=== PATIENT | male | born 1995 | race Caucasian/White ===

== ENCOUNTER 2024-05-14 09:21 | Outpatient (AMB) | payer MEDICAID, SELFPAY ==
[2024-05-14 09:22] VITALS: BP 130/76; PULSE 73; BMI 32.3
--- NOTE | 2024-05-14 09:22 | MHC.OFFVIS ---
Vital Signs 05/14/24 09:22 Height 5 ft 10 in Weight 224 lb 13.944 oz BMI 32.3 BP 130/76 Blood Pressure Location Lt brachial Position Sitting Pulse 73 Intake Visit Reasons: Weight Loss Intake Note: Emile presents as a new patient. CC: States he has a hiatal hernia and issues with his stools. He has 3 BMs a day. Sometimes it is on the looser side and blood when he wipes. Had a CT scan and it showed hiatal hernia. 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 Allergies pollen Allergy (Unknown, Uncoded 05/14/24 09:23) Unknown HPI HPI Weight Loss: Details: HPI 29 yr old m being seen for assessment He has issues with crampy pain on and off 4 months around umbilical area not relieved with passing gas or stool, no worsening factors goes daily to bath, but stools more softer than normal, shape also changed, seen blood when wipes no n/v he takes omeprazole for gerd and it works he has bloating sometimes weight is stable appetite is fair ROS: Constitutional : No Weight loss, No Fever, No Chills ENT/Mouth : No sore throat, No Rhinorrhea Eyes: No Swelling, No Redness Cardiovascular : No Chest Pain, No SOB, No Edema Respiratory : No Cough, No Sputum, No Wheezing Gastrointestinal : see HPI Genitourinary : NO Dysuria, No Urinary Frequency, No Hematuria, No Urgency Musculoskeletal : No joint pain, No Myalgias, No Joint Swelling Skin : No Skin Lesions, No rash Neuro : No Weakness, No Numbness, No Dizziness, No Headache Psych : No Anxiety/Panic, + Depression Heme/Lymph: No Bruising, No Lymphadenopathy Endocrine : No Polyuria, No Polydipsia All other systems reviewed and are negative. 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 VITAL SIGNS:see workflow HEENT: Nonicteric sclerae, PERRLA, EOMI. Oropharynx clear. Moist mucous membranes. Conjunctivae appear well perfused. No thyroid mass. CHEST: Chest wall is nontender. HEART: Regular rate and rhythm without murmurs. LUNGS: Clear to auscultation bilaterally. ABDOMEN: Soft, positive bowel sounds, nontender, no organomegaly.no flank tenderness SKIN: No rash, no excessive bruising, petechiae, or purpura. NEUROLOGIC: Cranial nerves II-XII intact without motor/sensory deficit. Psych: normal affect A/P: 1/ abn bowel habit--FH of CRC and polyps in second degree relatives PLAN: 1/ he had labs and CT done at [facility], get results 2/ EGD and colonoscopy with [facility] Family History (Updated 05/14/24 @ 09:23 by LESLIE Sawant) Maternal Grandfather Colon cancer Maternal Uncle Colon cancer Physical Exam Vital Signs: Last Vital Signs Pulse 73 05/14/24 09:22 BP 130/76 05/14/24 09:22 BMI result Body Mass Index 32.3 Assessment & Plan Assessment & Plan (1) Abnormal bowel habits: Code(s): R19.8 - Other specified symptoms and signs involving the digestive system and abdomen Category: Medical Plan: see above Medications: New sodium,potassium,mag sulfates 17.5-3.13-1.6 gram (Suprep Bowel Prep Kit) DILUTE; drink 1/2 at 6-8 pm and half at 11 PM- 1AM 354 mL 0RF Coding Level of Care Code New Pt Level 4 (15675) Diagnoses Abnormal bowel habits R19.8
--- OUTSIDE RECORDS SUMMARY | 2024-05-14 09:44 | XMS_ITS | Data Portability ---
Author Organization [facility]oe [facility] [address] Address [address] [place] [address] Assessment Encounter Date Assessment Date Assessment LastModified by Organization Details LastModified Time 07/18/2023 07/18/2023 Based on you jason m and presentation I am diagnosing you with a viral gastroenteritis. This should resolve on its own without any intervention in 1-5 days. This may be contagious to try and avoid family members while you are sick. Use a seperate bathroom if possible. These are my recommendations to help with your symptoms and help you recover: 1. Drink plenty of fluid and stay hydrated. 2. Wash hands and home surfaces regularly. 3. Do not share food or drinks 4. Try to eat foods like toast, chicken broth, bananas. 5. Stay away from Gatorade, but you can drink pedialyte, soda, or water. 6. Avoid Dairy I would be seen again if you develop: 1. Severe abdominal pain 2. Vomiting more than 48 hours 3. Fever > 101.0 4. Blood in Stool 5. Blood in Urine. Thank you for using [facility], please feel free to contact us if you have any questions or concerns. rylee Not available 07/18/2023 09:58:02 Plan of Treatment Reminders Order Date Submit Date Provider Last Modified By Organization Details Last Modified Time Details Appointments None recorded. Lab None recorded. Referral None recorded. Procedures None recorded. Surgeries None recorded. Imaging None recorded. Medication Orders Imodium A-D 2 mg tablet 2023 024 [facility][id number], [address] [place], [address], 09:57:44 ondansetron 4 mg disintegrat ing tablet 2023 024 [facility]/Pharmacy #[id number], [address] [place], [address], 09:57:44 Patient TargetsNo targets recorded. Patient Instructions Encounter Date Encounter Id Patient Instructions Last Modified By Organization Details Last Modified Time 07/18/2023 [id number] diarrhea: care instructions ronchaga Not available 07/18/2023 09:57:42 managing nausea from cancer treatment: care instructions ronchaga Not available 07/18/2023 09:57:42 gastroenteritis: care instructions ronchaga Not available 07/18/2023 09:57:42 Reason for Referral None Reported. Problems Name Problem SNOMED Code Status Onset Date Resolution Date Notes Provider Name and Address Organization Details Recorded Time Gastroenteritis 50306021 Active 2023 KIRA FIELDS NP [address] , [place], [place], [address], [place] - [facility] 09:55:10 Nausea, vomiting and diarrhea 3759967 Active 2023 KIRA FIELDS NP [address] , [place], [address], [place] - [facility] 4 09:55:19 Diarrhea 94153190 Active 2023 KIRA FIELDS NP [address], [place], [address], [place] - [facility] 09:55:41 Problem Notes None recorded. Medical Equipment None Reported. Allergies No known drug allergies Medications Name Sig Start Date Stop Date Status Note LastModified by Organization Details LastModified Time Imodium A-D 2 mg tablet Take 1 tablet 3 times a day by oral route for 5 days. 2023 active Not Available Not Available Not Avai lable ondansetron 4 mg disintegrati ng tablet Place 2 tablets twice a day by translingua l route as needed, for nausea. 2023 active Not Available Not Available Not Avai lable Vitals Date Recorded Body height Body mass index (BMI) Body weight Oxygen saturation Oxygen saturation in Arterial blood by Pulse oximetry Respiratory rate Body temperature Systolic blood pressure Diastolic blood pressure Provider Name and Address Organization Details Last Updated DateTime 4 177.8 cm 30.8 kg/m2 32652.3 6 g 98 % 98 % 16 /min 97.8 [degF] 118 mm[Hg] 82 mm[Hg] Vida Rivera [place] - [facility] 09:40:23 Social History Question Answer Notes LastModified by Organizat ion Details LastModified Time Tobacco Smoking Status Never Smoker Vida Rivera sierra [place] - [facility] 07/18/2023 09:41:33 What Is Your Level Of Alcohol Consumption? None Information not available 07/18/2023 Are You Currently Employed? Yes Information not available 07/18/2023 Which Illicit Or Recreational Drugs Have You Used? James Information not available 07/18/2023 What Is Your Water Source? City Information not available 07/18/2023 What Is Your Heat Source? Gas Information not available 07/18/2023 Have You Had Direct Contact, Or Contact During Intimacy, With Monkeypox Rash, Scabs, Or Body Fluids From A Person With Monkeypox? No Information not available 07/18/2023 What Was The Date Of Your Most Recent Tobacco Screening? 07/18/2023 Information not available 07/18/2023 Do You Use Any Illicit Or Recreational Drugs? Yes Information not available 07/18/2023 Have You Recently Traveled Abroad? No Information not available 07/18/2023 Do You Or Have You Ever Used Any Other Forms Of Tobacco Or Nicotine? No Information not available 07/18/2023 Sex: Unknown Functional Status None recorded. Mental Status None recorded. Family History Relationship Description Onset Age of this Age Resolved Age Notes LastModified by Organization Details LastModified Time Mother Diabetes mellitus Not available 2023 09:41:04 Father Hypertensive disorder Not available 2023 09:41:17 Medical History No medical history recorded. Past Encounters Encounter ID Performer Location Encounter Start Date Encounter Closed Date Diagnosis/Indication Diagnosis SNOMED-CT Code Diagnosis ICD10 Code Diagnosis Note [id number] [address] [place] [address] 12/21/2021 12:08:55 12/21/2021 13:39:30 [id number] [address] [place] [address] 03/29/2020 10:58:17 03/29/2020 15:58:49 [id number] [place] [address] 06/26/2021 16:55:45 06/26/2021 17:53:15 [id number] [address] [place] [address] 10/22/2019 14:19:12 10/22/2019 15:40:31 [id number] KIRA FIELDS NP [address] [place] [address] 07/18/2023 09:22:00 07/18/2023 10:02:28 Nausea, vomiting and diarrhea 7080385 R11.2 Gastroenteritis 64941060 K52.9 Diarrhea 41100341 R19.7 Health Concerns Section Related Observation LastModified by Organization Detai ls LastModified Time None Recorded Concern Status LastModified by Organization Details LastModified Time None Recorded Advance Directives Directive None Recorded Payers Encounter Date Sequence Insurance Name Policy Number Policy Leon Covered Member ID Leon Member ID Guarantor Name 07/18/2023 [facility] Emile Cornelius [id number] Emile Cornelius Notes Date Note Type Note Provider Name and Address Organization Details Recorded Time 07/18/2023 text/html Abdominal PainReported bypatient.source of patient informationpatient ; Patient arrived at Urgent Care ambulatory Location:generaliz ed Quality:sharp;cram ping Severity:pain level 2/10;mild Duration:started: (yesterday) Onset/Timing:sudde n Context:no travel; Denies history of IBS or Crohns Disease. Modifying Factors:nothing makes it worse; nothing gives relief Associated Symptoms:no fever; no chills; no nausea; no vomiting; no diarrhea; no constipation; no blood in the urine; no heartburn; no shortness of breath; no change in bowel/bladder habitsNotes:The patient reports still has gallbladder and Appendix. Pt has , vomiting nausea and diarrhea,no new foods taken and no fever, diarrhea x3 today , no confusion, no head ache and no dizziness KIRA FIELDS NP [address] [place], [address], [place] - [facility] 07/18/2023 11:11:04
--- OUTSIDE RECORDS SUMMARY | 2024-05-14 09:44 | XMS_ITS | Data Portability ---
Author Organization [place] [facility] Address [address] [place] [phone] Assessment No assessment recorded. Plan of Treatment Reminders Order Date Submit Date Provider Last Modified By Organization Details Last Modified Time Details Appointments NEW PROBLEM 2024 10:15A M Jeovanny mera PA-C Not available Not available Not available Lab None recorde d. Referral physica l therapi st referra l - s/p Right knee AAA w/ partial lateral menisec antwan ROM as tolerat edstren gthenin g once full gait trainin g [facility], [address] [place], [address], 09/11/2023 12:41:20 Procedures None recorde d. Surgeries knee arthros copy with partial medial or lateral menisce ctomy (SURG) 2023 024 [email or web address] [facility]iology (Scheduling), [address] [place] [address], [address], 03/29/2024 15:50:33 Imaging XR, knee, 4 or more view - RM 219 RIGHT KNEE STANDAR D [facility], [address], [facility] [address], [place], [address], 08/30/2023 20:35:55 Medication Orders None recorde d. Patient TargetsNo targets recorded. Patient InstructionsNo instructions recorded. Reason for Referral Physical Therapist Referral for Acute tear of lateral meniscus of right knee s/p Right knee AAA w/ partial lateral menisectomy ROM as toleratedstrengthening once full gait training Referring Physician: Jeovanny Dodson, Orthopedic Surgery, [id number] Encounter Date: 08/26/2023 Medical Equipment None Reported. Medications Name Sig Start Date Stop Date Status Note LastModified by Organization Details LastModified Time loperamide 2 mg capsule TAKE 1 CAPSULE BY MOUTH THREE TIMES A DAY FOR 5 DAYS active Not Available Not Available N ot Available sulfamethoxa zole 800 mg-trimethop rim 160 mg tablet TAKE 1 TBALET BY MOUTH TWICE A DAY FOR 7 DAYS active Not Available Not Available No t Available doxycycline monohydrate 100 mg tablet TAKE 1 TABLET BY MOUTH TWICE A DAY FOR 7 DAYS active Not Available Not Available No t Available doxycycline monohydrate 100 mg capsule TAKE 1 CAPSULE BY MOUTH TWICE A DAY FOR 7 DAYS active Not Available Not Available No t Available ibuprofen 600 mg tablet TAKE 1 TABLET BY MOUTH EVERY 6 HOURS NEEDED FOR MODERATE PAIN active Not Available Not Available No t Available ondansetron 4 mg disintegrati ng tablet PLACE 2 TABLETS TWICE A DAY BY TRANSLINGUA L ROUTE NEEDED, FOR NAUSEA. active Not Available Not Available No t Available naproxen 500 mg tablet Take 1 tablet twice a day by oral route for 30 days. 2023 active Not Available Not Available Not Avai lable oxycodone 5 mg tablet TAKE 1-2 TABLETS EVERY 6 HOURS NEEDED FOR 3 DAY RX. active Not Available Not Available No t Available Vitals Date Recorded Body height Body mass index (BMI) Body weight Body temperature Heart rate Oxygen saturation Oxygen saturation in Arterial blood by Pulse oximetry Systolic blood pressure Diastolic blood pressure Provider Name and Address Organization Details Last Updated DateTime 4 177.8 cm 31.6 kg/m2 15997.3 2 g 97.6 [degF] 98 /min 59 % 59 % 120 mm[Hg] 70 mm[Hg] LIV FERNANDEZ [facility] 4 11:14:26 Date Recorded Body height Body mass index (BMI) Body weight Body temperature Provider Name and Address Organization Details Last Updated DateTime 08/26/2023 177.8 cm 31.6 kg/m2 75314.32 g 97.3 [degF] URVASHI RUBI [facility] 08/26/2023 11:14:56 Social History None recorded. Functional Status None recorded. Mental Status None recorded. Family History Nothing Reported. Medical History No medical history recorded. Past Encounters Encounter ID Performer Location Encounter Start Date Encounter Closed Date Diagnosis/Indication Diagnosis SNOMED-CT Code Diagnosis ICD10 Code Diagnosis Note [id number] [address] [place] [address] 08/06/2023 10:19:48 08/30/2023 20:35:55 Pain of right knee joint 4375197381 89379 M25.561 Acute tear of lateral meniscus of right knee 4654311472 0978742 S83.281A [id number] Jeovanny Dodson PA-C [address] [place] [address] 08/26/2023 10:59:57 09/11/2023 12:41:20 Acute tear of lateral meniscus of right knee 9888204054 3681676 S83.281A Health Concerns Section Related Observation LastModified by Organization Detai ls LastModified Time None Recorded Concern Status LastModified by Organization Details LastModified Time None Recorded Advance Directives Directive None Recorded Payers Encounter Date Sequence Insurance Name Policy Number Policy Leon Covered Member ID Leon Member ID Guarantor Name 08/06/2023 [facility] Emile Cornelius [id number] Emile Cornelius 08/26/2023 [facility] Emile Cornelius [id number] Emile Cornelius Notes Date Note Type Note Provider Name and Address Organization Details Recorded Time 08/06/2023 text/html I am seeing the patient today under the supervision of Dr. Deleon who was available but who did not see the patient.HPI: Emile presents for ongoing pain across the lateral aspect of the right knee. He is a 28-year-old male carrier was experiencing pain across the lateral knee since March. He does feel that symptoms may have been initially caused in [place] [employer] in 2016 but cannot confirm. He experiences a catching a LOC sensation with a buckling affected knee. He has pain across the lateral knee with ambulation. 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 MRI confirms presence of a bucket handle type tear of the lateral meniscus with some early chondral/degenerative changes to the lateral compartmentPMH: NoneFamily Hx: NegativeMeds: No current medicationsAllergies: No known drug allergiesROS: NegativeSocial Hx: NegativePHYSICAL EXAMINATION: The patient is well appearing and in no apparent distress. Alert and oriented x3. Gait is symmetric.EXAM:HEENT is unremarkableHeart regular rate and rhythm without murmurs rubs gallopsAbdomen soft nontender nondistended positive bowel sounds.Lungs are clear bilaterally without rales rhonchi or wheezesPeripheral, vascular, lymphatic examination, skin, neurological, coordination, reflexes, sensation are within normal limits.Left Knee ROM is full, stability intact both anterior, posterior, and varus/valgus stress at both 0 and 30 degrees of flexion. No meniscal tenderness. Negative Miriam's maneuver. No crepitus,no effusion, 5/5 strength.Right Knee ROM is full, stability intact both anterior, posterior, and varus/valgus stress at both 0 and 30 degrees of flexion. 2+ meniscal tenderness. Positive Miriam's maneuver. No crepitus,no effusion, 5/5 strength.IMPRESSION: Right knee torn (bucket handle type tear) lateral meniscusPLAN: Patient remains frustrated by his lack of improvement like to proceed with right knee arthroscopy and partial lateral meniscectomy Dr. Mak. Risks benefits expectation short-term goals long-term goals all of which were discussed today. No physical exam findings that would prevent patient from going for surgery this time. Expectations length of time of recovery and time to miss from work were discussed in detail today. The patient like proceed as outlined at this time. Jeovanny Dodson PA-C [address] [facility], [place], [address], [facility] 08/06/2023 11:50:37 08/26/2023 text/html I am seeing the patient today under the supervision of Dr. Izaguirre who was available but who did not see the patient.Patient returns postop right knee arthroscopy. Treated with partial lateral meniscectomy. Also found arthritic changes to the knee to include: Great 2/3 changes to the patellofemoral compartment and minor grade 2 changes laterally.Patient returns doing well. Denies any local or systemic signs of infection. Denies any calf pain.On exam: Afebrile, vital signs stable. Knee portal wounds were clean, dry, and intact. Sutures were removed and replaced with Steri-Strips. Comfortable range of motion the knee. Calf was supple.Impression: Status post arthroscopy of the kneePlan: Reviewed intraoperative findings, photos, and postoperative care. Discussed slow transition to activities per tolerance. Patient is to follow-up in the future as needed. Jeovanny Dodson PA-C [address], [place], [address], [facility] - [facility] 08/26/2023 11:21:23
--- OUTSIDE RECORDS SUMMARY | 2024-05-14 09:44 | XMS_ITS | Clinical Summary ---
Author Organization [facility] ity Address [address] [place] [address] Care Team Providers Care Investor Relations Associate Name Role Phone Unavailable Primary Care Provider Unavailabl e Social History Tobacco Use Types Packs/Day Years Used Date Smoking Tobacco: Never Assessed Sex and Gender Information Value Date Recorded Sex Assigned at Not on file Legal Sex Male 9:03 PM EST Gender Identity Not on file Sexual Orientation Not on file Plan of Treatment Health Maintenance Due Date Last Done Comments DTaP,Tdap,and Td Vaccines (1 - Tdap) 01/29/2003 Hepatitis B Vaccines (1 of 3 - 19+ 3-dose series) 01/29/2015 Depression Screening 04/25/2023 HIV Screening 04/25/2023 Hepatitis C Screening 04/25/2023 Social Influencers of Health Screening 04/25/2023 COVID-19 Vaccine ( - 2023-2 5 season) 2023 Influenza Vaccine (#1) 2023 HIB Vaccines Aged Out No longer eligi ble based on patient's age to complete this topic HPV Vaccines Aged Out No longer eligi ble based on patient's age to complete this topic Hepatitis A Vaccines Aged Out No long er eligible based on patient's age to complete this topic IPV Vaccines Aged Out No longer eligi ble based on patient's age to complete this topic MMR Vaccines Aged Out No longer eligi ble based on patient's age to complete this topic Meningococcal ACWY Vaccine Aged Out N o longer eligible based on patient's age to complete this topic Meningococcal B Vacine Aged Out No lo nger eligible based on patient's age to complete this topic Pneumococcal Vaccine: Pediat rics (0 to 5 Years) and At-Risk Patients (6 to 64 Years) Aged Out No longer eligible b ased on patient's age to complete this topic RSV Immunization Patients Un nikolay 20 months Aged Out No longer eligible b ased on patient's age to complete this topic Varicella Vaccines Aged Out No longer eligible based on patient's age to complete this topic
== END 2024-05-14 10:02 | disposition home or self-care (01) ==
PROVIDERS: PCP Pediatrics; Visit Provider Internal Medicine Gastroenterology
DX: R19.8 Other specified symptoms and signs involving the digestive system and abdomen (principal)
CPT/HCPCS: 99204

== ENCOUNTER → 2024-05-14 09:21 | Outpatient (BNVA) | payer MEDICAID, SELFPAY | PROVIDERS: PCP Pediatrics; Visit Provider Internal Medicine Gastroenterology | DX: R19.8 Other specified symptoms and signs involving the digestive system and abdomen (principal) | CPT/HCPCS: 99202 ==

== ENCOUNTER 2024-07-22 11:00 | Day surgery (SDC) | payer OTHER, SELFPAY ==
[2024-07-20 14:17] VITALS: BMI 32.1
--- OUTSIDE RECORDS SUMMARY | 2024-07-21 08:19 | XMS_ITS | Encounter Summary ---
Author Name [facility] [place] Organization [facility] [place] [facility] [place] Address [address] [place] [address] Care Team Providers Care Wrapper Hands Sprayer Name Role Phone MAK TARIQ Primary Care Provider Unavailab le Selected Encounter This section includes the information on record at [place] for the Encounter. Date/Time Encounter Type Encounter Description Reason Provider Source Apr 22, 2024 10:30 AM [facility]NA[facility] - IND ICD-10-CM F43.12 Post-traumatic stress disorder, chronic BETZAIDA RABAGO Luisa Encounter Template Text not used by [place] Assessments - Encounter Diagnoses This section includes the primary and secondary diagnoses documented for the Encounter. Date/Time Primary/Secondary Diagnosis Diagnosis Name Provider Source Apr 22, 2024 10:59 AM PRIMARY Post-traumatic stress disorder, chronic BETZAIDA RABAGO Apr 22, 2024 10:59 AM SECONDARY Anxiety disorder, unspecified BETZAIDA RABAGO Apr 22, 2024 10:59 AM SECONDARY Insomnia, unspecified BETZAIDA RABAGO Apr 22, 2024 10:59 AM SECONDARY activity BETZAIDA RABAGO YINA Plan of Treatment: Future Appointments (+ 6 months) and Future Tests (+/- 45 days) The Plan of Treatment section includes future care activities for the patient from all [place] treatmentfacilities. This section includes future appointments and future orders which are active, pending or scheduled. Future Appointments This section includes appointments that were scheduled to occur 6 months from the date of the Encounter, up to a maximum of 20 appointments. The data comes from all [place] treatment facilities. Appointment Date/Time Appointment Type Appointme nt Facility Name Apr 26, 2024 11:30 AM AMBULATORY [place]ATRY [place] [facility] [place] [facility] Apr 29, 2024 08:00 AM [facility] May 27, 2024 11:30 AM [facility] Jun 02, 2024 10:15 AM AMBULATORY - MEDICINE [facility] Jun 22, 2024 11:30 AM [facility] Jul 22, 2024 12:20 PM [facility] Active, Pending, and Scheduled Orders This section includes a listing of several types of active, pending, and scheduled orders, including clinic medications orders, diagnostic test orders, procedure orders and consult orders; where the start date of the order is 45 days before the date of the Encounter or 45 days after the date of theEncounter. The data comes from all [place] treatment facilities. Test Date/Time Test Type Test Details Facility Name May 18, 2024 10:18 AM Consult Order REPLACED BY [facility] Toll Line Mechanic's Choice [facility] Lab Results: +/- 30 days of the encounter This section includes the Chemistry and Hematology Lab Results on record with [place] for the patient. Radiology Reports and Pathology Reports are provided separately, in subsequent sections. Lab Results This section contains the Chemistry/Hematology Results that were resulted 30 days before or 30 daysafter the date of the Encounter. Date/Time Source Result Type Result - Unit Interpretation Reference Range Specimen Type Comment May 04, 2024 02:38 PM [facility] SEMEN ANALYSIS,FERTILITY (FHI) SEMINAL FLUID Specimen Type: SEMINAL FLUID No comment entered. Ordering Provider: MAK TARIQ Report Released Date/Time: Apr 18, 2024 09:55 AM Reporting Lab: [facility] [address] [address] Performing Lab: [address] [address] SEMEN ANALYSIS,FERTILITY (FHI) SEE LIZBETH Justice Apr 14, 2024 01:50 PM [facility] CBC AND DIFF (AUTO) BLOOD Specimen Ty pe: BLOOD No comment entered. Ordering Provider: MAK TARIQ Report Released Date/Time: Apr 14, 2024 01:26 PM Reporting Lab: [facility] [address] [address] Performing Lab: [facility] [address] [address] WBC 10.70 10*3/uL 4.50-11.00 RBC 4.73 10*6/uL 4.23-5.66 HGB 14.5 g/dL 12.8-17 HCT 41.5 39.2-50.4 MCV 87.7 fL 82-99 MCHC 34.9 g/dL 30.8-35.1 PLT 257 10*3/uL 140-360 RDW-CV 11.7 L 12.0-16.0 MONO, ABS 0.69 10*3/uL 0.30-1.10 MCH 30.7 pg 26.2-32.6 NEUT % 61.4 43.7-75.8 LYMPH % 30.5 14.0-42.3 MONO % 6.4 5.1-13.7 EOS % 0.8 0.4-6.8 BASO % 0.4 0.1-2.0 NEUT, ABS 6.57 10*3/uL 2.20-7.60 LYMPH, ABS 3.26 10*3/uL H 1.00-3.20 EOS, ABS 0.09 10*3/uL 0.03-0.44 BASO, ABS 0.04 10*3/uL 0.01-0.13 IMMATURE GRAN % 0.5 0.0-0.7 IMMATURE GRAN, ABS 0.05 10*3/uL 0.00-0.0 6 NRBC % 0.0 0.0-0.0 NRBC, ABS 0.00 10*3/uL 0.00-0.00 Apr 14, 2024 01:16 PM [facility] COVID-19 FLU/RSV DIAGNOSTIC PANEL NASOPHARYNX Specimen Type: NASOPHARYNX Comment: This test is authorized for emergency use only. False negative results may occur if virus is present at levels below the analytical limit of detection.Negative results do not preclude SARS-CoV-2, influenza or RSV infection and should not be used as the sole basis for treatment or other patient management decisions.Cepheid FLUVID: HCPs: https://www.fda.gov/media/034430/download. Patients: https://www.fda.gov/media/893138/download Ordering Provider: MAK TARIQ Report Released Date/Time: Apr 14, 2024 01:05 PM Reporting Lab: [facility] [address] [address] Performing Lab: [facility] [address] [address] COVID-19 PCR (FLUVID) NEGATIVE NEGATIVE FLU A PCR (FLUVID) NEGATIVE FLU B PCR (FLUVID) NEGATIVE RSV PCR (FLUVID) NEGATIVE Apr 08, 2024 10:18 AM [facility] URINALYSIS URINE Specimen Type: URINE Comment: If Glucose = >500 and Ketones are positive, please alert the Physician. Ordering Provider: CLEO HOPKINS Report Released Date/Time: Mar 30, 2024 10:57 AM Reporting Lab: [facility] [address] [address] Performing Lab: [facility] [address] [address] UA COLOR Light-Yellow Yellow UA APPEARANCE Clear Clear UA GLUCOSE Normal mg/dL Negative UA KETONES NEGATIVE mg/dL Negative UA BLOOD NEGATIVE mg/dL Negative UA PROTEIN 10 mg/dL Negative UA NITRITE NEGATIVE mg/dL Negative UA BILIRUBIN NEGATIVE mg/dL Negative UA SPECIFIC GRAVITY 1.019 1.016-1.022 UA pH 6.5 5.0-9.0 UA UROBILINOGEN Normal mg/dL <2.0 UA LEUKOCYTE NEGATIVE Negative Apr 08, 2024 10:08 AM [facility] TSH SERUM Specimen Type: SERUM No comment entered. Ordering Provider: CLEO HOPKINS Report Released Date/Time: Apr 15, 2023 03:54 PM Reporting Lab: [facility] [address] [address] Performing Lab: [address] [address] TSH 1.08 u[IU]/mL 0.35-5.00 Apr 08, 2024 10:08 AM [facility] BASIC METABOLIC PANEL (fasting) SERUM Specime n Type: SERUM No comment entered. Ordering Provider: CLEO HOPKINS Report Released Date/Time: Apr 15, 2023 03:54 PM Reporting Lab: [address] [address] Performing Lab: [address] [address] UREA NITROGEN 16 mg/dL 7-25 GLUCOSE 94 mg/dL 65-100 SODIUM 139 mmol/L 135-145 POTASSIUM 4.1 mmol/L 3.5-5.0 CHLORIDE 106 mmol/L 100-110 CO2 25 meq/L 20-30 CREATININE, Serum 1.17 mg/dL 0.50-1.40 eGFR(CKD-EPI 2020) 87 mL/min >60 Apr 08, 2024 10:08 AM [facility] LIPID PANEL FASTING SERUM Specimen Type: SERU M No comment entered. Ordering Provider: CLEO HOPKINS Report Released Date/Time: Apr 15, 2023 03:54 PM Reporting Lab: [address] [address] Performing Lab: [address] [address] CHOLESTEROL 146 mg/dL TRIGLYCERIDE 103 mg/dL 0-150 LDL calculated 87 mg/dL 0-129 CHOL/HDL 3.8 HDL CHOLESTEROL 38 mg/dL L 40-60 Apr 08, 2024 10:08 AM [facility] HEMOGLOBIN A1C PANEL BLOOD Specimen Type: BLO OD Comment: Values obtained from A1C measurements can vary. For atypical A1C assays, a reported value of 7.0 could actually be between 6.72 and 7.28 if measured by a reference method. A reported value of 9.0 could actually be between 8.73 and 9.27. Ref: http://www.ngsp.org/CAPdata.asp Ordering Provider: CLEO HOPKINS Report Released Date/Time: Apr 15, 2023 03:54 PM Reporting Lab: [address] [place] [address] Performing Lab: [address] [address] HEMOGLOBIN A1C 5.0 4.0-5.6 Apr 08, 2024 10:08 AM [facility] LIVER FUNCTION SERUM Specimen Type: SERUM No comment entered. Ordering Provider: CLEO HOPKINS Report Released Date/Time: Apr 15, 2023 03:54 PM Reporting Lab: [address] [address] Performing Lab: [address] [address] PROTEIN,TOTAL 7.4 g/dL 6.0-8.3 ALBUMIN 4.5 g/dL 3.5-5.0 ALKALINE PHOSPHATASE 67 U/L 40-150 AST 20 U/L 5-34 ALT 47 U/L BILIRUBIN, TOTAL 0.7 mg/dL 0.2-1.2 Apr 08, 2024 10:08 AM [facility] CBC AND DIFF (AUTO) BLOOD Specimen Type: BLOO D No comment entered. Ordering Provider: CLEO HOPKINS Report Released Date/Time: Apr 15, 2023 03:54 PM Reporting Lab: [address] [address] Performing Lab: [address] [address] WBC 12.14 10*3/uL H 4.50-11.00 RBC 5.20 10*6/uL 4.23-5.66 HGB 15.9 g/dL 12.8-17 HCT 45.7 39.2-50.4 MCV 87.9 fL 82-99 MCHC 34.8 g/dL 30.8-35.1 PLT 222 10*3/uL 140-360 RDW-CV 11.8 L 12.0-16.0 MONO, ABS 0.74 10*3/uL 0.30-1.10 MCH 30.6 pg 26.2-32.6 NEUT % 80.0 H 43.7-75.8 LYMPH % 12.9 L 14.0-42.3 MONO % 6.1 5.1-13.7 EOS % 0.3 L 0.4-6.8 BASO % 0.2 0.1-2.0 NEUT, ABS 9.72 10*3/uL H 2.20-7.60 LYMPH, ABS 1.56 10*3/uL 1.00-3.20 EOS, ABS 0.04 10*3/uL 0.03-0.44 BASO, ABS 0.02 10*3/uL 0.01-0.13 IMMATURE GRAN % 0.5 0.0-0.7 IMMATURE GRAN, ABS 0.06 10*3/uL 0.00-0.0 6 NRBC % 0.0 0.0-0.0 NRBC, ABS 0.00 10*3/uL 0.00-0.00 Social History: Smoking Status (Most current) and Tobacco Use (All prior to encounter date) This section includes the most current, and the historical, smoking and tobacco- related health factors from the [place] facility where the Encounter took place. Current Smoking Status This section includes the most current smoking, or tobacco-related health factor, from the [place] facility where the Encounter took place. Date/Time Current Smoking Status Comment Facil ity Apr 14, 2024 01:00 PM VA-TOBACCO NEVER USED OTHER TYPE [facility] Tobacco Use History This section includes a history of the smoking, or tobacco-related health factors, that were collected on or before the date of the Encounter. The data comes from the [place] facility where the Encounter took place. Date/Time Smoking Status/Tobacco Use Comment F acility Apr 14, 2024 01:00 PM VA-TOBACCO NEVER USED OTHER TYPE [facility] Mar 18, 2023 03:30 PM VA-TOBACCO NEVER USED [facility] Apr 09, 2022 09:00 AM VA-TOBACCO NEVER USED [facility] Jun 30, 2019 11:33 AM VA-TOBACCO NEVER USED [facility] Radiology Reports: +/- 30 days of the encounter Radiology Reports For cases when an order for radiology services may have been completed prior to the date of the Encounter, the report list includes the Radiology Reports that were completed up to 30 days before dateof the Encounter. For cases when an order for radiology services may have been completed after the date of the Encounter, the report list also includes the Radiology Reports that were completed up to30 days after date of the Encounter. The data comes from all [place] treatment facilities. 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 Comparison: None. Findings: The knee joint spaces are well maintained. Evidence of prior [place]-Schlatter disease of the anterior tibia. The left patella appears normal. There is no suprapatellar joint effusion present. No bony fracture, dislocation or subluxation is seen. The bony mineralization is normal. Addendum: Addendum: Study: AP view of the pelvis with frogleg lateral view of the right hip. Comparison: None. Findings: The bony mineralization is normal. There is prominent overlying bony over coverage of the bilateral superior acetabulum. In the correct clinical scenario, this can be seen secondary to pincer-type femoroacetabular impingement predisposing to early osteoarthritis of the hips. Clinical correlation is recommended. Mild joint space narrowing is present to the right hip. The left hip joint space appears normal. The pelvic bones are intact. No acute bony abnormality is seen. Impression: No acute bony abnormality identified, as described above. Addendum: Abnormal right hip findings, as described above. 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 Comparison: None. Findings: The knee joint spaces are well maintained. Evidence of prior [place]-Schlatter disease of the anterior tibia. The left patella appears normal. There is no suprapatellar joint effusion present. No bony fracture, dislocation or subluxation is seen. The bony mineralization is normal. Impression: No acute bony abnormality, as described above. Primary Diagnostic Code: No immediate attention required Primary Interpreting Staff: LATIA DODSON JR, Radiologist (Intensive Care Specialist) /EAD LATIA DODSON JR [facility] Encounter Notes: All associated encounter notes This section contains the clinical notes associated to the Encounter. Date/Time Encounter Note(s) Provider Source Apr 22, 2024 10:51 AM MENTAL HEALTH CONS ULT: LOCAL TITLE: CONSULT REPORT/CRANIAL ELECTROTHERAPY STIMULATION STANDARD TITLE: MENTAL HEALTH CONSULT DATE OF NOTE: APR 22, 2024@10:51 ENTRY DATE: APR 22, 2024@10:52 AUTHOR: BETZAIDA RABAGO EXP COSIGNER: URGENCY: STATUS: COMPLETED F: Alpha-Stim Trial [place] arrived at clinic re: Alpha-Stim Trial # 2 is known to securities underwriter and identified himself by name and date of . Ayesha is alert and oriented to person, place, time, and situation. Ayesha denies SI/HI, and or the use of any alcohol or illicit drugs. Blood Pressure: 127/80 (06/10/2023 10:39) Pain: 1 (04/14/2024 13:15) Patient Height: 70 in [177.8 cm] (04/14/2024 13:15) Patient Weight: 234 lb. [106.14 kg] (04/14/2024 13:15) Pulse: 65 (04/14/2024 13:15) Respiration: 20 (04/14/2024 13:15) Temperature: 96 F [35.6 C] (04/14/2024 13:15) D: Active problems - Computerized Problem List is the source for the followin. Family history of malignant neoplasm 2. FH: Crohn's disease 3. Right knee pain 4. Obstructive sleep apnea 5. Chronic post-traumatic stress disorder following combat 6. Attention deficit hyperactivity disorder, combined type 7. Liver function tests abnormal 8. Family history of diabetes mellitus 9. Overweight 10. Chronic back pain 11. Urine chlamydia trachomatis test positive Active Outpatient Medications (including Supplies): Active Outpatient Medications Status ====== 1) CLOTRIMAZOLE 1% TOP CREAM APPLY A SMALL AMOUNT TOPICALLY ACTIVE TWICE DAILY FOR FUNGAL INFECTION Indication: FOR FUNGAL INFECTION OF THE SKIN A/P: is utilizing Alpha-Stim for the diagnoses of PTSD, insomnia and anxiety. Ayesha initially trialed the Alpha-Stim on 04/16/2021 with therapeutic benefit achieved. Ayesha utilized the Alpha-Stim again for 20 minutes and reports he noted almost instant benefit again. Ayesha reports feeling more relaxed and experiencing a sense of calm while using the device. Ayesha is excited by the potential for having reduced depression and anxiety as well as improved sleep in a non-pharmacological way and is requesting an Alpha-Stim of his own. Ayesha was encouraged to remain mindful of anything he notes good or bad after using the Alpha-Stim and is aware that he may contact securities underwriter to discuss as needed. Patient Flow Coordinator will order Ayesha his personal device if he continues to find therapeutic benefit and remains interest in acquiring his own Alpha-Stim after 24 hours. Ayesha will be contacted and oriented to his personal Alpha-Stim once it has arrived in the clinic. Upcoming Appointments: 04/26/2024 11:30 CWM/SO/VVC/MHC/PSYTR 1 04/29/2024 08:00 COM CARE-GI GENERAL understands how to utilize the Veterans Crisis Line (9-8-8 option 1) and urged to call that number at any time if they have thoughts about suicide and, or to call 911 or go to nearest E.R. if they have suicidal thoughts. is aware that she/he can call or walk-in at anytime prior to next appointment. was provided with securities underwriter's contact information for use as needed. No barriers; Patient understands and agrees to current treatment plan. If has any questions, concerns, or changes in current health status will call or come [facility] to the [facility]. 30 minutes spent in patient care and education. /theodore/ BETZAIDA RABAGO, MSN, RN, CNL MENTAL HEALTH NURSE CABINET FINISHER Signed: 04/22/2024 11:03 BETZAIDA RABAGO [facility]
--- OUTSIDE RECORDS SUMMARY | 2024-07-21 08:19 | XMS_ITS | Data Portability ---
Author Organization [facility] [address] Address [address] [place] [address] Assessment Encounter Date Assessment Date Assessment LastModified [...] Blood in Urine. Thank you for using [facility], please feel free to contact us if you have any questions or concerns. rylee Not available 07/18/2023 09:58:02 Plan of Treatment Reminders Order Date Submit Date Provider Last Modified By Organization Details Last Modified Time Details Appointments None recorded. Lab None recorded. Referral None recorded. Procedures None recorded. Surgeries None recorded. Imaging None recorded. Medication Orders Imodium A-D 2 mg tablet 2023 024 [id number], [address] [place], [address], 09:57:44 ondansetron 4 mg disintegrat ing tablet 2023 024 [facility]/Pharmacy #[id number], [address] [place], [address], 09:57:44 Patient TargetsNo targets recorded. Patient Instructions Encounter Date Encounter Id Patient Instructions Last Modified By Organization Details Last Modified Time 07/18/2023 [id number] diarrhea: care instructions ronchaga Not available 07/18/2023 09:57:42 managing nausea from cancer treatment: care instructions ronchaga Not available 07/18/2023 09:57:42 gastroenteritis: care instructions ronchaga Not available 07/18/2023 09:57:42 Reason for Referral None Reported. Problems Name Problem SNOMED Code Status Onset Date Resolution Date Notes Provider Name and Address Organization Details Recorded Time Gastroenteritis 48270944 Active 2023 KIRA FIELDS NP [address] , [place], [place], [address], [place] - [facility] 09:55:10 Nausea, vomiting and diarrhea 1588118 Active 2023 KIRA FIELDS NP [address] , [place], [address], [place] - [facility] 4 09:55:19 Diarrhea 39052494 Active 2023 KIRA FIELDS NP [address], [place], [address], [place] - [facility] 09:55:41 [...] Updated DateTime 4 177.8 cm 30.8 kg/m2 40760.3 6 g 98 % 98 % 16 [...] SNOMED-CT Code Diagnosis ICD10 Code Diagnosis Note [id number] [address] [facility] [place] [address] 12/21/2021 12:08:55 12/21/2021 13:39:30 [id number] [address] [facility] [place] [address] 03/29/2020 10:58:17 03/29/2020 15:58:49 [id number] [facility] [place] [address] 06/26/2021 16:55:45 06/26/2021 17:53:15 [id number] [address] [facility] [place] [address] 10/22/2019 14:19:12 10/22/2019 15:40:31 [id number] KIRA FIELDS NP [address] [facility] [place] [address] 07/18/2023 09:22:00 07/18/2023 10:02:28 Nausea, vomiting and diarrhea 0358060 R11.2 Gastroenteritis 15293043 K52.9 Diarrhea 01444634 R19.7 Health Concerns Section Related Observation LastModified by Organization Detai ls LastModified Time None Recorded Concern Status LastModified by Organization Details LastModified Time None Recorded Advance Directives Directive None Recorded Payers Encounter Date Sequence Insurance Name Policy Number Policy Leon Covered Member ID Leon Member ID Guarantor Name 07/18/2023 [facility] Emile Cornelius [id number] Emile Cornelius Notes Date Note Type Note [...] FIELDS NP [address] [place], [address], [place] - [facility] 07/18/2023 11:11:04
--- OUTSIDE RECORDS SUMMARY | 2024-07-21 08:19 | XMS_ITS | Encounter Summary ---
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 Date/Time Encounter Type Encounter Description Reason Provider Source Jul 28, 2023 10:00 AM OFF/OP EST JULY X REQ PHY/QHP PRIMARY CARE/MEDICINE ICD-10-CM Z23 Encounter for immunization FARHAN ESTRADA [facility] Encounter Template Text not used by [place] Assessments - Encounter Diagnoses This section includes the primary and secondary diagnoses documented for the Encounter. Date/Time Primary/Secondary Diagnosis Diagnosis Name Provider Source Jul 28, 2023 10:27 AM PRIMARY Encounter for immunization RIVKA ESTRADA YINA Plan of Treatment: Future Appointments (+ 6 months) and Future Tests (+/- 45 days) The Plan of Treatment section includes future care activities for the patient from all [place] treatmentfacilities. This section includes future appointments and future orders which are active, pending or scheduled. Future Appointments This section includes appointments that were scheduled to occur 6 months from the date of the Encounter, up to a maximum of 20 appointments. The data comes from all [place] treatment facilities. Appointment Date/Time Appointment Type Appointme nt Facility Name August 06, 2023 10:15 AM [place] [facility] [place] [facility] August 14, 2023 10:30 AM AM[facility]ULATORY - [facility] [place] August 21, 2023 01:00 PM AMBULATORY - NONE [place] [facility] [place] [facility] Sep 11, 2023 10:00 AM AM[place]ULATORY [place] NONE [place] [facility] [place] [facility] Dec 02, 2023 08:00 AM AMBULATORY - [facility]AB MED[facility] Dec 18, 2023 08:00 AM [facility] Dec 25, 2023 08:00 AM [facility] Jan 08, 2024 08:00 AM AMBULATORY - REHAB [facility] Jan 15, 2024 08:00 [facility] Immunizations: All administered on the encounter date This section contains immunizations associated to the Encounter. Immunization Series Date Issued Administered By Site Reaction Lot Number [id number] Drug Graduating Machine Operator Comment(s) Source HPV9 3 Jul 28, 2023 FARHAN ESTRADA LEFT DELTO ID [id number] [employer] ADMINISTERE D AT [facility] Social History: Smoking Status (Most current) and Tobacco Use (All prior to encounter date) This section includes the most current, and the historical, smoking and tobacco- related health factors from the [place] facility where the Encounter took place. Current Smoking Status This section includes the most current smoking, or tobacco-related health factor, from the [place] facility where the Encounter took place. Date/Time Current Smoking Status Comment Facil ity Mar 18, 2023 03:30 PM [place]ED [place] Tobacco Use History This section includes a history of the smoking, or tobacco-related health factors, that were collected on or before the date of the Encounter. The data comes from the [place] facility where the Encounter took place. Date/Time Smoking Status/Tobacco Use Comment F acility Apr 09, 2022 09:00 AM [place] Jun 30, 2019 11:33 AM [place] Encounter Notes: All associated encounter notes This section contains the clinical notes associated to the Encounter. Date/Time Encounter Note(s) Provider Source Jul 28, 2023 10:10 AM NURSING NOTE: LOCAL TITLE: PRIMARY CARE NURSE NOTE STANDARD TITLE: NURSING NOTE DATE OF NOTE: JUL 28, 2023@10:10 ENTRY DATE: JUL 28, 2023@10:10:45 AUTHOR: RIVKA ESTRADA EXP COSIGNER: URGENCY: STATUS: COMPLETED F: AYESHA NEAL is a 28 yo male presenting to the clinic for a scheduled injection of 3rd HPV per CLEO HOPKINS. Dx: Immunization D/A: Human Papillomavirus (HPV): Administered: HPV9 Date Administered: Jul 28, 2023 10:00 Series: Series 3 Graduating Machine Operator: [employer] Lot: [id number] Exp Date: Apr 18, 2025 [facility]: [id number] Admin Route/Site: INTRAMUSCULAR/LEFT DELTOID Dosage: 0.5mL Vaccine Information Statement(s): HPV (HUMAN PAPILLOMAVIRUS) VACCINE VIS Nov 03, 2020 ([facility]) Order By: Policy Administered By: Rivka Estrada Vaccine Information Sheet (VIS) was given to the patient/caregiver, education regarding adverse reactions was discussed, as well as barriers to learning, if any, were acknowledged. PATIENT EDUCATION - SIDE EFFECTS VACCINATION/INJECTION Advised pt of the following POSSIBLE side effects and to call us if any of these symptoms are severe or do not go away: pain at injection site Advised of SERIOUS side effects and to call us immediately or get emergency medical treatment if you experience: wheezing or difficulty breathing shortness of breath cough chest tightness flushing hives swelling of the face, mouth, and tongue difficulty swallowing fainting or dizziness RTC in 0 weeks for next injection. Upcoming Appointments: 08/06/2023 10:15 COM CARE-ORTHO GEN 08/21/2023 13:00 CWM/NO/VVC/RESP/SLEEP A 04/14/2024 13:00 CWM/SO/PACT 9 No barriers; Patient understands and agrees to current treatment plan. If pt has any questions, concerns, or changes in current health status he/she will call [facility] 5-10 minutes minutes spent in patient care and education CLINICAL REMINDERS COVID-19 Immunization: Refused Moderna Monovalent COVID-19 vaccine Immunization: COVID-19 (MODERNA), MRNA, LNP-S, PF, 50 MCG/0.5 ML (AGES 12+ YEARS) Refusal Reason: PATIENT DECISION Patient refuses all immunization(s) in the COVID-19 group Date Documented: 07/28/23 10:25 Influenza Immunization: The patient declines to receive the recommended dose of seasonal influenza vaccine. Immunization: INFLUENZA, UNSPECIFIED FORMULATION Refusal Reason: PATIENT DECISION Patient refuses all immunization(s) in the FLU group Date Documented: 07/28/23 10:26 /theodore/ JEAN MARIE HEATH,RN-BC REGISTERED NURSE (RN) Signed: 07/28/2023 10:27 RIVKA ESTRADAFIELD
--- OUTSIDE RECORDS SUMMARY | 2024-07-21 08:19 | XMS_ITS | Encounter Summary ---
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 c/o an incident happened on Apr 01, I had an anxiety attack at work. I finished the day but went home and then felt super heavy, sad. The next day I called out. I couldn't sleep the next day. I didn't show up to work the next day. I requested FMLA, I need a break from work. Around the holidays it gets too crazy there. I love the job when its not holiday season. I'm not back to work yet. I've been calling out. I've been having anxiety attacks, they're minor, even get them in my sleep. I get up covered in sweat. Then I'm not sleeping. It's weekly, every 3 days . He likes alpha stim. REVIEW OF SYSTEMS MENTAL HEALTH: SLEEP: see above MOOD: sadness comes after the anxiety, I seclude myself in my room. It lasts about 2 to 3 days PTSD symptoms: nightmares/sweats still occur about twice/week ANXIETY: attacks occur about twice/week SUBSTANCE USE: Alcohol: occasional Illegal/non-prescribed drugs: cannabis gummies twice per week TOBACCO: Non-smoker CHANDRA/HYPOMANIA: None evident PSYCHOTIC FEATURES: None evident Suicidal Thoughts/Intent/plan: I think what if I wasn't here, but not taking my life . Social Status/ Stressors: work not bad, getting anxiety there, its crazy busy CURRENT PSYCH meds: none ADVERSE EFFECTS: none reported MENTAL STATUS EXAMINATION - Appearance and behavior: Appears stated age, appropriately groomed and dressed, pleasant and cooperative - Speech and language: without impairment of rate, rhythm, inflection, volume, or fluency, without latency - Mood: as noted above - Affect: without lability or agitation, tense - Thought Process: Linear, logical; no loosening of associations or FOI - Thought Content: without delusions (paranoia, thought broadcasting, thought withdrawal, thought insertion, ideas of reference) - Perceptions: Denies auditory and visual hallucinations - IMPULSES/HARM: - Self-harm: denied - Harm to others: denied - Cognition: No noted impairment - Insight: no impairment evident - Judgment: no impairment evident NARRATIVE SUMMARY OF CURRENT CONDITION AND OVERALL PROGRESS TOWARD TREATMENT GOALS: good response to Lexapro and trazodone in the past. He agrees to resume these meds, though reluctantly. i. Severity of Illness: ()none ( )mild (x )moderately ill (x)severely ill ()very severely ill ii. Global Improvement: ()very much ( )much ( )min ()none ( )min worse (x )much worse ()very much worse iii. RISK ASSESSEMENT: currently (x) no evidence of acute risk, no increase in risk factors () elevated based on: () acute risk noted but agrees to Safety Plan: () acute risk noted, emergency plan implemented INTERVENTION: -THERAPY: at least 16 minutes spend in individual counseling discussing psychological issues, coping strategies, current stressors -SOMATIC: reviewed and discussed medication options: risks, side effects alternatives understood and accepted; answered patient questions PLAN OF CARE/ RECOMMENDATIONS: 1. Recommended and discussed the following medications changes: as noted above 2. Tests or specialist referrals recommended, or old records desired, if any: none 3. Medical Necessity/ Psychiatric treatment goals for future visits: ( x) Sustain improvement ( x) Gain improvement toward remission ( x) Prevent decline in functioning ( x) Prevent hospitalization 4. Considered referral to psychotherapy program for any counseling needs: n/a 5. Considered referral to inpatient/IOP care: n/a 6. Considered referral nutrition program for any lifestyle/dietary needs: n/a 7. Follow-up plans; patient is scheduled for a follow-up appointment with myself in: 4 weeks, sooner if needed Additional Follow-Up instructions: 1. Reinforced: If urgent treatment is needed, call [phone] or go to the nearest Emergency Room 2. To schedule or change an appointment, inquire about medication refills, etc: call office number during normal office hours Diagnoses: Chronic post-traumatic stress disorder following combat ([facility] [id number]) - Post-traumatic stress disorder, chronic (ICD-10-CM F43.12) (Primary) Chronic post-traumatic stress disorder following combat ([facility] [id number]) - activity (ICD-10-CM Y99.1) Panic disorder (SCT 353335626) - Panic disorder [episodic paroxysmal anxiety] (ICD-10-CM F41.0) /theodore/ MINDY HAWTHORNE M.D. Signed: 04/26/2024 11:50 MINDY HAWTHORNE [place]
--- OUTSIDE RECORDS SUMMARY | 2024-07-21 08:19 | XMS_ITS | Encounter Summary ---
Author Name [facility] Organization [facility] Address [address] [place] [id number] Care Team Providers Care Pension Manager Name Role Phone MAK TARIQ Primary Care Provider Unavailab le Selected Encounter This section includes the information on record at [facility] for the Encounter. Date/Time Encounter Type Encounter Description Reason Pro vider Source Jul 16, 2024 01:09 PM Outpatient Encounter ADMIN PAT ACTIVTIES (MASNONCT) IHE Encounter Template Text not used by [facility] Plan of Treatment: Future Appointments (+ 6 months) and Future Tests (+/- 45 days) The Plan of Treatment section includes future care activities for the patient from all [facility] treatmentfacilities. This section includes future appointments and future orders which are active, pending or scheduled. Future Appointments This section includes appointments that were scheduled to occur 6 months from the date of the Encounter, up to a maximum of 20 appointments. The data comes from all [facility] treatment facilities. Appointment Date/Time Appointment Type Appointme nt Facility Name Jul 22, 2024 12:20 PM AMBULATORY - MEDICINE [facility] Active, Pending, and Scheduled Orders This section includes a listing of several types of active, pending, and scheduled orders, including clinic medications orders, diagnostic test orders, procedure orders and consult orders; where the start date of the order is 45 days before the date of the Encounter or 45 days after the date of theEncounter. The data comes from all [facility] treatment facilities. Test Date/Time Test Type Test Details Facility Name Jun 22, 2024 12:00 AM Laboratory - Chemistry Order OCCULT BLOOD FIT X1 SCREEN(IN-HOUSE) STOOL FECES [facility] Jun 22, 2024 09:56 AM Consult Order [facility]-INFERTILITY (1332) [employer] Worker[facility] Choice [facility] Jun 22, 2024 10:00 AM Consult Order [facility]-COLONOSCOPY DIAGNOSTIC WITH EGD Cons [employer]ery Worker's Choice [facility] Jun 22, 2024 11:46 AM Consult Order BHIP PSYCHIATRIC MEDICATION/SOPC OUTPT Cons [employer]ery Worker's Choice [facility] Jul 19, 2024 12:00 AM Laboratory - Chemistry Order SEMEN ANALYSIS,FERTILITY (FHI) SEMINAL FLUID SP [facility] Lab Results: +/- 30 days of the encounter This section includes the Chemistry and Hematology Lab Results on record with [facility] for the patient. Radiology Reports and Pathology Reports are provided separately, in subsequent sections. Lab Results This section contains the Chemistry/Hematology Results that were resulted 30 days before or 30 daysafter the date of the Encounter. Date/Time Source Result Type Result - Unit Interpretation Reference Range Specimen Type Comment Jun 24, 2024 12:44 PM [facility] CBC AND DIFF (AUTO) BLOOD Specimen Ty pe: BLOOD No comment entered. Ordering Provider: MAK TARIQ Report Released Date/Time: Jun 22, 2024 09:56 AM Reporting Lab: [facility] [address] [facility] [address] Performing Lab: [address] [address] WBC 6.72 10*3/uL 4.50-11.00 RBC 4.93 10*6/uL 4.23-5.66 HGB 14.9 g/dL 12.8-17 HCT 43.1 39.2-50.4 MCV 87.4 fL 82-99 MCHC 34.6 g/dL 30.8-35.1 PLT 286 10*3/uL 140-360 MPV 9.8 fL 9.2-12.4 RDW-CV 11.7 L 12.0-16.0 MONO, ABS 0.44 10*3/uL 0.30-1.10 MCH 30.2 pg 26.2-32.6 NEUT % 50.6 43.7-75.8 LYMPH % 42.1 14.0-42.3 MONO % 6.5 5.1-13.7 EOS % 0.4 0.4-6.8 BASO % 0.3 0.1-2.0 NEUT, ABS 3.39 10*3/uL 2.20-7.60 LYMPH, ABS 2.83 10*3/uL 1.00-3.20 EOS, ABS 0.03 10*3/uL 0.03-0.44 BASO, ABS 0.02 10*3/uL 0.01-0.13 IMMATURE GRAN % 0.1 0.0-0.7 IMMATURE GRAN, ABS 0.01 10*3/uL 0.00-0.0 6 NRBC % 0.0 0.0-0.0 NRBC, ABS 0.00 10*3/uL 0.00-0.00 Social History: Smoking Status (Most current) and Tobacco Use (All prior to encounter date) This section includes the most current, and the historical, smoking and tobacco- related health factors from the [facility] facility where the Encounter took place. Current Smoking Status This section includes the most current smoking, or tobacco-related health factor, from the [facility] facility where the Encounter took place. Date/Time Current Smoking Status Comment Akanksha willingham Apr 05, 2021 09:05 AM VA-TOBACCO FORMER USER [facility] Tobacco Use History This section includes a history of the smoking, or tobacco-related health factors, that were collected on or before the date of the Encounter. The data comes from the [facility] facility where the Encounter took place. Date/Time Smoking Status/Tobacco Use Comment F alex Apr 05, 2021 09:05 AM AR-TOBACCO QUIT 1 TO < 5 YRS [facility] Encounter Notes: All associated encounter notes This section contains the clinical notes associated to the Encounter. Date/Time Encounter Note(s) Provider Source Jul 20, 2024 08:59 AM ADDENDUM: LOCAL TITLE: Addendum STANDARD TITLE: ADDENDUM DATE OF NOTE: JUL 20, 2024@08:59:32 ENTRY DATE: JUL 20, 2024@08:59:32 AUTHOR: TONY GUY EXP COSIGNER: URGENCY: STATUS: COMPLETED Md Pact team. Unfortunately the semen analysis kit has to be picked up because lab explains a few things to them. So he will have to get at [facility] but it is ordered thanks /theodore/ SUMI RIVERA Nurse Practitioner Signed: 07/20/2024 09:00 Receipt Acknowledged By: 07/20/2024 09:43 /briseyda Lopez RN Registered Nurse (RN) 07/20/2024 10:20 /theodore/ JERROD POOLE LPN LPN === --- Original Document --- 07/16/24 CCC: SCHEDULING ADMINISTRATION: Caller Verification Call Back Number: [phone] Emergency Contact: SYLVAIN NEAL Emergency Contact Caller/Recipient Relation to Patient: Self Caller Name: AYESHA NEAL Administrative Administrative Note Reason: Other Administrative Note Comments: [place] states prior to making appointment w/ urology for fertility, states he needs an additional sperm count test, please give him a call [phone] IMPORTANT: This note was created by [facility] staff. Please do not alert the staff member by adding them as a signer for future communications. Alerts are not monitored by this user. /theodore/ GIULIANO WILSON 1 [facility] AMSA Signed: 07/16/2024 13:09 Receipt Acknowledged By: 07/16/2024 14:44 /briseyda POOLE LPN LPN 07/19/2024 14:37 /briseyda Lopez RN Registered Nurse (RN) for SUSY ESTRADA 07/16/2024 ADDENDUM STATUS: COMPLETED PCP--Can this be done at the [facility]? or should a [facility] order be entered? PLease advise. /briseyda Lopez RN Registered Nurse (RN) Signed: 07/16/2024 13:18 07/16/2024 ADDENDUM STATUS: COMPLETED Spoke with , states that he had done this test a few months back but he needs 2 before seeing the fertility specialist. Please enter order if appropriate. [place] would like kit mailed to his home. /briseyda Lopez, RN Registered Nurse (RN) Signed: 07/16/2024 14:10 Receipt Acknowledged By: 07/20/2024 08:59 /theodore/ SUMI RIVERA Nurse Practitioner for MAK TARIQ 07/16/2024 ADDENDUM STATUS: COMPLETED [place] called [facility] and stated that PVU scheduling is asking for a second semen analysis prior to appt with Dr. Laguerre. This tesitng is readily available at AR and not done by [facility] urology, they refer patients out for it. I let him know that a message was already sent to his PCP. Please coordinate semen analysis at [facility] if possible. [place] is asking if the kit can be mailed to his home so he doesn't have to travel to [place]. Please let him know if this is an option. Thank you /theodore/ ARIS ALVARADO [facility] BSN RN JULIETTE Signed: 07/16/2024 15:50 Receipt Acknowledged By: 07/16/2024 16:01 /theodore/ Emmanuel Lopez RN Registered Nurse (RN) for SUSY ESTRADA 07/19/2024 ADDENDUM STATUS: COMPLETED Spoke with , advised test kit can't be mailed as it has a code he needs to scan in front of the laboratory inspector, did advise he can spanish moss picker in [place], verbalized an understanding. /theodore/ Emmanuel Lopez RN Registered Nurse (RN) Signed: 07/19/2024 14:37 TONY GUY [facility] [place] [facility] Jul 16, 2024 03:47 PM ADDENDUM: LOCAL TITLE: Addendum STANDARD TITLE: ADDENDUM DATE OF NOTE: JUL 16, 2024@15:47:02 ENTRY DATE: JUL 16, 2024@15:47:03 AUTHOR: ARIS ALVARADO COSIGNER: URGENCY: STATUS: COMPLETED [place] called [facility] and stated that PVU scheduling is asking for a second semen analysis prior to appt with Dr. Laguerre. This tesitng is readily available at [facility] and [facility]. I let him know that a message was already sent to his PCP. Please coordinate semen analysis at [facility] if possible. [place] is asking if the kit can be mailed to his home so he doesn't have to travel to [place]. Please let him know if this is an option. Thank you /theodore/ ARIS ALVARADO [facility] Care JEAN MARIE SEGOVIA Signed: 07/16/2024 15:50 Receipt Acknowledged By: 07/16/2024 16:01 /es/ Emmanuel Lopez RN Registered Nurse (RN) for SUSY ESTRADA === --- Original Document --- 07/16/24 CCC: SCHEDULING ADMINISTRATION: Caller Verification Call Back Number: [phone] Emergency Contact: SYLVAIN VAL Emergency Contact Caller/Recipient Relation to Patient: Self Caller Name: AYESHA NEAL Administrative Administrative Note Reason: Other Administrative Note Comments: states prior to making appointment w/ urology for fertility, states he needs an additional sperm count test, please give him a call [phone] IMPORTANT: This note was created by [facility] staff. Please do not alert the staff member by adding them as a signer for future communications. Alerts are not monitored by this user. /es/ GIULIANO WILSON 1 [facility] A[facility] Signed: 07/16/2024 13:09 Receipt Acknowledged By: 07/16/2024 14:44 /es/ JERROD POOLE LPN LPN * AWAITING SIGNATURE * SUSY ESTRADA 07/16/2024 ADDENDUM STATUS: COMPLETED PCP--Can this be done at the [facility]? or should a [facility] Lab order be entered? PLease advise. /theodore/ Emmanuel Lopez RN Registered Nurse (RN) Signed: 07/16/2024 13:18 07/16/2024 ADDENDUM STATUS: COMPLETED Spoke with , states that he had done this test a few months back but he needs 2 before seeing the fertility specialist. Please enter order if appropriate. would like kit mailed to his home. /theodore/ Emmanuel Lopez RN Registered Nurse (RN) Signed: 07/16/2024 14:10 Receipt Acknowledged By: * AWAITING SIGNATURE * MAK TARIQ SOBIAOMAR,ARIS MERCADO [facility] [place] [facility] Jul 16, 2024 02:05 PM ADDENDUM: LOCAL TITLE: Addendum STANDARD TITLE: ADDENDUM DATE OF NOTE: JUL 16, 2024@14:05:26 ENTRY DATE: JUL 16, 2024@14:05:27 AUTHOR: EMMANUEL LOPEZ EXP COSIGNER: URGENCY: STATUS: COMPLETED Spoke with , states that he had done this test a few months back but he needs 2 before seeing the fertility specialist. Please enter order if appropriate. would like kit mailed to his home. /theodore/ Emmanuel Lopez RN Registered Nurse (RN) Signed: 07/16/2024 14:10 Receipt Acknowledged By: 07/20/2024 08:59 /theodore/ SUMI RIVERA Nurse Practitioner for MAK TARIQ === --- Original Document --- 07/16/24 CCC: SCHEDULING ADMINISTRATION: Caller Verification Call Back Number: [phone] Emergency Contact: SYLVAIN NEAL Emergency Contact Caller/Recipient Relation to Patient: Self Caller Name: AYESHA VAL Administrative Administrative Note Reason: Other Administrative Note Comments: [place] states prior to making appointment w/ urology for fertility, states he needs an additional sperm count test, please give him a call [phone] IMPORTANT: This note was created by [facility] Contact [facility] staff. Please do not alert the staff member by adding them as a signer for future communications. Alerts are not monitored by this user. /es/ GIULIANO GAVIRIAUCHER VISN 1 CCC AMSA Signed: 07/16/2024 13:09 Receipt Acknowledged By: 07/16/2024 14:44 /es/ JERROD POOLE LPN LPN 07/19/2024 14:37 /es/ Emmanuel Lopez RN Registered Nurse (RN) for SUSY ESTRADA 07/16/2024 ADDENDUM STATUS: COMPLETED PCP--Can this be done at the [facility]? or should a [facility] Lab order be entered? PLease advise. /theodore/ Emmanuel Lopez RN Registered Nurse (RN) Signed: 07/16/2024 13:18 07/16/2024 ADDENDUM STATUS: COMPLETED called [facility] and stated that PVU scheduling is asking for a second semen analysis prior to appt with Dr. Laguerre. This tesitng is readily available at [facility] and not done by [facility] urology, they refer patients out for it. I let him know that a message was already sent to his PCP. Please coordinate semen analysis at [facility] if possible. is asking if the kit can be mailed to his home so he doesn't have to travel to [place]. Please let him know if this is an option. Thank you /theodore/ ARIS ALVARADO [facility] BSN ELIER SEGOVIA Signed: 07/16/2024 15:50 Receipt Acknowledged By: 07/16/2024 16:01 /theodore/ Emmanuel Lopez RN Registered Nurse (RN) for SUSY ESTRADA 07/19/2024 ADDENDUM STATUS: COMPLETED Spoke with , advised test kit can't be mailed as it has a code he needs to scan in front of the laboratory inspector, did advise he can spanish moss picker in [place], verbalized an understanding. /theodore/ Emmanuel Lopez RN Registered Nurse (RN) Signed: 07/19/2024 14:37 EMMANUEL LOPEZ [facility] [place] [facility] Jul 16, 2024 01:09 PM ADMINISTRATIVE NOTE: LOCAL TITLE: [facility]: SCHEDULING ADMINISTRATION STANDARD TITLE: ADMINISTRATIVE NOTE DATE OF NOTE: JUL 16, 2024@13:09:57 ENTRY DATE: JUL 16, 2024@13:09:58 AUTHOR: GIULIANO MAGAÑA EXP COSIGNER: URGENCY: STATUS: COMPLETED CCC: SCHEDULING ADMINISTRATION Has ADDENDA Caller Verification Call Back Number: [phone] Emergency Contact: SYLVAIN NEAL Emergency Contact Caller/Recipient Relation to Patient: Self Caller Name: AYESHA NEAL Administrative Administrative Note Reason: Other Administrative Note Comments: states prior to making appointment w/ urology for fertility, states he needs an additional sperm count test, please give him a call [phone] IMPORTANT: This note was created by [facility] Contact [facility] staff. Please do not alert the staff member by adding them as a signer for future communications. Alerts are not monitored by this user. /theodore/ GIULIANO MAGAÑA VISN 1 [facility] AMSA Signed: 07/16/2024 13:09 Receipt Acknowledged By: 07/16/2024 14:44 /es/ JERROD POOLE LPN LPN 07/19/2024 14:37 /es/ Emmanuel Lopez RN Registered Nurse (RN) for SUSY ESTRADA 07/16/2024 ADDENDUM STATUS: COMPLETED PCP--Can this be done at the [facility]? or should a [facility] Lab order be entered? PLease advise. /thedoore/ Emmanuel Lopez RN Registered Nurse (RN) Signed: 07/16/2024 13:18 07/16/2024 ADDENDUM STATUS: COMPLETED Spoke with , states that he had done this test a few months back but he needs 2 before seeing the fertility specialist. Please enter order if appropriate. would like kit mailed to his home. /theodore/ Emmanuel Lopez RN Registered Nurse (RN) Signed: 07/16/2024 14:10 Receipt Acknowledged By: 07/20/2024 08:59 /es/ SUMI RIVERA Nurse Practitioner for MAK TRUNGANCELMO TARIQ 07/16/2024 ADDENDUM STATUS: COMPLETED [place] called [facility] and stated that PVU scheduling is asking for a second semen analysis prior to appt with Dr. Laguerre. This tesitng is readily available at [facility] and not done by [facility] urology, they refer patients out for it. I let him know that a message was already sent to his PCP. Please coordinate semen analysis at [facility] if possible. is asking if the kit can be mailed to his home so he doesn't have to travel to [place]. Please let him know if this is an option. Thank you /theodore/ ARIS ALVARADO [facility] BSN RN JULIETTE Signed: 07/16/2024 15:50 Receipt Acknowledged By: 07/16/2024 16:01 /theodore/ Emmanuel Lopez RN Registered Nurse (RN) for SUSY ESTRADA 07/19/2024 ADDENDUM STATUS: COMPLETED Spoke with , advised test kit can't be mailed as it has a code he needs to scan in front of the laboratory inspector, did advise he can spanish moss picker in [place], verbalized an understanding. /theodore/ Emmanuel Lopez RN Registered Nurse (RN) Signed: 07/19/2024 14:37 07/20/2024 ADDENDUM STATUS: COMPLETED Md Pact team. Unfortunately the semen analysis kit has to be picked up because lab explains a few things to them. So he will have to get at [facility] but it is ordered thanks /theodore/ SUMI RIVERA Nurse Practitioner Signed: 07/20/2024 09:00 Receipt Acknowledged By: * AWAITING SIGNATURE * EMMANUEL LOPEZ * AWAITING SIGNATURE * [facility]OD [facility]LE [facility]
--- OUTSIDE RECORDS SUMMARY | 2024-07-21 08:19 | XMS_ITS | Encounter Summary ---
Author Name [facility] [place] Organization [place] Address [address] [place] [id number] Care Team Providers Care Tipple Engineer Name Role Phone MAK TARIQ Primary Care Provider Unavail Selected Encounter This section includes the information on record at [place] for the Encounter. Date/Time Encounter Type Encounter Description Reason Provider Source August 21, 2023 01:00 PM POS AIRWAY PRESSURE FILTER SLEEP MEDICINE ICD-10-CM G47.33 Obstructive sleep apnea (adult) (pediatric) VERÓNICA MAGANA [facility] Encounter Template Text not used by CT Assessments - Encounter Diagnoses This section includes the primary and secondary diagnoses documented for the Encounter. Date/Time Primary/Secondary Diagnosis Diagnosis Name Provider Source August 21, 2023 01:15 PM PRIMARY Obstructive sleep apnea (adult) (pediatric) VERÓNICA MAGANA [facility] Plan of Treatment: Future Appointments (+ 6 months) and Future Tests (+/- 45 days) The Plan of Treatment section includes future care activities for the patient from all [place] treatmentfacilities. This section includes future appointments and future orders which are active, pending or scheduled. Future Appointments This section includes appointments that were scheduled to occur 6 months from the date of the Encounter, up to a maximum of 20 appointments. The data comes from all [place] treatment facilities. Appointment Date/Time Appointment Type Appointme nt Facility Name Sep 11, 2023 10:00 AM AMBULATORY - NONE [facility] Dec 02, 2023 08:00 AM AMBULATORY - REHAB MEDICIN [facility] Dec 18, 2023 08:00 AM AMBULATORY - REHAB MEDICIN [facility] Dec 25, 2023 08:00 AM AMBULATORY - REHAB [facility] Jan 08, 2024 08:00 AM AMBULATORY REHAB [facility] Jan 15, 2024 08:00 AM [facility] Social History: Smoking Status (Most current) and Tobacco Use (All prior to encounter date) This section includes the most current, and the historical, smoking and tobacco- related health factors from the [place] facility where the Encounter took place. Current Smoking Status This section includes the most current smoking, or tobacco-related health factor, from the [place] facility where the Encounter took place. Date/Time Current Smoking Status Comment Facil ity Apr 05, 2021 09:[address]-TOBACCO FORMER USER [facility] Tobacco Use History This section includes a history of the smoking, or tobacco-related health factors, that were collected on or before the date of the Encounter. The data comes from the [place] facility where the Encounter took place. Date/Time Smoking Status/Tobacco Use Comment F acility Apr 05, 2021 09:[address]-TOBACCO QUIT 1 TO < 5 YRS [facility] Encounter Notes: All associated encounter notes This section contains the clinical notes associated to the Encounter. Date/Time Encounter Note(s) Provider Source August 21, 2023 12:50 PM RESPIRATORY THERAPY CONSULT: LOCAL TITLE: CONSULT REPORT/RESPIRATORY THERAPY STANDARD TITLE: RESPIRATORY THERAPY CONSULT DATE OF NOTE: AUGUST 21, 2023@12:50 ENTRY DATE: AUGUST 21, 2023@12:50:10 AUTHOR: VERÓNICA MAGANA EXP COSIGNER: URGENCY: STATUS: COMPLETED VVC Clinician Resources Only: E911 (Emergency Call Relay Center): [phone] [facility] Crisis Line - ([phone]) press #1. CORY Suicide Coordinator [phone], Ext. [phone]; Back-up Ext. [phone] Water Well Driller of the Day(AOD), Vin RAY [phone], Ext. [phone] Introduction: Visit is being conducted by [place] [facility]. identified with 2 identifiers: [X] Full Name [X] Date of [ ] Address [ ] VA ID Card *We shouldn't be asking for SSN over a video visit so want to offer only acceptable identifiers for video visits.* Emergency Plan: [place] confirmed and/or provided the following information in case of emergency or technology failure. PATIENT PHONE - PHONE NUMBER [CELLULAR] - Is patient phone number correct, if not, enter below: [place]'s phone number: AYESHA CORNELIUS [address] [place], [place], [address] [place]'s present location and address for appointment: [address] [facility] [id number] [place]'s emergency contact name and phone number: Sylvain Cornelius [phone] [place] reported that location is private and safe: Yes Informed Consent: informed of the risks and benefits of Telehealth video care. has the right to refuse video services. If refuses video visit, a [id number] visit will be scheduled. verbalized consent for this video visit: Yes [place] provided consent for any other persons present for visit: No If yes, who and relationship to patient: Secure visit: Visit was locked for security and privacy: Yes [place] diagnosed with sleep apnea had VVC visit to discuss recommendations from sleep specialist. [place] was offered and is agreeable to VVC visit. [place] had a [facility] HST on 06/03/2023 and has an HST-ZO 24, Supine 43 with recommendations from [facility] sleep specialist for APAP 5-20 cmH2O. We discussed sleep study findings and the dangers of untreated sleep apnea. [place] is agreeable to begin therapy. A ResMed Airsense 11 set to APAP 5-20 cmH2O with filters, F30-i full face mask will be shipped to [facility]. [place] gives consent for appointment. Equipment properly set and sized during this phone call will be sent to 's address, phone and email confirmed Time: MSA to call and schedule follow-up [place] will need to purchase distilled water will be sent e-mail link for VVC visit will receive an invitation to [place] /theodore/ VERÓNICA MAGANA RESPIRATORY THERAPIST Signed: 08/21/2023 13:26 Receipt Acknowledged By: 08/29/2023 14:34 /theodore/ VERÓNICA BROWN [place] [facility]
--- OUTSIDE RECORDS SUMMARY | 2024-07-21 08:19 | XMS_ITS ---
Author Name [facility] [place] Organization [place] Address [address] [place] [address] Care Team Providers Care Oil Rig Driller Name Role Phone MAK TARIQ [facility] Selected Encounter This section includes the information on record at [place] for the Encounter. Date/Time Encounter Type Encounter Description Reason Provider Source Sep 11, 2023 10:00 AM REPL ORAL CUSHION COMBO MASK SLEEP MEDICINE ICD-10-CM G47.33 Obstructive sleep apnea (adult) (pediatric) VERÓNICA MAGANA [facility] Encounter Template Text not used by [place] Assessments - Encounter Diagnoses This section includes the primary and secondary diagnoses documented for the Encounter. Date/Time Primary/Secondary Diagnosis Diagnosis Name Provider Source Sep 11, 2023 10:23 AM PRIMARY Obstructive sleep apnea (adult) (pediatric) VERÓNICA MAGANA [facility] Plan of Treatment: Future Appointments (+ 6 months) and Future Tests (+/- 45 days) The Plan of Treatment section includes future care activities for the patient from all [place] treatmentfacilities. This section includes future appointments and future orders which are active, pending or scheduled. Future Appointments This section includes appointments that were scheduled to occur 6 months from the date of the Encounter, up to a maximum of 20 appointments. The data comes from all [place] treatment facilities. Appointment Date/Time Appointment Type Appointme nt Facility Name Dec 02, 2023 08:00 AM AMBULATORY - REHAB MEDICIN [facility] Dec 18, 2023 08:00 AM AMBULATORY - REHAB MEDICIN [facility] Dec 25, 2023 08:00 AM AMBULATORY - REHAB MEDICIN [facility] Jan 08, 2024 08:00 AM AMBULATORY - REHAB [facility] Jan 15, 2024 08:00 AM AMBULATORY - REHAB [facility] Social History: Smoking Status (Most current) and Tobacco Use (All prior to encounter date) This section includes the most current, and the historical, smoking and tobacco- related health factors from the [place] facility where the Encounter took place. Current Smoking Status This section includes the most current smoking, or tobacco-related health factor, from the [place] facility where the Encounter took place. Date/Time Current Smoking Status Comment Facil ity Apr 05, 2021 09:05 AM [place]-TOBACCO FORMER USER [facility] Tobacco Use History This section includes a history of the smoking, or tobacco-related health factors, that were collected on or before the date of the Encounter. The data comes from the [place] facility where the Encounter took place. Date/Time Smoking Status/Tobacco Use Comment F acility Apr 05, 2021 09:05 AM [place]-TOBACCO QUIT 1 TO < 5 YRS [facility] Encounter Notes: All associated encounter notes This section contains the clinical notes associated to the Encounter. Date/Time Encounter Note(s) Provider Source Sep 11, 2023 09:56 AM RESPIRATORY THERAP Y NOTE: LOCAL TITLE: RESPIRATORY THERAPY NOTE(BLANK) STANDARD TITLE: RESPIRATORY THERAPY NOTE DATE OF NOTE: SEP 11, 2023@09:56 ENTRY DATE: SEP 11, 2023@09:56:30 AUTHOR: VERÓNICA MAGANA COSIGNER: URGENCY: STATUS: COMPLETED VVC Clinician Resources Only: E911 (Emergency Call Relay Center): [phone] [facility] Crisis Line - ([phone]) press #1. C[place] Suicide Coordinator [phone], Ext. [phone]; Back-up Ext. [phone] Pantry Goods Worker of the Day(AOD), Vin RAY [phone], Ext. [phone] Introduction: Visit is being conducted by [place] [employer] [facility]. identified with 2 identifiers: [X] Full Name [X] Date of [ ] Address [ ] VA ID Card *We shouldn't be asking for SSN over a video visit so want to offer only acceptable identifiers for video visits.* Emergency Plan: [place] confirmed and/or provided the following information in case of emergency or technology failure. PATIENT PHONE - PHONE NUMBER [CELLULAR] - Is patient phone number correct, if not, enter below: [place]'s phone number: AYESHA CORNELIUS [address] [place], [place], [address] 's present location and address for appointment: [address] [facility] [id number] [place]'s emergency contact name and phone number: Sylvain Cornelius [phone] [place] reported that location is private and safe: Yes Informed Consent: [place] informed of the risks and benefits of Telehealth video care. has the right to refuse video services. If refuses video visit, a [id number] visit will be scheduled. [place] verbalized consent for this video visit: Yes provided consent for any other persons present for visit: No If yes, who and relationship to patient: Secure visit: Visit was locked for security and privacy: Yes unable to connect this was conducted by phone diagnosed with sleep apnea had [facility] visit after equipment was shipped to . [place] received Airsense 11 set to APAP 5-20 cmH2O with F30-i mask small cushion and supplies. additional cushions will be ordered. We reviewed operation of device, My options and sleep report menu and care and cleaning. Jax has been using the Ibrahima and feels it answers all his questions. He received written handout on care and cleaning, schedule for replacement supplies, clinic contact information and operating manual. Jax was urged to reach out to the clinic for any issues or problems. We reviewed ways to acclimate to CPAP. was reminded that consistent use > 4 hours a night yield the best benefit. He was also cautioned regarding the dangers of untreated apnea. He attempted use see AirView Report following note. He will be followed up in 2& 4 weeks. /theodore/ VERÓNICA MAGANA RESPIRATORY THERAPIST Signed: 09/11/2023 10:23 VERÓNICA MAGANA [place] [facility]
--- OUTSIDE RECORDS SUMMARY | 2024-07-21 08:19 | XMS_ITS | Encounter Summary ---
Author Name [facility] [place] Organization [place] Address [address] [place] [address] Care Team Providers Care Restaurant Bartender Name Role Phone MAK TARIQ Primary Care Provider [facility] Encounter This section includes the information on record at [place] for the Encounter. Date/Time Encounter Type Encounter Description Reason Provider Source Dec 25, 2023 08:00 AM THERAPEUTIC EXERCISES PHYSICAL THERAPY ICD-10-CM M25.561 Pain in right knee CHOLO KELLEY Encounter Template Text not used by [place] Assessments - Encounter Diagnoses This section includes the primary and secondary diagnoses documented for the Encounter. Date/Time Primary/Secondary Diagnosis Diagnosis Name Provider Source Dec 25, 2023 08:38 AM PRIMARY Pain in right knee DANIELA KELLEY Plan of Treatment: Future Appointments (+ 6 months) and Future Tests (+/- 45 days) The Plan of Treatment section includes future care activities for the patient from all [place] treatmentfacilities. This section includes future appointments and future orders which are active, pending or scheduled. Future Appointments This section includes appointments that were scheduled to occur 6 months from the date of the Encounter, up to a maximum of 20 appointments. The data comes from all [place] treatment facilities. Appointment Date/Time Appointment Type Appointme nt Facility Name Jan 08, 2024 08:00 AM AMBULATORY - REHAB [facility]ICIN [facility] Jan 15, 2024 08:00 AM AMBULATORY - REHAB MEDICIN [facility] Apr 06, 2024 11:30 AM AMBULATORY - [place]AT[place] [facility] [place] [facility] Apr 14, 2024 01:00 PM AMBULATORY - MEDICINE [facility] Apr 22, 2024 10:30 AM AMBULATORY - PSYCHIATRY [facility] Apr 26, 2024 11:30 AM AMBUL[place]ORY [place] [facility] [place] [facility] Apr 29, 2024 08:00 AM AMBULATORY - [facility]IC[facility] [place] [facility] May 27, 2024 11:30 AM AMBULATORY [place]RY [place] [facility] [place] [facility] Jun 02, 2024 10:15 AM AMBULATORY - MEDICINE [facility] [place] [facility] Jun 22, 2024 11:30 AM [facility] Social History: Smoking Status (Most current) and Tobacco Use (All prior to encounter date) This section includes the most current, and the historical, smoking and tobacco- related health factors from the [place] facility where the Encounter took place. Current Smoking Status This section includes the most current smoking, or tobacco-related health factor, from the [place] facility where the Encounter took place. Date/Time Current Smoking Status Comment Facil ity Mar 18, 2023 03:30 PM [place]-TOBACCO NEVER USED [facility] Tobacco Use History This section includes a history of the smoking, or tobacco-related health factors, that were collected on or before the date of the Encounter. The data comes from the [place] facility where the Encounter took place. Date/Time Smoking Status/Tobacco Use Comment F acility Apr 09, 2022 09:00 AM [place]-TOBACCO NEVER USED [facility] Jun 30, 2019 11:33 AM [place]-TOBACCO NEVER USED [facility] Encounter Notes: All associated encounter notes This section contains the clinical notes associated to the Encounter. Date/Time Encounter Note(s) Provider Source Dec 25, 2023 08:26 AM PHYSICAL THERAPY N OTE: LOCAL TITLE: PHYSICAL THERAPY STANDARD TITLE: PHYSICAL THERAPY NOTE DATE OF NOTE: DEC 25, 2023@08:26 ENTRY DATE: DEC 25, 2023@08:26:44 AUTHOR: DANIELA KELLEY EXP COSIGNER: URGENCY: STATUS: COMPLETED Initial Evaluation date: 12/02/23 Treatment #: 2 Treatment time: 30 mins Diagnosis: Pain in right Knee (ICD-10-CM M25.561) (Primary) Provider: Lorin SUBJECTIVE: States that he's feeling about the same, had some mm soreness for 2 days after last appt, only did his HEP a couple of times since previous appt. OBJECTIVE: THERAPEUTIC EXERCISE: MINUTES: 30 mins Nu-step 10 mins L5 HS S bridging in supine bridging with LE on tball bridging with 90/90 on tball monster walk with blktband side stepping with blktband TKE with gtband standing hip abd at pbars standing hip flexion standing fire hydrants MANUAL THERAPY: MINUTES: GAIT TRAINING: MINUTES: NEUROMUSCULAR EDUCATION: MINUTES: OTHER: MINUTES: MODALITIES: MINUTES: [] Contraindication screen completed prior to modality [] Skin intact pre/post SELF CARE/EDUCATION: MINUTES: Access Code: [email or web address] URL: [email or web address] Date: 12/25/2023 Prepared by: [facility] Exercises - Beginner Bridge - 1 x daily - 7 x weekly - 3 sets - 10 reps - Supine Bridge with Resistance Band - 1 x daily - 7 x weekly - 3 sets - 10 reps - Bridge with Arms at Sides and Feet on Qatari Ball - 1 x daily - 7 x weekly - 3 sets - 10 reps - Supine Bridge with Heels on Qatari Ball and Knees Bent - 1 x daily - 7 x weekly - 3 sets - 10 reps - Clamshell with Resistance - 1 x daily - 7 x weekly - 3 sets - 10 reps - Sidelying Diagonal Hip Abduction - 1 x daily - 7 x weekly - 3 sets - 10 reps - Straight Leg Raise - 1 x daily - 7 x weekly - 3 sets - 10 reps - Standing Terminal Knee Extension with Resistance - 1 x daily - 7 x weekly - 3 sets - 10 reps - Side Stepping with Resistance at Feet - 1 x daily - 7 x weekly - 3 sets - 10 reps - Forward Monster Walks - 1 x daily - 7 x weekly - 3 sets - 10 reps - Standing Hip Abduction with Unilateral Counter Support - 1 x daily - 7 x weekly - 3 sets - 10 reps - Standing Marching - 1 x daily - 7 x weekly - 3 sets - 10 reps - Standing Hip Abduction with Bent Knee - 1 x daily - 7 x weekly - 3 sets - 10 reps Patient education was provided for all aspects of care during this clinical encounter. ASSESSMENT: Tolerated session well, feeling the mm weakness in the glutes after session, encouraged to perform his HEP regularly PLAN: Low impact aerobic exercise. Open chain hip and core stability exercises, especially focusing on the gluteal and hip abductor muscles. Quad and hamstring strengthening. Balance and proprioception training. Weight bearing and functional movement patterns as tolerated. Progress to dynamic single leg activities when capable and pain is managed. Modalities as needed. 1 time per week, 6 appointments scheduled. /theodore/ RINA MONTIEL LICENSE PROPOSAL SPECIALIST Signed: 12/25/2023 08:38 DANIELA KELLEY
--- OUTSIDE RECORDS SUMMARY | 2024-07-21 08:19 | XMS_ITS | Encounter Summary ---
Author Name [facility] [facility] [place] [facility] [place] Address [address] [place] [id number] Care Team Providers Care Skein Bander Name Role Phone MAK TARIQ Primary Care Provider Unavailab le Selected Encounter This section includes the information on record at [place] for the Encounter. Date/Time Encounter Type Encounter Description Reason Provider Source Apr 06, 2024 11:30 AM PSYTX W PT [facility] - IND ICD-10-CM F90.2 Attention-deficit hyperactivity disorder, combined type HAFSA LEMUS [facility] Encounter Template Text not used by [place] Assessments - Encounter Diagnoses This section includes the primary and secondary diagnoses documented for the Encounter. Date/Time Primary/Secondary Diagnosis Diagnosis Name Provider Source Apr 07, 2024 12:48 PM PRIMARY Attention-deficit hyperactivity disorder, combined type HAFSA LEMUS [facility] Apr 07, 2024 12:48 PM SECONDARY activity HAFSA LEMUS [facility] Apr 07, 2024 12:48 PM SECONDARY Post-traumatic stress disorder, chronic HAFSA LEMUS [facility] Plan of Treatment: Future Appointments (+ 6 months) and Future Tests (+/- 45 days) The Plan of Treatment section includes future care activities for the patient from all [place] treatmentfacilities. This section includes future appointments and future orders which are active, pending or scheduled. Future Appointments This section includes appointments that were scheduled to occur 6 months from the date of the Encounter, up to a maximum of 20 appointments. The data comes from all [facility] treatment facilities. Appointment Date/Time Appointment Type Appointme nt Facility Name Apr 14, 2024 01:00 PM AMBULATORY - MEDICINE [facility] Apr 22, 2024 10:30 AM AMBULATORY - PSYCHIATRY [facility] Apr 26, 2024 11:30 AM [facility]ATORY [facility]CHIATRY [facility] [place] [facility] Apr 29, 2024 08:00 AM [facility] [place] [facility] [place] [facility] May 27, 2024 11:30 AM AMBULATORY - PSYCHIATRY [facility] [place] [facility] Jun 02, 2024 10:15 AM [facility] [place] [facility] [place] [facility] Jun 22, 2024 11:30 AM [facility]ORY - [facility]IATRY [facility] [place] [facility] Jul 22, 2024 12:20 PM [facility] [place] [facility] [place] [facility] Active, Pending, and Scheduled Orders This section includes a listing of several types of active, pending, and scheduled orders, including clinic medications orders, diagnostic test orders, procedure orders and consult orders; where thestart date of the order is 45 days before the date of the Encounter or 45 days after the date of the Encounter. The data comes from all [facility]. Test Date/Time Test Type Test Details Facility Name May 18, 2024 10:18 AM Consult Order [facility] Cons [employer] [facility] Lab Results: +/- 30 days of the encounter This section includes the Chemistry and Hematology Lab Results on record with [place] for the patient. Radiology Reports and Pathology Reports are provided separately, in subsequent sections. Lab Results This section contains the Chemistry/Hematology Results that were resulted 30 days before or 30 daysafter the date of the Encounter. Date/Time Source Result Type Result - Unit Interpretation Reference Range Specimen Type Comment May 04, 2024 02:38 PM [place] SEMEN ANALYSIS,FERTILITY (FHI) SEMINAL FLUID Specimen Type: SEMINAL FLUID No comment entered. Ordering Provider: MAK TARIQ Report Released Date/Time: Apr 18, 2024 09:55 AM Reporting Lab: [address] [address] Performing Lab: [address] [address] SEMEN ANALYSIS,FERTILITY (FHI) SEE LIZBETH Justice Apr 14, 2024 01:50 PM [place] CBC AND DIFF (AUTO) BLOOD Specimen Ty pe: BLOOD No comment entered. Ordering Provider: MAK TARIQ Report Released Date/Time: Apr 14, 2024 01:26 PM Reporting Lab: [facility] [address] [facility] [address] Performing [facility]: [facility] [address] [address] WBC 10.70 10*3/uL 4.50-11.00 RBC 4.73 10*6/uL [...] 10*3/uL 0.00-0.00 Apr 14, 2024 01:16 PM [place] COVID-19 FLU/RSV DIAGNOSTIC PANEL NASOPHARYNX Specimen Type: NASOPHARYNX Comment: This test is authorized for emergency use only. False negative results may occur if virus is present at levels below the analytical limit of detection.Negative results do not preclude SARS-CoV-2, influenza or RSV infection and should not be used as the sole basis for treatment or other patient management decisions.Cepheid FLUVID: HCPs: https://www.fda.gov/media/115359/download. Patients: https://www.fda.gov/media/041582/download Ordering Provider: MAK TARIQ Report Released Date/Time: Apr 14, 2024 01:05 PM Reporting Lab: [address] [address] Performing Lab: [address] [address] COVID-19 PCR (FLUVID) NEGATIVE NEGATIVE FLU A PCR (FLUVID) NEGATIVE FLU B PCR (FLUVID) NEGATIVE RSV PCR (FLUVID) NEGATIVE Apr 08, 2024 10:18 AM [facility] URINALYSIS URINE Specimen Type: URINE Comment: If Glucose = >500 and Ketones are positive, please alert the Physician. Ordering Provider: CLEO HOPKINS Report Released Date/Time: Mar 30, 2024 10:57 AM Reporting Lab: [address] [address] Performing Lab: [address] [address] UA COLOR Light-Yellow Yellow UA APPEARANCE Clear Clear UA GLUCOSE Normal mg/dL Negative UA KETONES NEGATIVE mg/dL Negative UA BLOOD NEGATIVE mg/dL Negative UA PROTEIN 10 mg/dL Negative UA NITRITE NEGATIVE mg/dL Negative UA BILIRUBIN NEGATIVE mg/dL Negative UA SPECIFIC GRAVITY 1.019 1.016-1.022 UA pH 6.5 5.0-9.0 UA UROBILINOGEN Normal mg/dL <2.0 UA LEUKOCYTE NEGATIVE Negative Apr 08, 2024 10:08 AM [facility] TSH SERUM Specimen Type: SERUM No comment entered. Ordering Provider: CLEO HOPKINS Report Released Date/Time: Apr 15, 2023 03:54 PM Reporting Lab: [facility] [address] [facility] [address] Performing Lab: [address] [address] TSH 1.08 u[IU]/mL 0.35-5.00 Apr 08, 2024 10:08 AM [facility] BASIC METABOLIC PANEL (fasting) SERUM Specime n Type: SERUM No comment entered. Ordering Provider: CLEO OHPKINS Report Released Date/Time: Apr 15, 2023 03:54 PM Reporting Lab: [facility] [address] [facility] [address] Performing Lab: [address] [address] UREA NITROGEN 16 mg/dL 7-25 GLUCOSE 94 mg/dL 65-100 SODIUM 139 mmol/L 135-145 POTASSIUM 4.1 mmol/L 3.5-5.0 CHLORIDE 106 mmol/L 100-110 CO2 25 meq/L 20-30 CREATININE, Serum 1.17 mg/dL 0.50-1.40 eGFR(CKD-EPI 2020) 87 mL/min >60 Apr 08, 2024 10:08 AM [facility] LIPID PANEL FASTING SERUM Specimen Type: SERU M No comment entered. Ordering Provider: CLEO HOPKINS Report Released Date/Time: Apr 15, 2023 03:54 PM Reporting Lab: [address] [address] Performing Lab: [address] [address] CHOLESTEROL 146 mg/dL TRIGLYCERIDE 103 mg/dL 0-150 LDL calculated 87 mg/dL 0-129 CHOL/HDL 3.8 HDL CHOLESTEROL 38 mg/dL L 40-60 Apr 08, 2024 10:08 AM [facility] HEMOGLOBIN A1C PANEL BLOOD Specimen Type: BLO [...] Apr 15, 2023 03:54 PM Reporting Lab: [facility] [address] [facility] [facility] [address] Performing Lab: [address] [address] HEMOGLOBIN A1C 5.0 4.0-5.6 Apr 08, 2024 10:08 AM [facility] LIVER FUNCTION SERUM Specimen Type: SERUM No comment entered. Ordering Provider: CLEO HOPKINS Report Released Date/Time: Apr 15, 2023 03:54 PM Reporting Lab: [address] [address] Performing Lab: [address] [address] PROTEIN,TOTAL 7.4 g/dL 6.0-8.3 ALBUMIN 4.5 g/dL 3.5-5.0 ALKALINE PHOSPHATASE 67 U/L 40-150 AST 20 U/L 5-34 ALT 47 U/L BILIRUBIN, TOTAL 0.7 mg/dL 0.2-1.2 Apr 08, 2024 10:08 AM [facility] CBC AND DIFF (AUTO) BLOOD Specimen Type: BLOO D No comment entered. Ordering Provider: CLEO HOPKINS Report Released Date/Time: Apr 15, 2023 03:54 PM Reporting Lab: [address] [address] Performing Lab: [address] [address] WBC 12.14 10*3/uL H 4.50-11.00 RBC 5.20 [...] and tobacco- related health factors from the [place] facility where the Encounter took place. Current Smoking Status This section includes the most current smoking, or tobacco-related health factor, from the [place] facility where the Encounter took place. Date/Time Current Smoking Status Comment Facil ity Apr 05, 2021 09:05 AM [place]-TOBAC[facility] FORMER USER [facility] Tobacco Use History This section includes a history of the smoking, or tobacco-related health factors, that were collected on or before the date of the Encounter. The data comes from the [place] facility where the Encounter took place. Date/Time Smoking Status/Tobacco Use Comment F acility Apr 05, 2021 09:05 AM [place]-TOBACCO QUIT 1 TO < 5 YRS [facility] Radiology Reports: +/- 30 days of the [...] the Encounter. The data comes from all [place] treatment facilities. 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 Comparison: None. Findings: The knee joint spaces are well maintained. 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 Comparison: None. Findings: The knee joint spaces are well maintained. 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 The left patella appears normal. There is no suprapatellar joint effusion present. No bony fracture, dislocation or subluxation is seen. The bony mineralization is normal. Impression: No acute bony abnormality, as described above. Primary Diagnostic Code: No immediate attention required Primary Interpreting Staff: LATIA DODSON JR, Radiologist (C Programmer) /LATIA NEAL JR [facility] Encounter Notes: All associated encounter notes This section contains the clinical notes associated to the Encounter. Date/Time Encounter Note(s) Provider Source Apr 06, 2024 11:29 AM SOCIAL WORK NOTE: LOCAL TITLE: SOCIAL WORK NOTE STANDARD TITLE: SOCIAL WORK NOTE DATE OF NOTE: APR 06, 2024@11:29 ENTRY DATE: APR 06, 2024@11:29:07 AUTHOR: ADELA LEMUS COSIGNER: URGENCY: STATUS: COMPLETED Diagnosis: PTSD Presenting Problem: Randolph following up on phone call yesterday with [facility] psychologist, endorsing same complaints. I'm a grouch. Course of Session: Purpose of visit is vague. He describes [...] now though did discuss already referrals for [facility]. Has seen Dr Lorin Hines in recent past. As reported yesterday, he is now waiting on papers for FMLA. He told the [employer] he is strugggling with PTSD. He does not plan to go to work today. He does drive and has access to car. He confirms his telephone contact information. Specific mental health/clinical interventions: active listening, encouragement, psychoeducation, systems guidance. Recommended groups and prosocial involvement in community, [facility], and relaxation/coping skills. He enjoys cooking and spending time with girlfriend. Mental Status/Clinical Impression: is alert and fully oriented. Grooming marginal. Thinking was logical and goal-directed. Auditory comprehension appeared intact. His mood was anxious with euthymic affect. Randolph was cooperative, polite, and engaged. He exhibited intact insight and deficit awareness. There were no hallucinations or other indication of formal thought disorder. Risk Assessment: denied SI/HI Date of next planned contact: He is very interested in trying Alpha Stim. Will consider to check out the [facility]. Will call back [facility] who attempted to reach him. Would like to meet psychiatrist. /theodore/ LUDIN BARDALES CLINICAL BUILDING REPAIR MAINTENANCE SUPERVISOR Signed: 04/07/2024 12:32 [facility]
--- OUTSIDE RECORDS SUMMARY | 2024-07-21 08:20 | XMS_ITS | Continuity of Care Document ---
Author Name [facility] Organization [facility] Care Team Providers Care Supply Aide Name Role Phone [facility] Unavailable Unavailable Problems Combined list of problems from Department of Defense and Veterans Affairs facilities. It does not include entries that were removed or entered in error. Problem Status Onset Date Problem Type Date of Resolution Comments Source Pain in right knee Active Condition [facility] Acute upper respiratory infection, unspecified Active Condition [facility] Allergic rhinitis, unspecified Active Condition [facility] Attention deficit hyperactivity disorder, combined type Active Condition [place] Chronic back pain [facility] Chronic post-traumatic stress disorder following combat Active Condition [place] Family history of diabetes mellitus Active Condition Feb 15 Entered By: JANET HOPKINS Comment: father [facility] Family history of malignant neoplasm Active Condition Mar 21, 2024 Entered By: JAYCEE TARIQ Comment: Maternal uncle with colon cancer dx in his 30's [facility] FH: Crohn's disease Active Condition Mar 21, 2024 Entered By: JAYCEE TARIQ Comment: sister [facility] Liver function tests abnormal Active Condition Feb 25, 2020 Entered By: JANET HOPKINS Comment: 01/2020 mild isolated ALT abnormality (70)Jun 13, 2021 Entered By: JANET HOPKINS Comment: NS to liver u/s 05/2021 [facility] Obstructive sleep apnea Active Condition [place] Overweight Active Condition [facility] Panic disorder Active Condition [facility] Right knee pain Active Condition Mar 12, 2024 Entered By: JANET HOPKINS Comment: May 2023 MRI RIGHT knee: Bucket-handle tear of the lateral meniscus.Mar 12, 2024 Entered By: JANET HOPKINS Comment: [facility] July 2023 surgery [facility] Urine chlamydia trachomatis test positive Active Condition Feb 16, 2020 Entered By: JANET HOPKINS Comment: 01/2020 - tx[facility]ed [facility] Diagnosis: ICD-10-CM F43.12 Post-traumatic stress disorder, chronic Active Diagnosis [place] Diagnosis: ICD-10-CM J06.9 Acute upper respiratory infection, unspecified Active Diagnosis [place] Diagnosis: ICD-10-CM F90.2 Attention-deficit hyperactivity disorder, combined type Active Diagnosis [facility] Diagnosis: ICD-10-CM M25.561 Pain in right knee Active Diagnosis [place] Diagnosis: ICD-10-CM G47.33 Obstructive sleep apnea (adult) (pediatric) Active Diagnosis [place] Diagnosis: ICD-10-CM Z23 Encounter for immunization Active Diagnosis [place] Diagnosis: ICD-10-CM M25.549 Pain in joints of unspecified hand Active Diagnosis [facility] Diagnosis: ICD-10-CM K21.9 Gastro-esophageal reflux disease without esophagitis Active Diagnosis [place] Medications Combined list of outpatient medications from Department of Defense and Veterans Affairs facilities.Medications provided include 1) outpatient medications from the last 15 months, and 2) patient-reported medications. Medication Details Route Status Patient Instructions Prescription Expires Prescription Number Last Dispense Date Ordering Provider Order Date Order Qty Source CLOTRIMAZOL E 1% CREAM,TOP APPLY A SMALL AMOUNT TOPICALL Y TWICE DAILY FOR FUNGAL INFECTIO N TOPICA L SUSPEND ED 04/15/2025 [id number] RA MC TARIQ 2024 30 [facility] Escitalopra m (Lexapro Starter Kit) Tablet 10 mg Oral TAKE ONE TABLET BY MOUTH ONCE DAILY FOR MOOD/DEP RESSION 03/25/2024 [id number] MINDY HAWTHORNE 2023 30 [facility] ESCITALOPRA M OXALATE 10MG TAB TAKE ONE TABLET BY MOUTH ONCE DAILY FOR MOOD/DEP RESSION ORAL DISCONT INUED (EDIT) 04/27/2025 [id number] 5 Darrian HAWTHORNE 2024 30 [facility] ESCITALOPRA M OXALATE 10MG TAB TAKE ONE TABLET BY MOUTH ONCE DAILY FOR MOOD/DEP RESSION ORAL DISCONT INUED 03/25/2024 [id number] Darrian HAWTHORNE 2022 30 [place] ESCITALOPRA M OXALATE 20MG TAB TAKE ONE-HALF TABLET BY MOUTH ONCE DAILY FOR MOOD/DEP RESSION ORAL ACTIVE 06/23/2025 [id number] Darrian HAWTHORNE 2024 15 [place] OMEPRAZOLE 20MG CAP,EC TAKE ONE CAPSULE BY MOUTH EVERY MORNING 30 MINUTES BEFORE BREAKFAS T FOR EXCESSIV E PRODUCTI ON OF STOMACH ACID ORAL 03/18/2024 [id number] DIGNA HOPKINSARI O 2022 180 [place] SILDENAFIL CITRATE 100MG TAB TAKE ONE TABLET BY MOUTH ONCE DAILY NEEDED TAKE 1 HOUR PRIOR TO SEXUAL ACTIVITY ORAL 03/18/2024 [id number] SANDEEPLIZANDROLINARI O 2022 6 [place] TRAZODONE HCL 100MG TAB TAKE TWO TABLETS BY MOUTH AT BEDTIME FOR INSOMNIA ASSOCIAT ED WITH DEPRESSI ON ORAL ACTIVE 06/23/2025 [id number] Darrian HAWTHORNE 2024 60 [place] TRAZODONE HCL 100MG TAB TAKE ONE-HALF TO ONE TABLET BY MOUTH AT BEDTIME NEEDED FOR INSOMNIA ASSOCIAT ED WITH DEPRESSI ON ORAL DISCONT INUED (EDIT) 04/27/2025 [id number] 5 Darrian HAWTHORNE 2024 30 [place] TRAZODONE HCL 100MG TAB TAKE ONE-HALF TO ONE TABLET BY MOUTH AT BEDTIME NEEDED FOR INSOMNIA ASSOCIAT ED WITH DEPRESSI ON ORAL DISCONT INUED 03/25/2024 [id number] 4 Darrian HAWTHORNE 2022 30 [place] Trazodone Hcl, 100mg, Tablet, Oral TAKE ONE-HALF TO ONE TABLET BY MOUTH AT BEDTIME NEEDED FOR INSOMNIA ASSOCIAT ED WITH DEPRESSI ON 03/25/2024 [id number] MINDY HAWTHORNE 2023 30 [facility] Allergies, Adverse Reactions, Alerts Combined list of allergies from Department of Defense and Veterans Affairs facilities. It does not include entries that were removed or entered in error. Substance Category Reaction Severity Reaction type Status Date Reported Comments Source No Known Allergies Drug allergy (disorder) active 12/28/2014 [facility] Immunizations Combined list of available immunizations from the Department of Defense and Veterans Affairs facilities. Immunization Series Date Given Administered By Site Reaction Lot Number CVX Code Drug Pipe Stem Sawyer Status Comments Source HPV9 3 2023 FARHAN ESTRADA LEFT [place] ID [id number] 165 complet ed [facility] HPV9 2022 FARHAN ESTRADA Melody RIGHT DELTO ID [id number] 165 complet ed [facility] HPV9 1 2022 WILY POOLE LEFT DEL[place] ID [id number] 165 complet ed [facility] Influenza, injectable, quadrivalent, preservative free 1 2016 [id number] Seqirus (SEQ) comple t ed Influenza , injectabl e, quadrival ent, preservat ashley free DoD anthrax vaccine 2 2016 [id number] [employer] [place] (MIP) complet ed anthrax vaccine DoD anthrax vaccine 1 2015 [id number] [employer] [place] (MIP) complet ed anthrax vaccine DoD typhoid Vi capsular polysaccharid e vaccine 1 2015 [id number] 101 Sanofi Pasteur (PMC) complet ed typhoid Vi capsular polysacch aride vaccine DoD influenza, injectable, quadrivalent, contains preservative 1 2015 [id number] 1A 158 Se[employer]irus (SEQ) complet ed influenza , injectabl e, quadrival ent, contains preservat ashley DoD hepatitis B vaccine, adult dosage 3 2015 [id number] 43 Unknown (UNK) comple t ed hepatitis B vaccine, adult dosage DoD measles, mumps and rubella virus vaccine 2 2014 [id number] 03 Merck (MSD) complet ed measles, mumps and rubella virus vaccine DoD hepatitis B vaccine, pediatric or pediatric/ado lescent dosage 2 2014 [id number] 08 [employer] ([facility]) complet ed hepatitis B vaccine, pediatric or pediatric /adolesce nt dosage DoD varicella virus vaccine 2 2014 [id number] 21 Merck (MSD) complet ed varicella virus vaccine DoD Influenza, seasonal, injectable 1 2014 [id number] 1A 141 [facility] [employer] (CS) complet ed Influenza , seasonal, injectabl e DoD Influenza, seasonal, injectable 1 2014 [id number] 1A 141 [facility] [employer] (CS) complet ed Influenza , seasonal, injectabl e DoD measles, mumps and rubella virus vaccine 1 2014 [id number] 03 Merck (MSD) complet ed measles, mumps and rubella virus vaccine DoD hepatitis B vaccine, pediatric or pediatric/ado lescent dosage 1 2014 [id number] 08 [employer]ix ([facility]) complet ed hepatitis B vaccine, pediatric or pediatric /adolesce nt dosage DoD varicella virus vaccine 1 2014 [id number] 21 Merck (MSD) complet ed varicella virus vaccine DoD hepatitis A vaccine, adult dosage 1 2014 UNK 52 Unknown (UNK) Not Given hepatitis A vaccine, adult dosage DoD Adenovirus, type 4 and type 7, live, oral 1 2014 [id number] 143 [employer] ([facility]) complet ed Adenoviru s, type 4 and type 7, live, oral DoD poliovirus vaccine, inactivated 1 2014 [id number] 10 Sanofi Pasteur ([facility]) complet ed polioviru s vaccine, inactivat ed DoD meningococcal polysaccharid e (groups A, C, Y and W-135) diphtheria toxoid conjugate vaccine (MCV4P) 1 2014 [id number] 114 [employer]ix ([facility]) complet ed meningoco ccal polysacch aride (groups A, C, Y and W-135) diphtheri a toxoid conjugate vaccine (MCV4P) DoD tetanus toxoid, reduced diphtheria toxoid, and acellular pertu is vaccine, adsorbed 1 2014 [id number] 115 Sanofi Pasteur ([facility]) complet ed tetanus toxoid, reduced diphtheri a toxoid, and acellular pertussis vaccine, adsorbed DoD TDAP 2014 115 complet ed [facility] Results Combined list of recent chemistry, hematology and other laboratory results from Department of Defense and Veterans Affairs, ranging from 15 months to all on record, depending upon the facility. Order Name Results Value Reference Range Date Interpretation Specimen Comments Source CBC AND DIFF (AUTO) LEUKOCYTES [#/VOLUME] IN BLOOD BY AUTOMATED COUNT 6.72 10*3/uL 4.50 - 11.00 06/24 Specimen Type: BLOOD No comment entered. Ordering Provider: ASIM TARIQ Report Released Date/Time: Jun 22, 2024 09:56 AM Reporting Lab: [facility] [address] [address] Performing Lab: [facility] [address] [address] [place] CBC AND DIFF (AUTO) ERYTHROCYT ES [#/VOLUME] IN BLOOD BY AUTOMATED COUNT 4.93 10*6/uL 4.23 - 5.66 06/24 Specimen Type: BLOOD No comment entered. Ordering Provider: ASIM TARIQ Report Released Date/Time: Jun 22, 2024 09:56 AM Reporting Lab: [facility] [address] [address] Performing Lab: [facility] [address] [address] [place] CBC AND DIFF (AUTO) HEMOGLOBIN [MASS/VOLU ME] IN BLOOD 14.9 g/dL 12.8 - 17 06/24 Specimen Type: BLOOD No comment entered. Ordering Provider: ASIM TARIQ Report Released Date/Time: Jun 22, 2024 09:56 AM Reporting Lab: [facility] [address] [address] Performing Lab: [facility] [address] [address] [place] CBC AND DIFF (AUTO) HEMATOCRIT [VOLUME FRACTION] OF BLOOD BY AUTOMATED COUNT 43.1 39.2 - 50.4 06/24 Specimen Type: BLOOD No comment entered. Ordering Provider: ASIM TARIQ Report Released Date/Time: Jun 22, 2024 09:56 AM Reporting Lab: [facility] [place] [facility] [address] [address] Performing Lab: [facility]RR[facility]TRN [facility] [address] [address] [place] CBC AND DIFF (AUTO) MCV [ENTITIC VOLUME] BY AUTOMATED COUNT 87.4 fL 82 - 99 06/24 Specimen Type: BLOOD No comment entered. Ordering Provider: ASIM TARIQ Report Released Date/Time: Jun 22, 2024 09:56 AM Reporting Lab: [facility]TRN [facility] [address] [address] Performing Lab: [facility] [address] [address] [place] CBC AND DIFF (AUTO) MCHC [MASS/VOLU ME] BY AUTOMATED COUNT 34.6 g/dL 30.8 - 35.1 06/24 Specimen Type: BLOOD No comment entered. Ordering Provider: ASIM TARIQ Report Released Date/Time: Jun 22, 2024 09:56 AM Reporting Lab: [facility]TRN [facility] [address] [address] Performing Lab: [facility]ITALRL TRN [facility]ENTERUS[facility] [address] [address] [place] CBC AND DIFF (AUTO) PLATELETS [#/VOLUME] IN BLOOD BY AUTOMATED COUNT 286 10*3/uL 140 - 360 06/24 Specimen Type: BLOOD No comment entered. Ordering Provider: ASIM TARIQ Report Released Date/Time: Jun 22, 2024 09:56 AM Reporting Lab: [facility]TRN [facility] [address] [address] Performing Lab: [facility]TRN [facility] [address] [address] [place] CBC AND DIFF (AUTO) PLATELET MEAN VOLUME [ENTITIC VOLUME] IN BLOOD BY AUTOMATED COUNT 9.8 fL 9.2 - 12.4 06/24 Specimen Type: BLOOD No comment entered. Ordering Provider: ASIM TARIQ Report Released Date/Time: Jun 22, 2024 09:56 AM Reporting Lab: [facility]ITALRRUS[facility] CENTERTRN [address] [address] Performing Lab: [facility]ITALREN[facility] CENTERUSE[address] [address] [place] CBC AND DIFF (AUTO) ERYTHROCYT E DISTRIBUTI ON WIDTH [RATIO] BY AUTOMATED COUNT 11.7 12.0 - 16.0 06/24 L Specimen Type: BLOOD No comment entered. Ordering Provider: ASIM TARIQ Report Released Date/Time: Jun 22, 2024 09:56 AM Reporting Lab: [facility] [address] [address] Performing Lab: [facility] [address] [address] [place] CBC AND DIFF (AUTO) MONOCYTES [#/VOLUME] IN BLOOD BY AUTOMATED COUNT 0.44 10*3/uL 0.30 - 1.10 06/24 Specimen Type: BLOOD No comment entered. Ordering Provider: ASIM TARIQ Report Released Date/Time: Jun 22, 2024 09:56 AM Reporting Lab: [facility] [address] [address] Performing Lab: [facility]ITALRRUS[facility]ENTERTRN [facility]ENTERUSETS [address] [address] [place] CBC AND DIFF (AUTO) MCH [ENTITIC MASS] BY AUTOMATED COUNT 30.2 pg 26.2 - 32.6 06/24 Specimen Type: BLOOD No comment entered. Ordering Provider: ASIM TARIQ Report Released Date/Time: Jun 22, 2024 09:56 AM Reporting Lab: [facility]RR[facility] CENTERTRN [address] [address] Performing Lab: [facility] [address] [address] [place] CBC AND DIFF (AUTO) NEUTROPHIL S/100 LEUKOCYTES IN BLOOD BY AUTOMATED COUNT 50.6 43.7 - 75.8 06/24 Specimen Type: BLOOD No comment entered. Ordering Provider: ASIM TARIQ Report Released Date/Time: Jun 22, 2024 09:56 AM Reporting Lab: [facility] [place] [facility] [address] [address] Performing Lab: [facility] [place] [facility] [address] [address] [place] CBC AND DIFF (AUTO) LYMPHOCYTE S/100 LEUKOCYTES IN BLOOD BY AUTOMATED COUNT 42.1 14.0 - 42.3 06/24 Specimen Type: BLOOD No comment entered. Ordering Provider: ASIM TARIQ Report Released Date/Time: Jun 22, 2024 09:56 AM Reporting Lab: [facility] [address] [address] Performing Lab: [facility] [address] [address] [place] CBC AND DIFF (AUTO) MONOCYTES/ 100 LEUKOCYTES IN BLOOD BY AUTOMATED COUNT 6.5 5.1 - 13.7 06/24 Specimen Type: BLOOD No comment entered. Ordering Provider: ASIM TARIQ Report Released Date/Time: Jun 22, 2024 09:56 AM Reporting Lab: [facility] [place] [address] [address] Performing Lab: [facility] [place] [address] [address] [place] CBC AND DIFF (AUTO) EOSINOPHIL S/100 LEUKOCYTES IN BLOOD BY AUTOMATED COUNT 0.4 0.4 - 6.8 06/24 Specimen Type: BLOOD No comment entered. Ordering Provider: ASIM TARIQ Report Released Date/Time: Jun 22, 2024 09:56 AM Reporting Lab: [facility] [place] [facility] [address] [address] Performing Lab: [facility] [address] [address] [place] CBC AND DIFF (AUTO) BASOPHILS/ 100 LEUKOCYTES IN BLOOD BY AUTOMATED COUNT 0.3 0.1 - 2.0 06/24 Specimen Type: BLOOD No comment entered. Ordering Provider: ASIM TARIQ Report Released Date/Time: Jun 22, 2024 09:56 AM Reporting Lab: [facility] [address] [address] Performing Lab: [facility] [address] [address] [place] CBC AND DIFF (AUTO) NEUTROPHIL S [#/VOLUME] IN BLOOD BY AUTOMATED COUNT 3.39 10*3/uL 2.20 - 7.60 06/24 Specimen Type: BLOOD No comment entered. Ordering Provider: ASIM TARIQ Report Released Date/Time: Jun 22, 2024 09:56 AM Reporting Lab: [facility] [address] [address] Performing Lab: [facility] [address] [address] [place] CBC AND DIFF (AUTO) LYMPHOCYTE S [#/VOLUME] IN BLOOD BY AUTOMATED COUNT 2.83 10*3/uL 1.00 - 3.20 06/24 Specimen Type: BLOOD No comment entered. Ordering Provider: ASIM TARIQ Report Released Date/Time: Jun 22, 2024 09:56 AM Reporting Lab: [facility] [address] [address] Performing Lab: [facility] [address] [address] [place] CBC AND DIFF (AUTO) EOSINOPHIL S [#/VOLUME] IN BLOOD BY AUTOMATED COUNT 0.03 10*3/uL 0.03 - 0.44 06/24 Specimen Type: BLOOD No comment entered. Ordering Provider: ASIM TARIQ Report Released Date/Time: Jun 22, 2024 09:56 AM Reporting Lab: [facility] [address] [address] Performing Lab: [facility] [address] [address] [place] CBC AND DIFF (AUTO) BASOPHILS [#/VOLUME] IN BLOOD BY AUTOMATED COUNT 0.02 10*3/uL 0.01 - 0.13 06/24 Specimen Type: BLOOD No comment entered. Ordering Provider: ASIM TARIQ Report Released Date/Time: Jun 22, 2024 09:56 AM Reporting Lab: [facility] [place] [facility] [address] [address] Performing Lab: [facility] [address] [address] [place] CBC AND DIFF (AUTO) IMMATURE GRANULOCYT ES/100 LEUKOCYTES IN BLOOD BY AUTOMATED COUNT 0.1 0.0 - 0.7 06/24 Specimen Type: BLOOD No comment entered. Ordering Provider: AISM TARIQ Report Released Date/Time: Jun 22, 2024 09:56 AM Reporting Lab: [facility] [address] [address] Performing Lab: [facility] [address] [address] [place] CBC AND DIFF (AUTO) IMMATURE GRANULOCYT ES [#/VOLUME] IN BLOOD BY AUTOMATED COUNT 0.01 10*3/uL 0.00 - 0.06 06/24 Specimen Type: BLOOD No comment entered. Ordering Provider: ASIM TARIQ Report Released Date/Time: Jun 22, 2024 09:56 AM Reporting Lab: [facility] [address] [address] Performing Lab: [facility] [place] [address] [address] [place] CBC AND DIFF (AUTO) NUCLEATED ERYTHROCYT ES/100 LEUKOCYTES [RATIO] IN BLOOD BY AUTOMATED COUNT 0.0 0.0 - 0.0 06/24 Specimen Type: BLOOD No comment entered. Ordering Provider: ASIM TARIQ Report Released Date/Time: Jun 22, 2024 09:56 AM Reporting Lab: [facility] [address] [address] Performing Lab: [facility] [place] [address] [address] [place] CBC AND DIFF (AUTO) NUCLEATED ERYTHROCYT ES [#/VOLUME] IN BLOOD BY AUTOMATED COUNT 0.00 10*3/uL 0.00 - 0.00 06/24 Specimen Type: BLOOD No comment entered. Ordering Provider: ASIM TARIQ Report Released Date/Time: Jun 22, 2024 09:56 AM Reporting Lab: [facility]TR[facility] [address] [address] Performing Lab: [facility] [address] [address] [place] SEMEN ANALYSIS ,FERTILI TY (FHI) SEMEN ANALYSIS PANEL [facility] 05/04 Specimen Type: SEMINAL FLUID No comment entered. Ordering Provider: ASIM TARIQ Report Released Date/Time: Apr 18, 2024 09:55 AM Reporting Lab: [facility]TRN [address] [address] Performing Lab: [facility] [address] [address] [place] CBC AND DIFF (AUTO) LEUKOCYTES [#/VOLUME] IN BLOOD BY AUTOMATED COUNT 10.70 10*3/uL 4.50 - 11.00 04/14 Specimen Type: BLOOD No comment entered. Ordering Provider: ASIM TARIQ Report Released Date/Time: Apr 14, 2024 01:26 PM Reporting Lab: [facility]TR[facility] [address] [address] Performing Lab: [facility] [address] [address] [place] CBC AND DIFF (AUTO) ERYTHROCYT ES [#/VOLUME] IN BLOOD BY AUTOMATED COUNT 4.73 10*6/uL 4.23 - 5.66 04/14 Specimen Type: BLOOD No comment entered. Ordering Provider: ASIM TARIQ Report Released Date/Time: Apr 14, 2024 01:26 PM Reporting Lab: [facility]TR[facility]ENTERUSE[address] [address] Performing Lab: [facility] [place] [facility] [address] [address] [place] CBC AND DIFF (AUTO) HEMOGLOBIN [MASS/VOLU ME] IN BLOOD 14.5 g/dL 12.8 - 17 04/14 Specimen Type: BLOOD No comment entered. Ordering Provider: ASIM TARIQ Report Released Date/Time: Apr 14, 2024 01:26 PM Reporting Lab: [facility] [place] [facility] [address] [address] Performing Lab: [facility] [address] [address] [place] CBC AND DIFF (AUTO) HEMATOCRIT [VOLUME FRACTION] OF BLOOD BY AUTOMATED COUNT 41.5 39.2 - 50.4 04/14 Specimen Type: BLOOD No comment entered. Ordering Provider: ASIM TARIQ Report Released Date/Time: Apr 14, 2024 01:26 PM Reporting Lab: [facility] [place] [address] [address] Performing Lab: [facility] [address] [address] [place] CBC AND DIFF (AUTO) MCV [ENTITIC VOLUME] BY AUTOMATED COUNT 87.7 fL 82 - 99 04/14 Specimen Type: BLOOD No comment entered. Ordering Provider: ASIM TARIQ Report Released Date/Time: Apr 14, 2024 01:26 PM Reporting Lab: [facility] [place] [address] [address] Performing Lab: [facility]TR[facility] [address] [address] [place] CBC AND DIFF (AUTO) MCHC [MASS/VOLU ME] BY AUTOMATED COUNT 34.9 g/dL 30.8 - 35.1 04/14 Specimen Type: BLOOD No comment entered. Ordering Provider: ASIM TARIQ Report Released Date/Time: Apr 14, 2024 01:26 PM Reporting Lab: [facility]TRN [place] [address] [address] Performing Lab: [facility] [place] [facility] [address] [address] [place] CBC AND DIFF (AUTO) PLATELETS [#/VOLUME] IN BLOOD BY AUTOMATED COUNT 257 10*3/uL 140 - 360 04/14 Specimen Type: BLOOD No comment entered. Ordering Provider: ASIM TARIQ Report Released Date/Time: Apr 14, 2024 01:26 PM Reporting Lab: [facility] [place] [address] [address] Performing Lab: [facility]TRN [facility] [address] [place] CBC AND DIFF (AUTO) ERYTHROCYT E DISTRIBUTI ON WIDTH [RATIO] BY AUTOMATED COUNT 11.7 12.0 - 16.0 04/14 L Specimen Type: BLOOD No comment entered. Ordering Provider: ASIM TARIQ Report Released Date/Time: Apr 14, 2024 01:26 PM Reporting Lab: [facility] [place] [address] [address] Performing Lab: [facility] [place] [address] [address] [place] CBC AND DIFF (AUTO) MONOCYTES [#/VOLUME] IN BLOOD BY AUTOMATED COUNT 0.69 10*3/uL 0.30 - 1.10 04/14 Specimen Type: BLOOD No comment entered. Ordering Provider: ASIM TARIQ Report Released Date/Time: Apr 14, 2024 01:26 PM Reporting Lab: [facility] [place] [address] [address] Performing Lab: [facility] [place] [address] [address] [place] CBC AND DIFF (AUTO) MCH [ENTITIC MASS] BY AUTOMATED COUNT 30.7 pg 26.2 - 32.6 04/14 Specimen Type: BLOOD No comment entered. Ordering Provider: ASIM TARIQ Report Released Date/Time: Apr 14, 2024 01:26 PM Reporting Lab: [facility] [place] [facility] [address] [address] Performing Lab: [facility] [address] [address] [place] CBC AND DIFF (AUTO) NEUTROPHIL S/100 LEUKOCYTES IN BLOOD BY AUTOMATED COUNT 61.4 43.7 - 75.8 04/14 Specimen Type: BLOOD No comment entered. Ordering Provider: ASIM TARIQ Report Released Date/Time: Apr 14, 2024 01:26 PM Reporting Lab: [facility] [place] [facility] [address] [facility] [address] Performing Lab: [facility] [address] [address] [place] CBC AND DIFF (AUTO) LYMPHOCYTE S/100 LEUKOCYTES IN BLOOD BY AUTOMATED COUNT 30.5 14.0 - 42.3 04/14 Specimen Type: BLOOD No comment entered. Ordering Provider: ASIM TARIQ Report Released Date/Time: Apr 14, 2024 01:26 PM Reporting Lab: [facility] [address] [address] Performing Lab: [facility] [address] [address] [place] CBC AND DIFF (AUTO) MONOCYTES/ 100 LEUKOCYTES IN BLOOD BY AUTOMATED COUNT 6.4 5.1 - 13.7 04/14 Specimen Type: BLOOD No comment entered. Ordering Provider: ASIM TARIQ Report Released Date/Time: Apr 14, 2024 01:26 PM Reporting Lab: [facility] [place] [facility] [address] [address] Performing Lab: [facility] [address] [address] [place] CBC AND DIFF (AUTO) EOSINOPHIL S/100 LEUKOCYTES IN BLOOD BY AUTOMATED COUNT 0.8 0.4 - 6.8 04/14 Specimen Type: BLOOD No comment entered. Ordering Provider: ASIM TARIQ Report Released Date/Time: Apr 14, 2024 01:26 PM Reporting Lab: [facility] [address] [facility] [facility] [address] Performing Lab: [facility] [address] [address] [place] CBC AND DIFF (AUTO) BASOPHILS/ 100 LEUKOCYTES IN BLOOD BY AUTOMATED COUNT 0.4 0.1 - 2.0 04/14 Specimen Type: BLOOD No comment entered. Ordering Provider: ASIM TARIQ Report Released Date/Time: Apr 14, 2024 01:26 PM Reporting Lab: [facility]USE[address] [address] Performing Lab: [facility]ENTERUSE[address] [address] [place] CBC AND DIFF (AUTO) NEUTROPHIL S [#/VOLUME] IN BLOOD BY AUTOMATED COUNT 6.57 10*3/uL 2.20 - 7.60 04/14 Specimen Type: BLOOD No comment entered. Ordering Provider: ASIM TARIQ Report Released Date/Time: Apr 14, 2024 01:26 PM Reporting Lab: [facility]TRN [facility]USETS [address] [address] Performing Lab: [facility]ENTERUSE[address] [address] [place] CBC AND DIFF (AUTO) LYMPHOCYTE S [#/VOLUME] IN BLOOD BY AUTOMATED COUNT 3.26 10*3/uL 1.00 - 3.20 04/14 H Specimen Type: BLOOD No comment entered. Ordering Provider: ASIM TARIQ Report Released Date/Time: Apr 14, 2024 01:26 PM Reporting Lab: [facility] [address] [address] Performing Lab: [facility]TRN [facility]ENTERUSE[address] [address] [place] CBC AND DIFF (AUTO) EOSINOPHIL S [#/VOLUME] IN BLOOD BY AUTOMATED COUNT 0.09 10*3/uL 0.03 - 0.44 04/14 Specimen Type: BLOOD No comment entered. Ordering Provider: ASIM TARIQ Report Released Date/Time: Apr 14, 2024 01:26 PM Reporting Lab: [facility] [address] [address] Performing Lab: [facility] [address] [address] [place] CBC AND DIFF (AUTO) BASOPHILS [#/VOLUME] IN BLOOD BY AUTOMATED COUNT 0.04 10*3/uL 0.01 - 0.13 04/14 Specimen Type: BLOOD No comment entered. Ordering Provider: ASIM TARIQ Report Released Date/Time: Apr 14, 2024 01:26 PM Reporting Lab: [facility] [address] [address] Performing Lab: [facility]ENTERUSE[address] [address] [place] CBC AND DIFF (AUTO) IMMATURE GRANULOCYT ES/100 LEUKOCYTES IN BLOOD BY AUTOMATED COUNT 0.5 0.0 - 0.7 04/14 Specimen Type: BLOOD No comment entered. Ordering Provider: ASIM TARIQ Report Released Date/Time: Apr 14, 2024 01:26 PM Reporting Lab: [facility] [address] [address] Performing Lab: [facility] [address] [address] [place] CBC AND DIFF (AUTO) IMMATURE GRANULOCYT ES [#/VOLUME] IN BLOOD 0.05 10*3/uL 0.00 - 0.06 04/14 Specimen Type: BLOOD No comment entered. Ordering Provider: ASIM TARIQ Report Released Date/Time: Apr 14, 2024 01:26 PM Reporting Lab: [facility] [address] [address] Performing Lab: [facility] [address] [address] [place] CBC AND DIFF (AUTO) NRBC % 0.0 0.0 - 0.0 01/15 /2025 Specimen Type: BLOOD No comment entered. Ordering Provider: ASIM TARIQ Report Released Date/Time: Apr 14, 2024 01:26 PM Reporting Lab: [address] [address] Performing Lab: [address] [address] [place] CBC AND DIFF (AUTO) NRBC, ABS 0.00 10*3/uL 0.00 - 0.00 04/14 Specimen Type: BLOOD No comment entered. Ordering Provider: ASIM TARIQ Report Released Date/Time: Apr 14, 2024 01:26 PM Reporting Lab: [address] [address] Performing Lab: [address] [address] [facility] FLU/RSV DIAGNOST IC PANEL SARS-COV-2 (COVID-19) RNA [PRESENCE] IN RESPIRATOR Y SYSTEM SPECIMEN BY MANSI WITH PROBE DETECTION NEGATIVE 04/14 Specimen Type: NASOPHARYNX Comment: This test is authorized for emergency use only. False negative results may occur if virus is present at levels below the analytical limit of detection.N egative results do not preclude SARS-CoV-2, influenza or RSV infection and should not be used as the sole basis for treatment or other patient management decisions.C epheid FLUVID: HCPs: https://www .fda.gov/mt wisam/904308/ download. Patients: https://www .fda.gov/mt wisam/900722/ download Ordering Provider: ASIM TARIQ Report Released Date/Time: Apr 14, 2024 01:05 PM Reporting Lab: [address] [address] Performing Lab: [address] [address] [place] COVID-19 FLU/RSV DIAGNOST IC PANEL FLU A PCR (FLUVID) NEGATIVE 04/14 Specimen Type: NASOPHARYNX Comment: This test is authorized for emergency use only. False negative results may occur if virus is present at levels below the analytical limit of detection.N egative results do not preclude SARS-CoV-2, influenza or RSV infection and should not be used as the sole basis for treatment or other patient management decisions.C epheid FLUVID: HCPs: https://www .[facility].gov/mt wisam/598896/ download. Patients: https://www .[facility].gov/mt wisam/524078/ download Ordering Provider: ASIM TARIQ Report Released Date/Time: Apr 14, 2024 01:05 PM Reporting Lab: [address] [address] Performing Lab: [address] [address] [facility] COVID-19 FLU/RSV DIAGNOST IC PANEL FLU B PCR (FLUVID) NEGATIVE 04/14 Specimen Type: NASOPHARYNX Comment: This test is authorized for emergency use only. False negative results may occur if virus is present at levels below the analytical limit of detection.N egative results do not preclude SARS-CoV-2, influenza or RSV infection and should not be used as the sole basis for treatment or other patient management decisions.C epheid FLUVID: HCPs: https://www .[facility].gov/mt wisam/350316/ download. Patients: https://www .[facility].gov/mt wisam/111562/ download Ordering Provider: ASIM TARIQ Report Released Date/Time: Apr 14, 2024 01:05 PM Reporting Lab: [address] [address] Performing Lab: [address] [address] [place] COVID-19 FLU/RSV DIAGNOST IC PANEL RSV PCR (FLUVID) NEGATIVE 04/14 Specimen Type: NASOPHARYNX Comment: This test is authorized for emergency use only. False negative results may occur if virus is present at levels below the analytical limit of detection.N egative results do not preclude SARS-CoV-2, influenza or RSV infection and should not be used as the sole basis for treatment or other patient management decisions.C epheid FLUVID: HCPs: https://www .fda.gov/mt wisam/444742/ download. Patients: https://www .fda.gov/mt wisam/200646/ download Ordering Provider: ASIM TARIQ Report Released Date/Time: Apr 14, 2024 01:05 PM Reporting Lab: [facility] [place] [facility] [address] [address] Performing Lab: [facility] [place] [address] [address] [facility] URINALYS IS COLOR OF URINE Light-Ye llow 04/08 Specimen Type: URINE Comment: If Glucose = >500 and Ketones are positive, please alert the Physician. Ordering Provider: TOYA HOPKINS Report Released Date/Time: Mar 30, 2024 10:57 AM Reporting Lab: [facility] [place] [facility] [address] [facility] [address] Performing Lab: [facility] [place] [facility] [address] [facility] [address] [facility] [place] [facility] URINALYS IS APPEARANCE OF URINE Clear 04/08 Specimen Type: URINE Comment: If Glucose = >500 and Ketones are positive, please alert the Physician. Ordering Provider: TOYA HOPKINS Report Released Date/Time: Mar 30, 2024 10:57 AM Reporting Lab: [facility] [place] [facility] [address] [address] Performing Lab: [facility] [place] [address] [address] [facility]COM[facility] [place] [facility] URINALYS IS GLUCOSE [MASS/VOLU ME] IN URINE Normalmg /dL 04/08 Specimen Type: URINE Comment: If Glucose = >500 and Ketones are positive, please alert the Physician. Ordering Provider: TOYA HOPKINS Report Released Date/Time: Mar 30, 2024 10:57 AM Reporting Lab: [facility] [place] [address] [place] [address] Performing Lab: [facility] [place] [facility] [address] [facility] [address] [facility] [place] [facility] URINALYS IS KETONES [MASS/VOLU ME] IN URINE BY TEST STRIP NEGATIVE mg/dL 04/08 Specimen Type: URINE Comment: If Glucose = >500 and Ketones are positive, please alert the Physician. Ordering Provider: TOYA HOPKINS Report Released Date/Time: Mar 30, 2024 10:57 AM Reporting Lab: [facility] [place] [facility] [address] [facility] [address] Performing Lab: [facility] [address] [address] [facility]TR[facility] [place] [facility] URINALYS IS ERYTHROCYT ES [PRESENCE] IN URINE SEDIMENT BY LIGHT MICROSCOPY NEGATIVE mg/dL 04/08 Specimen Type: URINE Comment: If Glucose = >500 and Ketones are positive, please alert the Physician. Ordering Provider: TOYA HOPKINS Report Released Date/Time: Mar 30, 2024 10:57 AM Reporting Lab: [facility] [place] [address] [address] Performing Lab: [facility] [place] [facility] [address] [address] [facility] [place] [facility] URINALYS IS PROTEIN [MASS/VOLU ME] IN URINE BY TEST STRIP 10 mg/dL 04/08 Specimen Type: URINE Comment: If Glucose = >500 and Ketones are positive, please alert the Physician. Ordering Provider: TOYA HOPKINS Report Released Date/Time: Mar 30, 2024 10:57 AM Reporting Lab: [facility] [place] [facility] [address] [facility] [address] Performing Lab: [facility] [place] [facility] [address] [facility] [address] [facility] [place] [facility] URINALYS IS NITRITE [PRESENCE] IN URINE NEGATIVE mg/dL 04/08 Specimen Type: URINE Comment: If Glucose = >500 and Ketones are positive, please alert the Physician. Ordering Provider: TOYA HOPKINS Report Released Date/Time: Mar 30, 2024 10:57 AM Reporting Lab: [facility] [facility] [address] [facility] [facility] [address] Performing Lab: [facility] [place] [facility] [address] [address] [facility] [place] [facility] URINALYS IS BILIRUBIN. TOTAL [PRESENCE] IN URINE NEGATIVE mg/dL 04/08 Specimen Type: URINE Comment: If Glucose = >500 and Ketones are positive, please alert the Physician. Ordering Provider: TOYA HOPKINS Report Released Date/Time: Mar 30, 2024 10:57 AM Reporting Lab: [facility] [place] [facility] [address] [facility] [facility] [address] Performing Lab: [facility] [place] [address] [address] [facility] [place] [facility] URINALYS IS SPECIFIC GRAVITY OF URINE BY REFRACTOME TRY 1.019 1.016 - 1.022 04/08 Specimen Type: URINE Comment: If Glucose = >500 and Ketones are positive, please alert the Physician. Ordering Provider: TOYA HOPKINS Report Released Date/Time: Mar 30, 2024 10:57 AM Reporting Lab: [facility] [place] [facility] [address] [facility] [address] Performing Lab: [facility] [place] [address] [address] [facility] [place] [facility] URINALYS IS PH OF URINE BY TEST STRIP 6.5 5.0 - 9.0 04/08 Specimen Type: URINE Comment: If Glucose = >500 and Ketones are positive, please alert the Physician. Ordering Provider: TOYA HOPKINS Report Released Date/Time: Mar 30, 2024 10:57 AM Reporting Lab: [facility] [place] [address] [address] Performing Lab: [facility] [place] [facility] [address] [facility] [address] [facility] URINALYS IS UROBILINOG EN [MASS/VOLU ME] IN URINE BY TEST STRIP Normalmg /dL <2.0 - 2.0 04/08 Specimen Type: URINE Comment: If Glucose = >500 and Ketones are positive, please alert the Physician. Ordering Provider: TOYA HOPKINS Report Released Date/Time: Mar 30, 2024 10:57 AM Reporting Lab: [facility] [address] [address] Performing Lab: [address] [address] [facility] URINALYS IS LEUKOCYTE ESTERASE [PRESENCE] IN URINE BY TEST STRIP NEGATIVE 04/08 Specimen Type: URINE Comment: If Glucose = >500 and Ketones are positive, please alert the Physician. Ordering Provider: TOYA HOPKINS Report Released Date/Time: Mar 30, 2024 10:57 AM Reporting Lab: [facility] [address] [address] Performing Lab: [address] [address] [facility] TSH THYROTROPI N [UNITS/VOL UME] IN SERUM OR PLASMA 1.08 u[IU]/mL 0.35 - 5.00 04/08 Specimen Type: SERUM No comment entered. Ordering Provider: TOYA HOPKINS Report Released Date/Time: Apr 15, 2023 03:54 PM Reporting Lab: [facility] [address] [address] Performing Lab: [facility] [address] [address] [facility] BASIC METABOLI C PANEL (fasting ) UREA NITROGEN [MASS/VOLU ME] IN SERUM OR PLASMA 16 mg/dL 7 - 25 04/08 Specimen Type: SERUM No comment entered. Ordering Provider: TOYA HOPKINS Report Released Date/Time: Apr 15, 2023 03:54 PM Reporting Lab: [facility] [place] [facility] [address] [facility] [address] Performing Lab: [facility] [place] [facility] [address] [address] [facility] [place] [facility] BASIC METABOLI C PANEL (fasting ) GLUCOSE [MASS/VOLU ME] IN SERUM OR PLASMA 94 mg/dL 65 - 100 04/08 Specimen Type: SERUM No comment entered. Ordering Provider: TOYA HOPKINS Report Released Date/Time: Apr 15, 2023 03:54 PM Reporting Lab: [facility] [place] [address] [address] Performing Lab: [facility] [place] [address] [address] [facility] [place] [facility] BASIC METABOLI C PANEL (fasting ) SODIUM [MOLES/VOL UME] IN SERUM OR PLASMA 139 mmol/L 135 - 145 04/08 Specimen Type: SERUM No comment entered. Ordering Provider: TOYA HOPKINS Report Released Date/Time: Apr 15, 2023 03:54 PM Reporting Lab: [facility] [place] [address] [address] Performing Lab: [facility] [place] [address] [address] [facility] [place] [facility] BASIC METABOLI C PANEL (fasting ) POTASSIUM [MOLES/VOL UME] IN SERUM OR PLASMA 4.1 mmol/L 3.5 - 5.0 04/08 Specimen Type: SERUM No comment entered. Ordering Provider: TOYA HOPKINS Report Released Date/Time: Apr 15, 2023 03:54 PM Reporting Lab: [facility] [place] [facility] [address] [facility] [address] Performing Lab: [facility] [place] [address] [address] [facility] [place] [facility] BASIC METABOLI C PANEL (fasting ) CHLORIDE [MOLES/VOL UME] IN SERUM OR PLASMA 106 mmol/L 100 - 110 04/08 Specimen Type: SERUM No comment entered. Ordering Provider: TOYA HOPKINS Report Released Date/Time: Apr 15, 2023 03:54 PM Reporting Lab: [facility] [address] [address] Performing Lab: [address] [address] [facility] BASIC METABOLI C PANEL (fasting ) CARBON DIOXIDE, TOTAL [MOLES/VOL UME] IN SERUM OR PLASMA 25 meq/L 20 - 30 04/08 Specimen Type: SERUM No comment entered. Ordering Provider: TOYA HOPKINS Report Released Date/Time: Apr 15, 2023 03:54 PM Reporting Lab: [address] [address] Performing Lab: [address] [address] [facility] BASIC METABOLI C PANEL (fasting ) CREATININE [MASS/VOLU ME] IN SERUM OR PLASMA 1.17 mg/dL 0.50 - 1.40 04/08 Specimen Type: SERUM No comment entered. Ordering Provider: TOYA HOPKINS Report Released Date/Time: Apr 15, 2023 03:54 PM Reporting Lab: [address] [address] Performing Lab: [address] [address] [facility] BASIC METABOLI C PANEL (fasting ) GLOMERULAR FILTRATION RATE/1.73 SQ M.PREDICTE D [VOLUME RATE/AREA] IN SERUM, PLASMA OR BLOOD BY CREATININE -BASED FORMULA (CKD-EPI 2020) 87 mL/min 60 04/08 Specimen Type: SERUM No comment entered. Ordering Provider: TOYA HOPKINS Report Released Date/Time: Apr 15, 2023 03:54 PM Reporting Lab: [facility] [address] [facility] [address] Performing Lab: [facility] [place] [facility] [address] [facility] [address] [facility] LIPID PANEL FASTING CHOLESTERO L [MASS/VOLU ME] IN SERUM OR PLASMA 146 mg/dL 04/08 Specimen Type: SERUM No comment entered. Ordering Provider: TOYA HOPKINS Report Released Date/Time: Apr 15, 2023 03:54 PM Reporting Lab: [facility] [facility] [address] [facility] [address] Performing Lab: [facility]ENTERUSE[address] [address] [facility] LIPID PANEL FASTING TRIGLYCERI DE [MASS/VOLU ME] IN SERUM OR PLASMA 103 mg/dL 0 - 150 04/08 Specimen Type: SERUM No comment entered. Ordering Provider: TOYA HOPKINS Report Released Date/Time: Apr 15, 2023 03:54 PM Reporting Lab: [facility] TRN [facility]ENTERUSETS [facility] [address] [address] Performing Lab: [facility]ENTERUSE[address] [address] [facility] LIPID PANEL FASTING CHOLESTERO L IN LDL [MASS/VOLU ME] IN SERUM OR PLASMA BY JOSE ENRIQUE Swann 87 mg/dL 0 - 129 04/08 Specimen Type: SERUM No comment entered. Ordering Provider: TOYA HOPKINS Report Released Date/Time: Apr 15, 2023 03:54 PM Reporting Lab: [facility] [place] [facility] [address] [facility] [address] Performing Lab: [facility]USE[facility] [address] [address] [facility] TRN [facility] LIPID PANEL FASTING CHOLESTERO L.TOTAL/CH OLESTEROL IN HDL [MASS RATIO] IN SERUM OR PLASMA 3.8 04/08 Specimen Type: SERUM No comment entered. Ordering Provider: TOYA HOPKINS Report Released Date/Time: Apr 15, 2023 03:54 PM Reporting Lab: [facility]ENTERUSETS [facility] [address] [facility] [address] Performing Lab: [facility]ENTERUSETS [facility] [address] [facility] [address] [facility] TRN [facility]SUSE [facility] LIPID PANEL FASTING CHOLESTERO L IN HDL [MASS/VOLU ME] IN SERUM OR PLASMA 38 mg/dL 40 - 60 04/08 L Specimen Type: SERUM No comment entered. Ordering Provider: TOYA HOPKINS Report Released Date/Time: Apr 15, 2023 03:54 PM Reporting Lab: [facility]ENTERUSETS [facility] [address] [facility] [address] [address] Performing Lab: [facility]ENTERUSETS [address] [address] [facility]ITALRENCOM[facility] HEMOGLOB IN A1C PANEL HEMOGLOBIN A1C/HEMOGL OBIN.TOTAL IN BLOOD BY HPLC 5.0 4.0 - 5.6 04/08 Specimen Type: BLOOD Comment: Values obtained from A1C measurement s can vary. For atypical A1C assays, a reported value of 7.0 could actually be between 6.72 and 7.28 if measured by a reference method. A reported value of 9.0 could actually be between 8.73 and 9.27. Ref: http://www. ngsp.org/[place] Pdata.asp Ordering Provider: TOYA HOPKINS Report Released Date/Time: Apr 15, 2023 03:54 PM Reporting Lab: [facility] [place] [address] [address] Performing Lab: [facility] TRN [facility]ENTERUSE[address] [address] [facility]ITALRENCOM[facility]USE [facility] LIVER FUNCTION PROTEIN [MASS/VOLU ME] IN SERUM OR PLASMA 7.4 g/dL 6.0 - 8.3 04/08 Specimen Type: SERUM No comment entered. Ordering Provider: TOYA HOPKINS Report Released Date/Time: Apr 15, 2023 03:54 PM Reporting Lab: [place] [facility] [place] [facility] [address] [address] Performing Lab: [place] [facility] [place] [facility] [address] [facility] [address] [facility] [place] [facility] LIVER FUNCTION ALBUMIN [MASS/VOLU ME] IN SERUM OR PLASMA 4.5 g/dL 3.5 - 5.0 04/08 Specimen Type: SERUM No comment entered. Ordering Provider: TOYA HOPKINS Report Released Date/Time: Apr 15, 2023 03:54 PM Reporting Lab: [facility] [place] [facility] [address] [facility] [address] Performing Lab: [place] [facility] [facility] [address] [facility] [address] [facility] [place] [facility] LIVER FUNCTION ALKALINE PHOSPHATAS E [ENZYMATIC ACTIVITY/V OLUME] IN SERUM OR PLASMA 67 U/L 40 - 150 04/08 Specimen Type: SERUM No comment entered. Ordering Provider: TOYA HOPKINS Report Released Date/Time: Apr 15, 2023 03:54 PM Reporting Lab: [place] [facility] [place] [facility] [address] [facility] [address] Performing Lab: [place] [facility] [place] [facility] [address] [facility] [address] [facility] LIVER FUNCTION ASPARTATE AMINOTRANS FERASE [ENZYMATIC ACTIVITY/V OLUME] IN SERUM OR PLASMA 20 U/L 5 - 34 04/08 Specimen Type: SERUM No comment entered. Ordering Provider: TOYA HOPKINS Report Released Date/Time: Apr 15, 2023 03:54 PM Reporting Lab: [facility] [place] [facility] [address] [address] Performing Lab: [facility] [place] [facility] [address] [address] [facility] [facility] LIVER FUNCTION ALANINE AMINOTRANS FERASE [ENZYMATIC ACTIVITY/V OLUME] IN SERUM OR PLASMA 47 U/L 04/08 Specimen Type: SERUM No comment entered. Ordering Provider: TOYA HOPKINS Report Released Date/Time: Apr 15, 2023 03:54 PM Reporting Lab: [facility] [place] [facility] [address] [address] Performing Lab: [facility] [place] [facility] [address] [address] [facility] LIVER FUNCTION BILIRUBIN. TOTAL [MASS/VOLU ME] IN SERUM OR PLASMA 0.7 mg/dL 0.2 - 1.2 04/08 Specimen Type: SERUM No comment entered. Ordering Provider: TOYA HOPKINS Report Released Date/Time: Apr 15, 2023 03:54 PM Reporting Lab: [facility] [place] [facility] [address] [address] Performing Lab: [facility] [place] [facility] [address] [address] [facility] Vital Signs Combined list of inpatient and outpatient Vital Signs from Department of Defense and Veterans Affairs, ranging from 12 months to all on record, depending upon the facility. Vital Sign Value Date Comments Source PULSE OXIMETRY 99 04/14/2024 13:15:08 [place] WEIGHT 234 04/14/2024 13:15:08 [place] BMI 34 kg/m2 04/14/2024 13:15:08 [place] PAIN 1 04/14/2024 13:15:08 [place] HEIGHT 70 04/14/2024 13:15:08 [place] TEMPERATURE 96 04/14/2024 13:15:08 [place] PULSE 65 04/14/2024 13:15:08 [place] RESPIRATION 20 04/14/2024 13:15:08 [place] Encounters Combined list of: 1) Encounters from Department of Veterans Affairs facilities going backup to the last 18 months, not all VA inpatient encounters are included; 2) Encounters from the Department of Defense facilities going backup to 280 months. Location Location Details Encounter Type Encounter Number Reason For Visit Attending Provider ADM Date DC Date Status Disposition Source [place] [id number] Notes Entered by: Rey STALLWORTH 03 Nov 2014 1002 ------- ------- ------- ------- -- Hearing Test LISET STALLWORTH 11/03 Released w/o Limitations [facility] [place] [place] [facility] [facility] [place] OUTPATIENT [id number] EMPERATRIZ SHAUNA 11/04 Released w/o Limitations [place] [facility]omet [facility]) [place] OUTPATIENT [id number] Notes Entered by: MADELYN MEI 07 Nov 2014 0814 ------- ------- ------- ------- -- YUSUF RAO 11/07 [place]ased w/o Limitations [place] [facility] [place] [facility] OUTPATIENT [id number] Notes Entered by: Darrian HUMPHREY 16 Nov 2014 0704 ------- ------- ------- ------- -- MALLORY Anderson 11/16 Released with Work/Duty Limitations [place] [place] [place] ) [facility] [place] OUTPATIENT [id number] Notes Entered by: Darrian HUMPHREY 17 Nov 2014 0727 ------- ------- ------- ------- -- MALLORY Anderson 11/17 Released w/o Limitations [place] [place] [place] ) [facility] [place] [place] [facility] OUTPATIENT [id number] Notes Entered by: Darrian HUMPHREY 18 Nov 2014 0631 ------- ------- ------- ------- -- MALLORY Anderson 11/18 Released w/o Limitations [facility] ) [facility] [place] [place] [facility] OUTPATIENT [id number] Notes Entered by: Darrian HUMPHREY 21 Nov 2014 0618 ------- ------- ------- ------- -- Ankle MALLORY HUMPHREY 11/21 Released w/o Limitations [place] [place] [facility] [place] [facility]) OUTPATIENT [id number] Notes Entered by: KIRA PEPPER 28 Dec 2014 0905 ------- ------- ------- ------- -- IMM-FLU SHOT MARY BARBOSA 12/28 [place]ased w/o Limitations [place] [facility]) OUTPATIENT [id number] URI cold sx KAREEN BERTRAND 01/10 [place]ased w/o Limitations [place] [facility]) OUTPATIENT [id number] Notes Entered by: TRUPTI LEE 19 Jan 2015 0635 ------- ------- ------- ------- -- IMM-HEP B(P)MMR /CARLY LORENZO 01/19 Released w/o Limitations [place] [facility]([facility] Deploymen t Clinic) OUTPATIENT [id number] Notes Entered by: NIKKY VELASCO 01 Mar 2015 0914 ------- ------- ------- ------- -- [facility] WARNER GOMEZ 03/01 Released w/o Limitations [facility] [place]([facility] De[facility] ent [facility]) [facility] [place]([facility] Optometry ) OUTPATIENT [id number] ree [phone] SHAYAN RODRIGUEZ 06/29 Released w/o Limitations [facility] [place]([facility]) [facility] [place]) OUTPATIENT [id number] R knee pain ROSANA FAIR 08/14 Released w/o Limitations [facility] [place]([facility]) [facility] [place](Phys ical Therapy [facility]) OUTPATIENT [id number] Notes Entered by: Rubin MORENO 15 Aug 2015 0746 ------- ------- ------- ------- -- knee injury, sick call LEAH MORENO 08/14 Released w/o Limitations [facility](Ph ysical Therapy [facility]) [facility]([facility] ) OUTPATIENT [id number] f/u pt is request ing rosa sofya has prior prescri tion [phone] SHAYAN RODRIGUEZ 08/20 Released w/o Limitations [facility] [place]([facility]) [facility] [place](Phys ical Therapy [facility]) OUTPATIENT [id number] Notes Entered by: Ruibn MORENO 22 Aug 2015 1117 ------- ------- ------- ------- -- knee f/u LEAH MORENO 08/21 Released w/o Limitations [facility](Ph ysical Therapy [facility]) [facility] [place]([facility]) OUTPATIENT [id number] Notes Entered by: ADIN NIETO 07 Sep 2015 0947 ------- ------- ------- ------- -- PREETI HAYDEN 09/06 Released w/o Limitations [facility]([facility] ) [facility] [place]([facility]) OUTPATIENT [id number] Notes Entered by: CANDI DIEGO 07 Sep 2015 1009 ------- ------- ------- ------- -- ENHANCE Rubin RICCI GRETA JEAN Isha 09/06 Immediate Referral [facility]([facility]) [facility]([facility] Case Managemen t) OUTPATIENT [id number] Notes Entered by: MORIAH GUTIERREZ 07 Sep 2015 1150 ------- ------- ------- ------- -- NICK ALFARO 09/06 Released w/o Limitations [facility] [place]([facility] Case Managem ent) [facility]([facility]ometry [facility]) OUTPATIENT [id number] Notes Entered by: Ashlyn YEE 11 Dec 2015 0901 ------- ------- ------- ------- -- CARLI Tellez 12/10 Released w/o Limitations [facility]([facility]) [facility]) OUTPATIENT [id number] Notes Entered by: SAIDA POWER 29 Jan 2016 1246 ------- ------- ------- ------- -- right index finger pain SAIDA POWER 01/28 Released w/o Limitations [facility] Quintanilla(ER Rotatio [facility]al [facility]) [facility](Orthop edics [facility]) OUTPATIENT [id number] Notes Entered by: YAAKOV GOVEA 02 Feb 2016 1039 ------- ------- ------- ------- -- RIGHT INDEX FINGER KYLAH HOPKINS 02/01 Released with Work/Duty Limitations [facility] Cabrera(Orth opedics [facility]) [facility]([facility]) OUTPATIENT [id number] Finger JOSE ABERNATHY 02/20 Released w/o Limitations [facility] [place]([facility]) [facility] [place]([facility]) OUTPATIENT [id number] Notes Entered by: Ashlyn OSCAR 05 Mar 2016 0941 ------- ------- ------- ------- -- AGUSTO Kumar 03/05 Immediate Referral [facility]([facility]) [facility] [place]([facility] Case Managemen t) OUTPATIENT [id number] Notes Entered by: KELLY BEAR 05 Mar 2016 1132 ------- ------- ------- ------- -- 136 IN - INITIAL KELLY BEAR 03/05 Released w/o Limitations [facility]([facility] Case Managem ent) [facility] [place](Cast Room) OUTPATIENT [id number] right index finger fx THAORIVERA 03/05 Released w/o Limitations [facility] [place](Ca st Room) [facility] [place]([facility] Case Managemen t) OUTPATIENT [id number] Notes Entered by: KELLY BEAR 05 Mar 2016 1410 ------- ------- ------- ------- -- 136 IN - CLEARED TO KELLY JACOBS 03/05 Released w/o Limitations [facility]([facility] Case Managem ent) [facility](Occu pational Therapy) OUTPATIENT [id number] initial evaluat ion/see consult IMELDA CRUZ 03/14 Released with Work/Duty Limitations [facility] [place](Oc cupatio nal Therapy ) [facility] [place](Cast Room) OUTPATIENT [id number] Follow up for the right index DANIEL DUMASLudwin 03/14 Released w/o Limitations [facility] [place](Ca st Room) [facility] [place]([facility]) OUTPATIENT [id number] Notes Entered by: CHRISTEL LEPE 03 Jan 2017 1327 ------- ------- ------- ------- -- YIFAN LIU ANDREW DYERTHIA 01/03 Released w/o Limitations [facility]([facility] ) [facility] [place]([facility]) OUTPATIENT [id number] Notes Entered by: CARMELLA CHING 03 Jan 2017 1308 ------- ------- ------- ------- -- KYLE SOMMERS 01/03 Released w/o Limitations [facility]([facility] De[facility]m [facility]) [facility] [place]([facility]) OUTPATIENT [id number] Notes Entered by: ADIN NIETO 09 Jan 2017 1246 ------- ------- ------- ------- -- FOLLOW UP R + APPT ALEXA GOMEZ JACQUE 01/09 Released w/o Limitations [facility]([facility] ) [facility]([facility]) OUTPATIENT [id number] Notes Entered by: RIVERA PACHECO 10 Mar 2017 0632 ------- ------- ------- ------- -- Sick call 1-36 HAKAN CHAO 03/10 Released w/o Limitations [facility]([facility]) [facility] [place](Jaciel s Hearing Program) OUTPATIENT [id number] H1 POS STS...4 [phone] LUANA OSBORNE 03/11 Released w/o Limitations [facility](Bi ggs Hearing Program ) [facility]([facility]) OUTPATIENT [id number] ree [phone] SHAYAN RODRIGUEZ 04/07 Released w/o Limitations [facility] [place](Me n[facility]za Optomet ry Clinic) [facility] [place](Phys ical Therapy [facility]) OUTPATIENT [id number] Notes Entered by: Rubin MORENO 15 Jul 2017 0736 ------- ------- ------- ------- -- sick call back LEAH MORENO 07/15 Released w/o Limitations [facility](Ph ysical Therapy [facility]) [facility] [place](Phys ical Therapy [facility]) OUTPATIENT [id number] Notes Entered by: Rubin MORENO 21 Jul 2017 0647 ------- ------- ------- ------- -- walk in f/u sick call LEAH MORENO 07/21 Released with Work/Duty Limitations [facility](Ph ysical Therapy [facility]) [facility] [place]([facility]) OUTPATIENT [id number] ETS physica l [phone] JANES TRIPLETT 11/11 Released w/o Limitations [facility] [place]([facility] [place] OFF/OP EST JULY X REQ PHY/QHP 36121-7.63 [id number] Diagnos is: ICD-10- CM Z23 Encount er for immuniz ation NATALIE,L CAPRI H 01/21 [facility] [place] OFF/OP CONSLTJ NEW/[place] HI 55 [id number] [id number] Diagnos is: ICD-10- CM F43.12 Post-tr aumatic stress disorde r, chronic [facility] [place] 01/30 [facility] [place] OFFICE O/P EST LOW 20-29 MIN 06411-3.63 [id number] Diagnos is: ICD-10- CM 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, combine d type [facility] 02/28 [facility] [place] Outpatient Encounter [id number] 03/06 [facility] Outpatient Encounter [id number] 03/06 [facility] [place] [facility] [place] OFFICE O/P EST LOW 20-29 MIN [id number] [id number] Diagnos is: ICD-10- CM K21.9 Gastro- esophag eal reflux disease without esophag itis SANDEEP,A POLINARIO 03/18 [place] OFFICE O/P EST LOW 20-29 MIN [id number] [id number] Diagnos is: ICD-10- CM F43.12 Post-tr aumatic stress disorde r, chronic HA[place]THORNE,ST EVEN G 03/25 [place] [facility] Outpatient Encounter [id number] 04/03 [facility] [place] [facility] [place] PT EDUCATION NOC INDIVID [id number] [id number] Diagnos is: ICD-10- CM M25.561 Pain in right knee REJI,ER IC K 04/03 [place] [facility] [place] Outpatient Encounter [id number] 04/03 [facility] [place] [facility] [place] OFFICE O/P EST MOD 30 MIN [id number] [id number] Diagnos is: ICD-10- CM M25.561 Pain in right knee SANDEEP,A POLINARIO 04/15 [place] Outpatient Encounter [id number] [id number] 04/22 [place] OFFICE O/P EST LOW 20 MIN [id number] [id number] Diagnos is: ICD-10- CM F43.12 Post-tr aumatic stress disorde r, chronic HAWTHORNE,ST EVEN G 05/06 [place] [facility] Outpatient Encounter [id number] 05/08 [facility] En[facility] [id number] 05/09 [facility] [place] Outpatient Encounter [id number] [id number] 05/13 [place] [facility] En[facility] [id number] 05/13 [facility] [place] SELF-MGMT EDUC & TRAIN 1 [place] [id number] [id number] Diagnos is: ICD-10- CM G47.33 Obstruc tive sleep apnea (adult) ([facility]) FANG MARINO BJ 05/15 [place] [facility] En[facility] [id number] 05/20 [facility] [place] Out[place] Encounter [id number] [id number] 05/20 [facility] En[facility] [id number] [id number] 06/02 [place] [facility] Encounter [id number] [id number] 06/04 [facility] En[facility] [id number] 06/08 [facility] En[facility] [id number] 06/08 [facility] Encounter [id number] 06/08 [facility] [place] OFF[place] O/P EST MOD 30 MIN [id number] [id number] Diagnos is: ICD-10- CM M25.549 Pain in joints of unspeci fied hand Ashlyn HOPKINS POLIJONATHANIO 06/09 [place] [facility] Outpatient Encounter [id number] 06/09 [facility] [place] [facility] [place] [facility] Outpatient Encounter [id number] 06/10 [facility] [place] [facility] [facility] SLEEP STUDY UNATT&RESP EFFT [id number] [id number] Diagnos is: ICD-10- CM G47.33 Obstruc tive sleep apnea (adult) ([facility] bj) SAMINA MARINOBOWSER 06/10 [facility] [place] [facility] [place] OFF[place] O/P EST MOD 30 MIN [id number] [id number] Diagnos is: ICD-10- CM M25.561 Pain in right knee Joaquim ESTRADA H 06/11 [place] [facility] SLEEP STUDY UNATT&RESP EFFT [id number] [id number] Diagnos is: ICD-10- CM G47.33 Obstruc tive sleep apnea (adult) ([facility] bj) KAVITAO-UANDREW MaysJACQUE 06/18 [facility] [place] OFFICE O/P EST MOD 30 MIN [id number] [id number] Diagnos is: ICD-10- CM G47.33 Obstruc tive sleep apnea (adult) ([facility]) Ashlyn HOPKINS POLINARIO 06/25 [place] [facility] SELF CARE MNGMENT TRAINING [id number] [id number] Diagnos is: ICD-10- CM M25.561 Pain in right knee PRADHANGERBER REYNOLDS 07/07 [place] [facility] [place] [facility] Outpatient Encounter [id number] 07/20 [facility] [place] [place] OFF/OP EST JULY X REQ PHY/QHP [id number] [id number] Diagnos is: ICD-10- CM Z23 Encount er for immuniz Joaquim Avina 07/27 [facility] O/P EST MOD 30 MIN 70477-3.63 [id number] Diagnos is: ICD-10- CM G47.33 Obstruc tive sleep apnea (adult) ([facility]) SANDEEP,Ashlyn IRENE 07/30 [place] [facility] En[facility] [id number] 08/05 [facility] En[facility] [id number] 08/05 [facility] [place] [facility] SELF CARE MNGMENT TRAINING [id number] [id number] Diagnos is: ICD-10- CM M25.561 Pain in right knee GERBER PRADHAN 08/13 [place] [facility] POS AIRWAY PRESSURE FILTER [id number] [id number] Diagnos is: ICD-10- CM G47.33 Obstruc tive sleep apnea (adult) ([facility]) MAHAMED MAGANA 08/20 [facility] En[facility] [id number] 08/25 [facility] En[facility] [id number] 08/25 [facility] REPL ORAL CUSHION COMBO MASK [id number] [id number] Diagnos is: ICD-10- CM G47.33 Obstruc tive sleep apnea (adult) ([facility]) MAHAMED MAGANA 09/10 [facility] [place] [place] POS AIRWAY PRESSURE CPAP [id number] [id number] Diagnos is: ICD-10- CM G47.33 Obstruc tive sleep apnea (adult) ([facility]) MATT [place] 09/23 [place] COLLJ & INTERPJ DATA EA 30 D [id number] [id number] Diagnos is: ICD-10- CM G47.33 Obstruc tive sleep apnea (adult) ([facility]) MATT [place] 11/11 [place] SELF CARE MNGMENT TRAINING [id number] [id number] Diagnos is: ICD-10- CM M25.561 Pain in right knee GERBER PRADHAN 12/01 [place] THERAPEUTI C EXERCISES 36140-6.63 [id number] Diagnos is: ICD-10- CM M25.561 Pain in right knee Wendy KELLEY MATT 12/17 [place] THERAPEUTI C EXERCISES 50467-2.63 [id number] Diagnos is: ICD-10- CM M25.561 Pain in right knee Wendy KELLEY MATT 12/24 [place] THERAPEUTI C EXERCISES 00100-9.63 [id number] Diagnos is: ICD-10- CM M25.561 Pain in right knee Wendy KELLEY MATT 01/07 [place] THERAPEUTI C EXERCISES 49655-3.63 [id number] Diagnos is: ICD-10- CM M25.561 Pain in right knee Wendy KELLEY MATT 01/14 [place] [facility] Outpatient Encounter [id number] 01/23 [facility] [place] En[facility] [id number] [facility] En[facility] [id number] 03/08 [facility] En[facility] [id number] [id number] 03/11 [facility] En[facility] [id number] [id number]/05 [facility] PH1 ASSMT&MGMT NQHP 21-30 [id number] [id number] Diagnos is: ICD-10- CM F43.12 Post-tr aumatic stress disorde r, chronic LINDERME,K LEV M 04/05 [facility] PSYTX W PT 30 MINUTES [id number] [id number] Diagnos is: ICD-10- CM 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 [id number] [id number] Diagnos is: ICD-10- CM F43.12 Post-tr aumatic stress disorde r, chronic HIMA,W LARON 04/22 [facility] OFF[facility] O/P EST LOW 20 MIN [id number] [id number] Diagnos is: ICD-10- CM F43.12 Post-tr aumatic stress disorde r, chronic [facility] G 04/26 [facility] En[facility] [id number] 04/29 [facility] En[facility] [id number] [id number] 05/14 [facility] Outpatient Encounter [id number]/18 [facility] [place] [facility] OFFICE O/P EST LOW 20 MIN [id number] [id number] Diagnos is: ICD-10- CM F43.12 Post-tr aumatic stress disorde r, chronic [facility] IN[facility] G 05/27 [facility] Outpatient Encounter [id number] 06/02 [facility] [place] [facility] Outpatient Encounter [id number] 06/07 [facility] Outpatient Encounter [id number] 06/18 [facility] [place] [facility] LD OFFICE O/P EST LOW 20 MIN [id number] [id number] Diagnos is: ICD-10- CM F43.12 Post-tr aumatic stress disorde r, chronic [facility] Outpatient Encounter [id number] [facility] [place] Procedures Combined list of: 1) Procedures from Department of Veterans Affairs facilities going back up to thelast 18 months, not all VA non-surgical procedures are included; 2) All procedures from the Department of Defense facilities. Procedure Procedure Type Code Date Perfsteve Garcia e FINGER SPLINT, STATIC DoD APPLICATION OF FINGER SPLINT; STATIC DoD IMMUNIZATION ADMINISTRATION (INCLUDES PERCUTANEOUS, INTRADERMAL, SUBCUTANEOUS, OR INTRAMUSCULAR INJECTIONS); EACH ADDITIONAL VACCINE (SINGLE OR COMBINATION VACCINE/TOXOID) DoD INFLUENZA VIRUS VACCINE, TRIVALENT (IIV3), SPLIT VIRUS, 0.5 ML DOSAGE, FOR INTRAMUSCULAR USE DoD INJECTION, PENICILLIN G BENZATHINE, 100,000 UNITS DoD FITTING OF SPECTACLES, EXCEPT FOR APHAKIA; MONOFOCAL DoD PURE TONE AUDIOMETRY (THRESHOLD), AUTOMATED; AIR ONLY DoD THERAPEUTIC PROCEDURE, 1 OR MORE AREAS, EACH 15 MINUTES; THERAPEUTIC EXERCISES TO DEVELOP STRENGTH AND ENDURANCE, RANGE OF MOTION AND FLEXIBILITY DoD THERAPEUTIC PROCEDURE, 1 OR MORE AREAS, EACH 15 MINUTES; THERAPEUTIC EXERCISES TO DEVELOP STRENGTH AND ENDURANCE, RANGE OF MOTION AND FLEXIBILITY DoD PRESCRIPTION OF OPTICAL AND PHYSICAL CHARACTERISTICS OF AND FITTING OF CONTACT LENS, WITH MEDICAL SUPERVISION OF ADAPTATION; CORNEAL LENS, BOTH EYES, EXCEPT FOR APHAKIA DoD PURE TONE AUDIOMETRY (THRESHOLD); AIR ONLY DoD PURE TONE AUDIOMETRY (THRESHOLD), AUTOMATED; AIR ONLY DoD PURE TONE AUDIOMETRY (THRESHOLD), AUTOMATED; AIR ONLY DoD THERAPEUTIC PROCEDURE, 1 OR MORE AREAS, EACH 15 MINUTES; MASSAGE, INCLUDING EFFLEURAGE, PETRISSAGE AND/OR TAPOTEMENT (STROKING, COMPRESSION, PERCUSSION) DoD CASE MANAGEMENT, EACH 15 MINUTES DoD POLIOVIRUS VACCINE, INACTIVATED (IPV), FOR SUBCUTANEOUS OR INTRAMUSCULAR USE DoD FITTING OF SPECTACLES, EXCEPT FOR APHAKIA; MONOFOCAL DoD CASE MANAGEMENT, EACH 15 MINUTES DoD PURE TONE AUDIOMETRY (THRESHOLD), AUTOMATED; AIR ONLY DoD THERAPEUTIC PROCEDURE, 1 OR MORE AREAS, EACH 15 MINUTES; THERAPEUTIC EXERCISES TO DEVELOP STRENGTH AND ENDURANCE, RANGE OF MOTION AND FLEXIBILITY DoD PRESCRIPTION OF OPTICAL AND PHYSICAL CHARACTERISTICS OF AND FITTING OF CONTACT LENS, WITH MEDICAL SUPERVISION OF ADAPTATION; CORNEAL LENS, BOTH EYES, EXCEPT FOR APHAKIA [facility] THERAPEUTIC PROCEDURE, 1 OR MORE AREAS, EACH 15 MINUTES; THERAPEUTIC EXERCISES TO DEVELOP STRENGTH AND ENDURANCE, RANGE OF MOTION AND FLEXIBILITY Kait DETERMINATION OF REFRACTIVE STATE [facility] Physical Therapy: ___ Se ion Segments, 15 Minutes Each Physical Therapy: ___ Session Segments, 15 Minutes Each [id number] LEAH MORENO Osteopathic Manip Treatment (OMT) 1-2 Body Regions Involved Osteopathic Manip Treatment (OMT) 1-2 Body Regions Involved [id number] LEAH WEINSTEIN Physical Medicine Physical Therapy Re-Evaluation Physical Medicine Physical Therapy Re-Evaluation 02465 LEAH MORENO Physical Therapy: ___ Se ion Segments, 15 Minutes Each Physical Therapy: ___ Session Segments, 15 Minutes Each 09675 LEAH MOERNO Ophthalmological Prior Patient Start Intermediate Level Care Ophthalmological Prior Patient Start Intermediate Level Care [id number] SHAYAN RODRIGUEZ Determination Of Refractive State Determination Of Refractive State [id number] [id number] SHAYAN RODRIGUEZ Prescription & Fitting Bilateral Corneal Lenses (Not Aphakia Prescription & Fitting Bilateral Corneal Lenses (Not Aphakia [id number] [phone] SHAYAN RODRIGUEZ Threshold Audiogram (Pure Tone) Threshold Audiogram (Pure Tone) [id number] LUANA OSBORNE Health And Behav A e mt Each 15 Min Initial A e ment Health And Behav Assessmt Each 15 Min Initial Assessment [id number] LUANA OSBORNE Threshold Audiogram (Pure Tone) Automated Threshold Audiogram (Pure Tone) Automated 0208T 017 JACQUE DYER Threshold Audiogram (Pure Tone) Automated Threshold Audiogram (Pure Tone) Automated 0208T 017 JACQUE DYER Physical Therapy Ma age Physical Therapy Massage [phone] IMELDA CRUZ Mobilization Soft Ti ue Mobilization Soft Tissue 88191 IMELDA CRUZ Occupational Therapy Evaluation Occupational Therapy Evaluation 46074 IMELDA CRUZ Exercises A isted Exercises For ROM [place]ercises [place]isted [place] 42010 IMELDA CRUZ Case Management, each 15 minutes KELLY BEAR [facility] Coordinated care fee, maintenance rate KELLY BEAR Vaccines Viral Polio, Inactivated (Salk) Vaccines Viral Polio, Inactivated (Salk) 27149 AGUSTO RENAE Typhoid Vaccine Vi Capsular Polysaccharide, For Intramus Use Typhoid Vaccine Vi Capsular Polysaccharide, For Intramus Use 13035 AGUSTO RENAE [facility] -Supervised Services Provision Of Special Supplies -Supervised Services Provision Of Special Supplies 07435 KYLAH HOPKINS supplies issued for dressing changes [facility] Finger splint, static KYLAH HOPKINS Orthopedic Splinting Finger Static Orthopedic Splinting Finger Static 94756 KYLAH HOPKINS Wound Care Debridement Non-Selective KYLAH HOPKINS [facility] Fitting Monofocals (Not For Aphakia) [facility] Fitting Monofocals (Not For Aphakia) 35572 [facility] Threshold Audiogram (Pure Tone) Automated Threshold Audiogram (Pure Tone) Automated 0208T PREETI MON [facility] Coordinated care fee, maintenance rate NICK ALAN Case Management, each 15 minutes NICK ALAN Exercises A isted Exercises For ROM [place] 50228 LEAH MORENO Physical Medicine Physical Therapy Re-Evaluation Physical Medicine Physical Therapy Re-Evaluation 97741 LEAH MORENO Prescription & Fitting Bilateral Corneal Lenses (Not Aphakia Prescription & Fitting Bilateral Corneal Lenses (Not Aphakia [phone] SHAYAN RODRIGUEZ [facility] Ophthalmological Prior Patient Start Comprehensive Care Ophthalmological Prior Patient Start Comprehensive Care [phone] SHAYAN RODRIGUEZ Exercises A isted Exercises For ROM [place] 26355 LEAH MORENO Physical Medicine Physical Therapy Evaluation Physical Medicine Physical Therapy Evaluation 98568 LEAH MORENO [facility] Fitting Monofocals (Not For Aphakia) [facility] Fitting Monofocals (Not For Aphakia) 31126 SHAYAN RODRIGUEZ Determination Of Refractive State Determination Of Refractive State 24756 SHAYAN RODRIGUEZ Ophthalmological New Patient Start Comprehensive Care Ophthalmological New Patient Start Comprehensive Care 01717 SHAYAN RODRIGUEZ Vaccines Viral Varicella (Active) Vaccines Viral Varicella (Active) 84643 CARLY KWON Vaccines Viral Measles, Mumps and Rubella, Live Vaccines Viral Measles, Mumps and Rubella, Live 59815 CARLY KWON Immunization Administration Each Additional Vaccine Immunization Administration Each Additional Vaccine 97662 CARLY KWON Immunization Administration One Vaccine Immunization Administration One Vaccine 79504 CARLY KWON Influenza Split Virus Vaccine Age 3+ Years Intramuscular MARY BARBOSA Immunization Administration One Vaccine Immunization Administration One Vaccine [address] Supervised Injection Intramuscular Antibiotic Supervised Injection Intramuscular Antibiotic 80473 YUSUF VELAZQUEZ [facility] Injection, penicillin g benzathine, 100,000 units YUSUF VELAZQUEZ Visit for an IM injection of 1.2 million/units per 2 mL of Bicillin L-A (Penicillin G Benxathine injectable suspension). Was given in the Left upper quadrant, left buttock. Patient was observed for 15 min with no adverse reactions. [facility] Vaccines Adenovirus Type 7 Live, For Oral Use Vaccines Adenovirus Type 7 Live, For Oral Use 08752 YUSUF VELAZQUEZ A single vaccine dose administered orally. [facility] Vaccines Adenovirus Type 4 Live, For Oral Use Vaccines Adenovirus Type 4 Live, For Oral Use 84492 YUSUF VELAZQUEZ A single vaccine dose administered orally. DoD Immunization Admin Intranasal / Oral Each Additional Vaccine Immunization Admin Intranasal / Oral Each Additional Vaccine 93127 YUSUF VELAZQUEZ DoD Hep B Vaccine (Active); Adolescent (2 Dose Schedule) Hep B Vaccine (Active); Adolescent (2 Dose Schedule) 24504 YUSUF VELAZQUEZ Visit for an IM injection of 0.5mL of Hepatitis B (Engerix-B) pediatric dose. Was given in the Right Deltoid. Patient was observed for 15 min with no adverse reactions. DoD Vaccines Viral Varicella (Active) Vaccines Viral Varicella (Active) 01169 YUSUF VELAZQUEZ Visit for a SQ injection of 0.5mL of Varicella. Was given in the Right Tricep. Patient was observed for 15 min with no adverse reactions. DoD Vaccines Viral Measles, Mumps and Rubella, Live Vaccines Viral Measles, Mumps and Rubella, Live 42133 YUSUF VELAZQUEZ Visit for a SQ injection of 0.5mL of MMR (Measles, Mumps, and Rubella). Was given in the Right Tricep. Patient was observed for 15 min with no adverse reactions DoD Vaccines Viral Polio, Inactivated (Salk) Vaccines Viral Polio, Inactivated (Salk) 99265 YUSUF VELAZQUEZ Visit for an IM injection of 0.5mL of IPOL (Poliovirus Vaccine Inactivated). Was given in the Right Deltoid. Patient was observed for 15 min with no adverse reactions. DoD Meningococcal Polysacch Diphtheria Toxoid Conjugate Vaccine YUSUF VELAZQUEZ Visit for an IM injection of 0.5mL of Meningococcal Vaccine (Menactra). Was given in the Left Deltoid. Patient was observed for 15 min with no adverse reactions. DoD Tdap Vaccine Tdap Vaccine 70556 YUSUF VELAZQUEZ Visit for an IM injection of 0.5mL of Boostrix (Tetanus and Diphtheria Toxoids and Acellular Pertussis). Was given in the Right Deltoid. Patient was observed for 15 min with no adverse reactions. DoD Immunization Administration One Vaccine Immunization Administration One Vaccine 65052 YUSUF VELAZQUEZ [facility] Immunization Administration Each Additional Vaccine Immunization Administration Each Additional Vaccine 80043 YUSUF VELAZQUEZ [facility] Spectacles Services Fitting Monofocals (Not For Aphakia) [facility] Fitting Monofocals (Not For Aphakia) 04931 SHAUNA AWAN CHINYERE 42/24 M40 50/24 5A 48/22 [facility] Ear Protector Attenuation Measurements Ear Protector Attenuation Measurements 29415 LISET GARIBAY [facility] Threshold Audiogram (Pure Tone) Automated Threshold Audiogram (Pure Tone) Automated 0208T LISET GARIBAY [facility] -Supervised Services Provision Of Special Supplies -Supervised Services Provision Of Special Supplies 56055 LISET GARIBAY [facility] Social History Combined list of available smoking, tobacco, and other social history from Department of Defense and Veterans Affairs facilities. Social History Type Response Date Comment Sour e Tobacco smoking status [place] [facility]-TOBACCO NEVER USED CIGARETTES 04/14/2024 [facility] History of tobacco use MA-TOBACCO NEVER USED OTHER TYPE 04/14/2024 [facility] History of tobacco use VA-TOBACCO NEVER USED 03/18/2023 [facility] D History of tobacco use VA-TOBACCO NEVER USED 04/09/2022 [facility] D History of tobacco use VA-TOBACCO FORMER USER 04/05/2021 [facility] [place] [facility] History of tobacco use VA-TOBACCO NEVER USED 06/30/2019 [facility] D This section is an empty social history section. [facility] Plan of Care List of future care activities from Department of Veterans Affairs facilities. Additional future care activities may be listed in the Assessment and Plan section. Date/Time Care Activity Care Activity Detail Facili ty 07/22/2024 AMBULATORY - MEDICINE AMBULATORY - MEDICI NE [facility] [place] [facility]
--- OUTSIDE RECORDS SUMMARY | 2024-07-21 08:20 | XMS_ITS | Encounter Summary ---
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 Date/Time Encounter Type Encounter Description Reason Provider Source Apr 14, 2024 01:00 PM OFFICE O/P EST MOD 30 MIN PRIMARY CARE/MEDICINE ICD-10-CM J06.9 Acute upper respiratory infection, unspecified JAYCEE TARIQ Luisa Encounter Template Text not used by MD Assessments - Encounter Diagnoses This section includes the primary and secondary diagnoses documented for the Encounter. Date/Time Primary/Secondary Diagnosis Diagnosis Name Provider Source Apr 18, 2024 09:55 AM PRIMARY Acute upper respiratory infection, unspecified MAK TARIQ [facility] Apr 18, 2024 09:55 AM SECONDARY Pain in left knee MAK TARIQ [facility] Apr 18, 2024 09:55 AM SECONDARY Pain in right hip MAK TARIQ IR[facility] Apr 18, 2024 09:55 AM SECONDARY Pain in right knee MAK TARIQ IR[facility] Apr 18, 2024 09:55 AM SECONDARY Tinea pedis MAK TARIQ IRMO Plan of Treatment: Future Appointments (+ 6 months) and Future Tests (+/- 45 days) The Plan of Treatment section includes future care activities for the patient from all [facility] treatmentfacilities. This section includes future appointments and future orders which are active, pending or scheduled. Future Appointments This section includes appointments that were scheduled to occur 6 months from the date of the Encounter, up to a maximum of 20 appointments. The data comes from all [facility]. Appointment Date/Time Appointment Type Appointme nt Facility Name Apr 22, 2024 10:30 AM AMBULATORY - PSYCHIATRY [facility] Apr 26, 2024 11:30 AM AMBULATORY - PSYCHIATRY [facility] [place] [facility] Apr 29, 2024 08:00 AM AMBULATORY - MEDICINE [facility] [place] [facility] May 27, 2024 11:30 AM AMBULATORY - PSYCHIATRY [facility] [place] [facility] Jun 02, 2024 10:15 AM AMBULATORY - MEDICINE [facility] [place] [facility] Jun 22, 2024 11:30 AM AMBULATORY - PSYCHIATRY [facility] [place] [facility] Jul 22, 2024 12:20 PM [facility] Active, Pending, and Scheduled Orders This section includes a listing of several types of active, pending, and scheduled orders, including clinic medications orders, diagnostic test orders, procedure orders and consult orders; where the start date of the order is 45 days before the date of the Encounter or 45 days after the date of theEncounter. The data comes from all [facility]. Test Date/Time Test Type Test Details Facility Name May 18, 2024 10:18 AM Consult Order [facility]GICAL Cons Classified Copy Control Clerk's Choice [facility] Lab Results: +/- 30 days of the encounter This section includes the Chemistry and Hematology Lab Results on record with MD for the patient. Radiology Reports and Pathology Reports are provided separately, in subsequent sections. Lab Results This section contains the Chemistry/Hematology Results that were resulted 30 days before or 30 daysafter the date of the Encounter. Date/Time Source Result Type Result - Unit Interpretation Reference Range Specimen Type Comment May 04, 2024 02:38 PM IR[facility] SEMEN ANALYSIS,FERTILITY (FHI) SEMINAL FLUID Specimen Type: SEMINAL FLUID No comment entered. Ordering Provider: MAK TARIQ Report Released Date/Time: Apr 18, 2024 09:55 AM Reporting Lab: [address] [address] Performing Lab: [address] [address] SEMEN ANALYSIS,FERTILITY (FHI) SEE LIZBETH Justice Apr 14, 2024 01:50 PM IR[facility] CBC AND DIFF (AUTO) BLOOD Specimen Ty pe: BLOOD No comment entered. Ordering Provider: MAK TRAIQ Report Released Date/Time: Apr 14, 2024 01:26 PM Reporting Lab: [facility] [address] [facility] [address] Performing Lab: [facility] [address] [address] WBC 10.70 10*3/uL 4.50-11.00 RBC 4.73 10*6/uL [...] 10*3/uL 0.00-0.00 Apr 14, 2024 01:16 PM IRMO COVID-19 FLU/RSV DIAGNOSTIC PANEL NASOPHARYNX Specimen Type: NASOPHARYNX Comment: This test is authorized for emergency use only. False negative results may occur if virus is present at levels below the analytical limit of detection.Negative results do not preclude SARS-CoV-2, influenza or RSV infection and should not be used as the sole basis for treatment or other patient management decisions.Cepheid FLUVID: HCPs: https://www.fda.gov/media/477115/download. Patients: https://www.fda.gov/media/581508/download Ordering Provider: MAK TARIQ Report Released Date/Time: Apr 14, 2024 01:05 PM Reporting Lab: [address] [address] Performing Lab: [address] [address] COVID-19 PCR (FLUVID) NEGATIVE NEGATIVE FLU A PCR (FLUVID) NEGATIVE FLU B PCR (FLUVID) NEGATIVE RSV PCR (FLUVID) NEGATIVE Apr 08, 2024 10:18 AM [facility] URINALYSIS URINE Specimen Type: URINE Comment: If Glucose = >500 and Ketones are positive, please alert the Physician. Ordering Provider: CLEO HOPKINS Report Released Date/Time: Mar 30, 2024 10:57 AM Reporting Lab: [address] [address] Performing Lab: [address] [address] UA COLOR Light-Yellow Yellow UA APPEARANCE Clear Clear UA GLUCOSE Normal mg/dL Negative UA KETONES NEGATIVE mg/dL Negative UA BLOOD NEGATIVE mg/dL Negative UA PROTEIN 10 mg/dL Negative UA NITRITE NEGATIVE mg/dL Negative UA BILIRUBIN NEGATIVE mg/dL Negative UA SPECIFIC GRAVITY 1.019 1.016-1.022 UA pH 6.5 5.0-9.0 UA UROBILINOGEN Normal mg/dL <2.0 UA LEUKOCYTE NEGATIVE Negative Apr 08, 2024 10:08 AM [facility] TSH SERUM Specimen Type: SERUM No comment entered. Ordering Provider: CLEO HOPKINS Report Released Date/Time: Apr 15, 2023 03:54 PM Reporting Lab: [facility] [address] [facility] [address] Performing Lab: [facility] [address] [facility] [address] TSH 1.08 u[IU]/mL 0.35-5.00 Apr 08, 2024 10:08 AM [facility] BASIC METABOLIC PANEL (fasting) SERUM Specime n Type: SERUM No comment entered. Ordering Provider: CLEO HOPKINS Report Released Date/Time: Apr 15, 2023 03:54 PM Reporting Lab: [facility] [address] [facility] [address] Performing Lab: [address] [address] UREA NITROGEN 16 mg/dL 7-25 GLUCOSE 94 mg/dL 65-100 SODIUM 139 mmol/L 135-145 POTASSIUM 4.1 mmol/L 3.5-5.0 CHLORIDE 106 mmol/L 100-110 CO2 25 meq/L 20-30 CREATININE, Serum 1.17 mg/dL 0.50-1.40 eGFR(CKD-EPI 2020) 87 mL/min >60 Apr 08, 2024 10:08 AM [facility] LIPID PANEL FASTING SERUM Specimen Type: SERU M No comment entered. Ordering Provider: CLEO HOPKINS Report Released Date/Time: Apr 15, 2023 03:54 PM Reporting Lab: [address] [address] Performing Lab: [address] [address] CHOLESTEROL 146 mg/dL TRIGLYCERIDE 103 mg/dL 0-150 LDL calculated 87 mg/dL 0-129 CHOL/HDL 3.8 HDL CHOLESTEROL 38 mg/dL L 40-60 Apr 08, 2024 10:08 AM [facility] LIVER FUNCTION SERUM Specimen Type: SERUM No comment entered. Ordering Provider: CLEO HOPKINS Report Released Date/Time: Apr 15, 2023 03:54 PM Reporting Lab: [address] [address] Performing Lab: [facility] [address] [facility] [address] PROTEIN,TOTAL 7.4 g/dL 6.0-8.3 ALBUMIN 4.5 g/dL 3.5-5.0 ALKALINE PHOSPHATASE 67 U/L 40-150 AST 20 U/L 5-34 ALT 47 U/L BILIRUBIN, TOTAL 0.7 mg/dL 0.2-1.2 Apr 08, 2024 10:08 AM [facility] HEMOGLOBIN A1C PANEL BLOOD Specimen Type: BLO [...] Apr 15, 2023 03:54 PM Reporting Lab: [facility] [address] [facility] [address] Performing Lab: [address] [address] HEMOGLOBIN A1C 5.0 4.0-5.6 Apr 08, 2024 10:08 AM [facility] CBC AND DIFF (AUTO) BLOOD Specimen Type: BLOO D No comment entered. Ordering Provider: CLEO HOPKINS Report Released Date/Time: Apr 15, 2023 03:54 PM Reporting Lab: [facility] [address] [facility] [address] Performing Lab: [address] [address] WBC 12.14 10*3/uL H 4.50-11.00 RBC 5.20 [...] 0.0 0.0-0.0 NRBC, ABS 0.00 10*3/uL 0.00-0.00 Vital Signs: All taken on the encounter date This section contains inpatient and outpatient Vital Signs collected on the date of the Encounter. Date/Time Temperature Pulse Blood Pressure Respiratory Rate SP02 Pain Height Weight Body Mass Index Source Apr 14, 2024 01:15 PM 96 65 20 99 1 70 234 34 [facility] Social History: Smoking Status (Most current) and Tobacco Use (All prior to encounter date) This section includes the most current, and the historical, smoking and tobacco- related health factors from the MD facility where the Encounter took place. Current Smoking Status This section includes the most current smoking, or tobacco-related health factor, from the MD facility where the Encounter took place. Date/Time Current Smoking Status Comment Akanksha willingham Apr 14, 2024 01:00 PM VA-TOBACCO NEVER USED CIGARETTES [facility] Tobacco Use History This section includes a history of the smoking, or tobacco-related health factors, that were collected on or before the date of the Encounter. The data comes from the MD facility where the Encounter took place. Date/Time Smoking Status/Tobacco Use Comment F acjoe Apr 14, 2024 01:00 PM VA-TOBACCO NEVER USED OTHER TYPE [facility] Mar 18, 2023 03:30 PM VA-TOBACCO NEVER USED [facility] Apr 09, 2022 09:00 AM VA-TOBACCO NEVER USED [facility] Jun 30, 2019 11:33 AM VA-TOBACCO NEVER USED [facility] Radiology Reports: +/- 30 days of the [...] the Encounter. The data comes from all MD treatment facilities. 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) Img Loc: [facility]/BUILDING 1 Service: [place] [address] THIS IS AN AMENDED REPORT (Case [id number] COMPLETE) HIP 2-3 VIEWS (RIGHT) WITH OR WIT(RAD Detailed) CPT:98592 CPT Modifiers : RT RIGHT SIDE Reason for Study: Right hip pain Clinical History: Report Status: Verified Date Reported: MAY 18, 2024 Date Verified: MAY 18, 2024 Ordnance Handler E-Sig:/ES/LATIA DODSON JR Report: Study: AP weight-bearing [...] Primary Interpreting Staff: LATIA DODSON JR, Radiologist (Ordnance Handler) /LATIA NEAL JR [facility] May 04, 2024 01:59 PM KNEE 3 VIEWS (LEFT): AYESHA NEAL RAUL [id number] -1995 M Exm Date: MAY 04, 2024@13:59 Req Phys: MAK TARIQ Loc: CWM/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 Img Loc: [facility] 1 Service: [place] [address] (Case 223 COMPLETE) KNEE 3 VIEWS (LEFT) (RAD Detailed) CPT:72855 Reason for Study: left knee pain Clinical History: Report Status: Verified Date Reported: MAY 04, 2024 Date Verified: MAY 04, 2024 Ordnance Handler E-Sig:/ES/LATIA DODSON JR Report: Study: AP weight-bearing [...] Primary Interpreting Staff: LATIA DODSON JR, Radiologist (Ordnance Handler) /LATIA NEAL JR [facility] Encounter Notes: All associated encounter notes This section contains the clinical notes associated to the Encounter. Date/Time Encounter Note(s) Provider Source May 18, 2024 12:09 PM ADDENDUM: LOCAL TITLE: Addendum STANDARD TITLE: ADDENDUM DATE OF NOTE: MAY 18, 2024@12:09:29 ENTRY DATE: MAY 18, 2024@12:09:30 AUTHOR: SUSY ESTRADA EXP COSIGNER: URGENCY: STATUS: COMPLETED Semen lab results were placed in providers right fax folder under provider to review. /JEAN MARIE Rosales,RN-BC REGISTERED NURSE (RN) Signed: 05/18/2024 12:10 Receipt Acknowledged By: 06/22/2024 09:44 /theodore/ MAK TARIQ NP NURSE PRACTITIONER --- Original Document --- 04/14/24 NURSE PRACTITIONER OUTPATIENT NOTE: CC Presents today for routine follow up and URI sx HPI This is a 29 y/o male with history of Active problems - Computerized Problem List is the source for the followin. Family history of malignant neoplasm Maternal uncle with colon cancer dx in his 30's 2. FH: Crohn's disease sister 3. Right knee pain May 2023 MRI RIGHT knee: Bucket-handle tear of the lateral meniscus. NEOS July 2023 surgery 4. Obstructive sleep apnea 5. Chronic post-traumatic stress disorder following combat 6. Attention deficit hyperactivity disorder, combined type 7. Liver function tests abnormal 01/2020 mild isolated ALT abnormality (70) NS to liver u/s 05/2021 8. Family history of diabetes mellitus father 9. Overweight 10. Chronic back pain 11. Urine chlamydia trachomatis test positive 01/2020 - tx'ed Denies any recent fever, chills, cough, chest pain, sob, dizziness. No recent UC visits or hospitalizations Went to [place] for the weekend. 4 days of congestion. Had fever last with green/yellow mucous. + cough. Right eye with redness and discharge. Ears feel congested. + sore throat, though improving. No sick contacts. He flew to [place] on Friday and returned one hour ago. It was his great aunt's bday. Reports R knee bucket handle tear of lateral meniscus, along with arthritis. Seen by Larry, now having pain in Left knee. Both knees swell up. He works at [employer], on feet daily. He also gets right hip pain, carries stachel for work. ALLERGIES Data on this list may not be complete. Please check JLV. FACILITY ALLERGY/ADR -------- No Remote Allergy/ADR Data available for this patient [facility] [place] [facility] No Known Allergies MEDICATIONS: Active and Recently Outpatient Medications (excluding Supplies): Inactive Outpatient Medications Status 1) ESCITALOPRAM OXALATE 10MG TAB TAKE ONE TABLET BY MOUTH ONCE DAILY FOR MOOD/DEPRESSION Indication: FOR REPEATED EPISODES OF ANXIETY 2) OMEPRAZOLE 20MG EC CAP TAKE ONE CAPSULE BY MOUTH EVERY MORNING 30 MINUTES BEFORE BREAKFAST Indication: FOR EXCESSIVE PRODUCTION OF STOMACH ACID 3) SILDENAFIL CITRATE 100MG TAB TAKE ONE TABLET BY MOUTH ONCE DAILY NEEDED TAKE 1 HOUR PRIOR TO SEXUAL ACTIVITY Indication: FOR ERECTILE DYSFUNCTION 4) TRAZODONE HCL 100MG TAB TAKE ONE-HALF TO ONE TABLET BY MOUTH AT BEDTIME NEEDED Indication: FOR INSOMNIA ASSOCIATED WITH DEPRESSION SOCIAL HISTORY Tobacco former smoker x 3 years 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, 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 Drugs denies ROS HEENT: see above RESP denies SOB CV denies CP, LL Edema GI denies abd pain, hematochezia denies hematuria, nocturia ENDO denies increased thirst, hunger or urination PE General: NAD HEENT PERRLA, EOMIs, B/L intact TMs,no lymphadenopathy, no lesions/exudate of posteriorpharynx, tongue midline without lesions RESP clear to auscultation bilaterally CV RR S1 S2 (-) Pedal Edema Bilateral knees without edema or erythema, FROM + crepitus on Left; Right hip FROM but tender with external rotation GI BS + x 4, soft, nontender, nondistended, no rebound or guarding NEURO CN II-XII without focal deficit, gait steady without shuffle, MENTAL A&Ox3 Appropriate, Pleasant, Cooperative VITALS 96.9 F [36.1 C] (06/10/2023 10:39) 63 (06/10/2023 10:39) 20 (04/15/2023 15:13) 127/80 (06/10/2023 10:39) 4 (04/15/2023 15:13) 70 in [177.8 cm] (04/15/2023 15:13) 220 lb [99.79 kg] (06/10/2023 10:39) BMI: 31.6 A/P Bilateral knee pain -check xray, consult to Ortho Tinea Pedis (Right foot) will trial clotrimazole x 7 days, keep feet open to air when home, dry thoroughly after shower Rhip pain -check xray -consider PT vs ortho vs med rehab URI sx no evidence of PNA, strep or other bacterial illness -quad swab today, supportive care, maintain hydration Has been trying to become with partner for 1 year,she had an infertility work up and was told all is ok, now he needs eval. Will order semen analysis /theodore/ MAK TARIQ NP NURSE PRACTITIONER Signed: 04/18/2024 09:56 04/18/2024 ADDENDUM STATUS: COMPLETED Please let vet know semen analysis was ordered. He will need to go to the lab for instructions and to waste picker container. He can present to the lab when he is [place] for xrays. Thanks /briseyda TARIQ NP NURSE PRACTITIONER Signed: 04/18/2024 09:57 Receipt Acknowledged By: 04/20/2024 09:11 /JEAN MARIE Rosales,RN-BC REGISTERED NURSE (RN) 04/18/2024 ADDENDUM STATUS: COMPLETED URI sx, vet reported feeling much better than 2-3 days prior. Advised rest, maintain good hydration, apap.ibuprofen prn. If any worsening or new sx, contact us/UC/ED. Vet was in agreement /briseyda TARIQ NP NURSE PRACTITIONER Signed: 04/18/2024 09:59 04/20/2024 ADDENDUM STATUS: COMPLETED Called and relayed providers message. /JEAN MARIE Rosales,RN-BC REGISTERED NURSE (RN) Signed: 04/20/2024 09:11 SUSY ESTRADA IRMO Apr 18, 2024 09:56 AM ADDENDUM: LOCAL TITLE: Addendum STANDARD TITLE: ADDENDUM DATE OF NOTE: APR 18, 2024@09:56:30 ENTRY DATE: APR 18, 2024@09:56:31 AUTHOR: MAK TARIQ COSIGNER: URGENCY: STATUS: COMPLETED Please let vet know semen analysis was ordered. He will need to go to the lab for instructions and to waste picker container. He can present to the lab when he is [place] for xrays. Thanks /briseyda TARIQ NP NURSE PRACTITIONER Signed: 04/18/2024 09:57 Receipt Acknowledged By: 04/20/2024 09:11 /JEAN MARIE Rosales,RN-BC REGISTERED NURSE (RN) --- Original Document --- 04/14/24 NURSE PRACTITIONER OUTPATIENT NOTE: CC Presents today for routine follow up and URI sx HPI This is a 29 y/o male with history of Active problems - Computerized Problem List is the source for the followin. Family history of malignant neoplasm Maternal uncle with colon cancer dx in his 30's 2. FH: Crohn's disease sister 3. Right knee pain May 2023 MRI RIGHT knee: Bucket-handle tear of the lateral meniscus. LARRY July 2023 surgery 4. Obstructive sleep apnea 5. Chronic post-traumatic stress disorder following combat 6. Attention deficit hyperactivity disorder, combined type 7. Liver function tests abnormal 01/2020 mild isolated ALT abnormality (70) NS to liver u/s 05/2021 8. Family history of diabetes mellitus father 9. Overweight 10. Chronic back pain 11. Urine chlamydia trachomatis test positive 01/2020 - tx'ed Denies any recent fever, chills, cough, chest pain, sob, dizziness. No recent UC visits or hospitalizations Went to [place] for the weekend. 4 days of congestion. Had fever last with green/yellow mucous. + cough. Right eye with redness and discharge. Ears feel congested. + sore throat, though improving. No sick contacts. He flew to [place] on Friday and returned one hour ago. It was his great aunt's th bday. Reports R knee bucket handle tear of lateral meniscus, along with arthritis. Seen by Larry, now having pain in Left knee. Both knees swell up. He works at [employer], on feet daily. He also gets right hip pain, carries stachel for work. ALLERGIES Data on this list may not be complete. Please check JLV. FACILITY ALLERGY/ADR -------- No Remote Allergy/ADR Data available for this patient [facility] [place] No Known Allergies MEDICATIONS: Active and Recently Outpatient Medications (excluding Supplies): Inactive Outpatient Medications Status 1) ESCITALOPRAM OXALATE 10MG TAB TAKE ONE TABLET BY MOUTH ONCE DAILY FOR MOOD/DEPRESSION Indication: FOR REPEATED EPISODES OF ANXIETY 2) OMEPRAZOLE 20MG EC CAP TAKE ONE CAPSULE BY MOUTH EVERY MORNING 30 MINUTES BEFORE BREAKFAST Indication: FOR EXCESSIVE PRODUCTION OF STOMACH ACID 3) SILDENAFIL CITRATE 100MG TAB TAKE ONE TABLET BY MOUTH ONCE DAILY NEEDED TAKE 1 HOUR PRIOR TO SEXUAL ACTIVITY Indication: FOR ERECTILE DYSFUNCTION 4) TRAZODONE HCL 100MG TAB TAKE ONE-HALF TO ONE TABLET BY MOUTH AT BEDTIME NEEDED Indication: FOR INSOMNIA ASSOCIATED WITH DEPRESSION SOCIAL HISTORY Tobacco former smoker x 3 years 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, 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 Drugs denies ROS HEENT: see above RESP denies SOB CV denies CP, LL Edema GI denies abd pain, hematochezia denies hematuria, nocturia ENDO denies increased thirst, hunger or urination PE General: NAD HEENT PERRLA, EOMIs, B/L intact TMs,no lymphadenopathy, no lesions/exudate of posteriorpharynx, tongue midline without lesions RESP clear to auscultation bilaterally CV RR S1 S2 (-) Pedal Edema Bilateral knees without edema or erythema, FROM + crepitus on Left; Right hip FROM but tender with external rotation GI BS + x 4, soft, nontender, nondistended, no rebound or guarding NEURO CN II-XII without focal deficit, gait steady without shuffle, MENTAL A&Ox3 Appropriate, Pleasant, Cooperative VITALS 96.9 F [36.1 C] (06/10/2023 10:39) 63 (06/10/2023 10:39) 20 (04/15/2023 15:13) 127/80 (06/10/2023 10:39) 4 (04/15/2023 15:13) 70 in [177.8 cm] (04/15/2023 15:13) 220 lb [99.79 kg] (06/10/2023 10:39) BMI: 31.6 A/P Bilateral knee pain -check xray, consult to Ortho Tinea Pedis (Right foot) will trial clotrimazole x 7 days, keep feet open to air when home, dry thoroughly after shower Rhip pain -check xray -consider PT vs ortho vs med rehab URI sx no evidence of PNA, strep or other bacterial illness -quad swab today, supportive care, maintain hydration Has been trying to become with partner for 1 year,she had an infertility work up and was told all is ok, now he needs eval. Will order semen analysis /theodore/ MAK TARIQ NP NURSE PRACTITIONER Signed: 04/18/2024 09:56 04/18/2024 ADDENDUM STATUS: COMPLETED URI sx, vet reported feeling much better than 2-3 days prior. Advised rest, maintain good hydration, apap.ibuprofen prn. If any worsening or new sx, contact us/UC/ED. Vet was in agreement /theodore/ MAK TARIQ NP NURSE PRACTITIONER Signed: 04/18/2024 09:59 04/20/2024 ADDENDUM STATUS: UNSIGNED You may not VIEW this UNSIGNED Addendum. MAK TARIQ Apr 14, 2024 01:16 PM PREVENTIVE MEDICIN E NURSING NOTE: LOCAL TITLE: CLINICAL REMINDERS/NURSING STANDARD TITLE: PREVENTIVE MEDICINE NURSING NOTE DATE OF NOTE: APR 14, 2024@13:16 ENTRY DATE: APR 14, 2024@13:16:16 AUTHOR: JERROD POOLE EXP COSIGNER: URGENCY: STATUS: COMPLETED Advance Directive Screen MH AD: Patient does not have a completed advance directive on file at any facility, [facility] or outside. S/he is not interested in completing one at this time. The patient received education about Advance Directives and written notification of his/her rights. BMI>30/>24.99 High Risk: Patient declines to discuss weight management. Patient declined weight discussion. Discussed revisiting at a future visit. Depression Screening: Perform PHQ-2 A PHQ-2 screen was performed. The score was 0 which is a negative screen for depression. Over the past two weeks, how often have you been bothered by the following problems? 1. Little interest or pleasure in doing things Not at all 2. Feeling down, depressed, or hopeless Not at all Tobacco Use Screening: The patient has never smoked cigarettes. The patient has never used other types of tobacco. Influenza Immunization: Deferral / Refusal The patient declines to receive the recommended dose of seasonal influenza vaccine. Immunization: INFLUENZA, UNSPECIFIED FORMULATION Refusal Reason: PATIENT DECISION Patient refuses all immunization(s) in the FLU group Date Documented: 04/14/24 13:16 Alcohol Use Screen (AUDIT-C): Alcohol Screen: SCREEN FOR ALCOHOL (AUDIT-C) An alcohol screening test (AUDIT-C) was negative (score=0). 1. How often did you have a drink containing alcohol in the past year? Consider a drink to be a 12 ounce can or bottle of regular beer, 8 ounces of malt liquor, a 5 ounce glass of table wine, or a 1.5 ounce shot of liquor (like scotch, gin, or vodka). Never 2. How many drinks containing alcohol did you have on a typical day when you were drinking in the past year? Response not required due to responses to other questions. 3. How often did you have six or more drinks on one occasion in the past year? Response not required due to responses to other questions. Sexual Orientation: The patient thinks of their sexual orientation as: Straight or Heterosexual COVID-19 Immunization: Refused Moderna Monovalent COVID-19 vaccine Immunization: COVID-19 (MODERNA), MRNA, LNP-S, PF, 50 MCG/0.5 ML (AGES 12+ YEARS) Refusal Reason: PATIENT DECISION Patient refuses all immunization(s) in the COVID-19 group Date Documented: 04/14/24 13:17 /theodore/ JERROD POOLE LPN LPN Signed: 04/14/2024 13:17 JERROD POOLE Apr 14, 2024 01:04 PM PRIMARY CARE NURSE PRACTITIONER OUTPATIENT NOTE: LOCAL TITLE: NURSE PRACTITIONER OUTPATIENT NOTE STANDARD TITLE: PRIMARY CARE NURSE PRACTITIONER OUTPATIENT NOTE DATE OF NOTE: APR 14, 2024@13:04 ENTRY DATE: APR 14, 2024@13:04:20 AUTHOR: MAK TARIQ COSIGNER: URGENCY: STATUS: COMPLETED NURSE PRACTITIONER OUTPATIENT NOTE Has ADDENDA CC Presents today for routine follow up and URI sx HPI This is a 29 y/o male with history of Active problems - Computerized Problem List is the source for the followin. Family history of malignant neoplasm Maternal uncle with colon cancer dx in his 30's 2. FH: Crohn's disease sister 3. Right knee pain May 2023 MRI RIGHT knee: Bucket-handle tear of the lateral meniscus. LARRY July 2023 surgery 4. Obstructive sleep apnea 5. Chronic post-traumatic stress disorder following combat 6. Attention deficit hyperactivity disorder, combined type 7. Liver function tests abnormal 01/2020 mild isolated ALT abnormality (70) NS to liver u/s 05/2021 8. Family history of diabetes mellitus father 9. Overweight 10. Chronic back pain 11. Urine chlamydia trachomatis test positive 01/2020 - tx'ed Denies any recent fever, chills, cough, chest pain, sob, dizziness. No recent UC visits or hospitalizations Went to [place] for the weekend. 4 days of congestion. Had fever last with green/yellow mucous. + cough. Right eye with redness and discharge. Ears feel congested. + sore throat, though improving. No sick contacts. He flew to [place] on Friday and returned one hour ago. It was his great aunt's bday. Reports R knee bucket handle tear of lateral meniscus, along with arthritis. Seen by Larry, now having pain in Left knee. Both knees swell up. He works at [employer], on feet daily. He also gets right hip pain, carries stachel for work. ALLERGIES Data on this list may not be complete. Please check [facility]. FACILITY ALLERGY/ADR -------- No Remote Allergy/ADR Data available for this patient [facility] [place] [facility] No Known Allergies MEDICATIONS: Active and Recently Outpatient Medications (excluding Supplies): Inactive Outpatient Medications Status 1) ESCITALOPRAM OXALATE 10MG TAB TAKE ONE TABLET BY MOUTH ONCE DAILY FOR MOOD/DEPRESSION Indication: FOR REPEATED EPISODES OF ANXIETY 2) OMEPRAZOLE 20MG EC CAP TAKE ONE CAPSULE BY MOUTH EVERY MORNING 30 MINUTES BEFORE BREAKFAST Indication: FOR EXCESSIVE PRODUCTION OF STOMACH ACID 3) SILDENAFIL CITRATE 100MG TAB TAKE ONE TABLET BY MOUTH ONCE DAILY NEEDED TAKE 1 HOUR PRIOR TO SEXUAL ACTIVITY Indication: FOR ERECTILE DYSFUNCTION 4) TRAZODONE HCL 100MG TAB TAKE ONE-HALF TO ONE TABLET BY MOUTH AT BEDTIME NEEDED Indication: FOR INSOMNIA ASSOCIATED WITH DEPRESSION SOCIAL HISTORY Tobacco former smoker x 3 years 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, 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 Drugs denies ROS HEENT: see above RESP denies SOB CV denies CP, LL Edema GI denies abd pain, hematochezia denies hematuria, nocturia ENDO denies increased thirst, hunger or urination PE General: NAD HEENT PERRLA, EOMIs, B/L intact TMs,no lymphadenopathy, no lesions/exudate of posteriorpharynx, tongue midline without lesions RESP clear to auscultation bilaterally CV RR S1 S2 (-) Pedal Edema Bilateral knees without edema or erythema, FROM + crepitus on Left; Right hip FROM but tender with external rotation GI BS + x 4, soft, nontender, nondistended, no rebound or guarding NEURO CN II-XII without focal deficit, gait steady without shuffle, MENTAL A&Ox3 Appropriate, Pleasant, Cooperative VITALS 96.9 F [36.1 C] (06/10/2023 10:39) 63 (06/10/2023 10:39) 20 (04/15/2023 15:13) 127/80 (06/10/2023 10:39) 4 (04/15/2023 15:13) 70 in [177.8 cm] (04/15/2023 15:13) 220 lb [99.79 kg] (06/10/2023 10:39) BMI: 31.6 A/P Bilateral knee pain -check xray, consult to Ortho Tinea Pedis (Right foot) will trial clotrimazole x 7 days, keep feet open to air when home, dry thoroughly after shower Rhip pain -check xray -consider PT vs ortho vs med rehab URI sx no evidence of PNA, strep or other bacterial illness -quad swab today, supportive care, maintain hydration Has been trying to become with partner for 1 year,she had an infertility work up and was told all is ok, now he needs eval. Will order semen analysis /briseyda TARIQ NP NURSE PRACTITIONER Signed: 04/18/2024 09:56 04/18/2024 ADDENDUM STATUS: COMPLETED Please let vet know semen analysis was ordered. He will need to go to the lab for instructions and to waste picker container. He can present to the lab when he is [place] for xrays. Thanks /briseyda TARIQ NP NURSE PRACTITIONER Signed: 04/18/2024 09:57 Receipt Acknowledged By: 04/20/2024 09:11 /JEAN MARIE Rosales,RN-BC REGISTERED NURSE (RN) 04/18/2024 ADDENDUM STATUS: COMPLETED URI sx, vet reported feeling much better than 2-3 days prior. Advised rest, maintain good hydration, apap.ibuprofen prn. If any worsening or new sx, contact us/UC/ED. Vet was in agreement /briseyda TARIQ NP NURSE PRACTITIONER Signed: 04/18/2024 09:59 04/20/2024 ADDENDUM STATUS: COMPLETED Called and relayed providers message. /JEAN MARIE Rosales,RN-BC REGISTERED NURSE (RN) Signed: 04/20/2024 09:11 05/18/2024 ADDENDUM STATUS: COMPLETED Semen lab results were placed in providers right fax folder under provider to review. /es/ CHERELLE HEATHN,RN-BC REGISTERED NURSE (RN) Signed: 05/18/2024 12:10 Receipt Acknowledged By: * AWAITING SIGNATURE * MAK TARIQ,MAK BRAN
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
--- OUTSIDE RECORDS SUMMARY | 2024-07-21 08:20 | XMS_ITS | Encounter Summary ---
Author Name [facility] [facility] [place] [facility] [place] Address [address] [place] [address] Care Team Providers Care Boat Patcher Plastic Name Role Phone MAK TARIQ Primary Care Provider [facility] Encounter This section includes the information on record at [place] for the Encounter. Date/Time Encounter Type Encounter Description Reason Provider Source Dec 18, 2023 08:00 AM THERAPEUTIC EXERCISES PHYSICAL THERAPY ICD-10-CM M25.561 Pain in right knee CHOLO KELLEY Encounter Template Text not used by [place] Assessments - Encounter Diagnoses This section includes the primary and secondary diagnoses documented for the Encounter. Date/Time Primary/Secondary Diagnosis Diagnosis Name Provider Source Dec 18, 2023 12:40 PM PRIMARY Pain in right knee DANIELA KELLEY Plan of Treatment: Future Appointments (+ 6 months) and Future Tests (+/- 45 days) The Plan of Treatment section includes future care activities for the patient from all [place] treatmentfacilities. This section includes future appointments and future orders which are active, pending or scheduled. Future Appointments This section includes appointments that were scheduled to occur 6 months from the date of the Encounter, up to a maximum of 20 appointments. The data comes from all [place] treatment facilities. Appointment Date/Time Appointment Type Appointme nt Facility Name Dec 25, 2023 08:00 AM [facility] Jan 08, 2024 08:00 AM [facility] Jan 15, 2024 08:00 AM [facility] Apr 06, 2024 11:30 AM AM[place]ORY [place] [facility] Apr 14, 2024 01:00 PM AMBULATORY - MEDICINE [facility] Apr 22, 2024 10:30 AM AMBULATORY - PSYCHIATRY [facility] Apr 26, 2024 11:30 AM AM[place]ORY [place] [facility] [place] [facility] Apr 29, 2024 08:00 AM AM[place]ORY [place] [facility] [place] [facility] May 27, 2024 11:30 AM [place]ORY [place] [facility] [place] [facility] Jun 02, 2024 10:15 AM AMBULATORY - MEDICINE [facility] [place] [facility] Social History: Smoking Status (Most current) and Tobacco Use (All prior to encounter date) This section includes the most current, and the historical, smoking and tobacco- related health factors from the [place] facility where the Encounter took place. Current Smoking Status This section includes the most current smoking, or tobacco-related health factor, from the [place] facility where the Encounter took place. Date/Time Current Smoking Status Comment Facil ity Mar 18, 2023 03:30 PM [place]-TOBACCO NEVER USED [facility] Tobacco Use History This section includes a history of the smoking, or tobacco-related health factors, that were collected on or before the date of the Encounter. The data comes from the [place] facility where the Encounter took place. Date/Time Smoking Status/Tobacco Use Comment F acility Apr 09, 2022 09:00 AM [place]-TO[place]ACCO NEVER USED [facility] Jun 30, 2019 11:33 AM [place]-TOBACCO NEVER USED [facility] Encounter Notes: All associated encounter notes This section contains the clinical notes associated to the Encounter. Date/Time Encounter Note(s) Provider Source Dec 18, 2023 12:29 PM PHYSICAL THERAPY N OTE: [facility] TITLE: PHYSICAL THERAPY STANDARD TITLE: PHYSICAL THERAPY NOTE DATE OF NOTE: DEC 18, 2023@12:29 ENTRY DATE: DEC 18, 2023@12:30:45 AUTHOR: DANIELA KELLEY EXP COSIGNER: URGENCY: STATUS: COMPLETED Initial Evaluation date: 12/02/23 Treatment #: 1 Treatment time: 30 mins Diagnosis: Pain in right Knee (ICD-10-CM M25.561) (Primary) Provider: Lorin SUBJECTIVE: States that he's having minimal discomfort lateral knee areas OBJECTIVE: THERAPEUTIC EXERCISE: MINUTES: 25 mins Nu-step 10 mins L5 HS, calf, quad S at the stairs Access Code: [email or web address] URL: [email or web address] Date: 12/18/2023 Prepared by: [facility] Exercises - Beginner Bridge - 1 x daily - 7 x weekly - 3 sets - 10 reps - Supine Bridge with Resistance Band - 1 x daily - 7 x weekly - 3 sets - 10 reps - Bridge with Arms at Sides and Feet on Hong Konger Ball - 1 x daily - 7 x weekly - 3 sets - 10 reps - Supine Bridge with Heels on Hong Konger Ball and Knees Bent - 1 x [...] weekly - 3 sets - 10 reps MANUAL THERAPY: MINUTES: 5 mins foam roller ITB in S/L GAIT TRAINING: MINUTES: NEUROMUSCULAR EDUCATION: MINUTES: OTHER: MINUTES: MODALITIES: MINUTES: [] Contraindication screen completed prior to modality [] Skin intact pre/post SELF CARE/EDUCATION: MINUTES: Patient education was provided for all aspects of care during this clinical encounter. ASSESSMENT: Tolerated session well, mm fatigue after session, but also feeling looser after the foam rolling. PLAN: Low impact aerobic exercise. Open chain hip and core stability exercises, especially focusing on the gluteal and hip abductor muscles. Quad and hamstring strengthening. Balance and proprioception training. Weight bearing and functional movement patterns as tolerated. Progress to dynamic single leg activities when capable and pain is managed. Modalities as needed. 1 time per week, 6 appointments scheduled. /theodore/ RINA MONTIEL LICENSE SPECIAL EDUCATION PRESCHOOL TEACHER Signed: 12/18/2023 12:41 DANIELA KELLEY [facility]
--- OUTSIDE RECORDS SUMMARY | 2024-07-21 08:20 | XMS_ITS | Clinical Summary ---
Author Organization [facility] ity Address [address] [place] [address] Care Team Providers Care Proof Plate Maker Name Role Phone Unavailable Primary Care Provider [...] Comments DTaP,Tdap,and Td Vaccines (1 - Tdap) 01/29/2015 Hepatitis B Vaccines (1 of 3 - 19+ 3-dose series) 01/29/2015 Depression Screening 04/25/2023 HIV Screening 04/25/2023 Hepatitis C Screening 04/25/2023 Social Influencers of Health Screening 04/25/2023 COVID-19 Vaccine ( - 2023-2 5 season) 2023 Influenza Vaccine (Season Ended) 2024 HIB Vaccines Aged Out No longer eligi [...] age to complete this topic Meningococcal B Vaccine Aged Out No l onger eligible based on patient's age to complete [...]
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
--- NOTE | 2024-07-21 10:15 | HO.ANESPROP2 ---
Documented by User: Larisa Poon NP 07/21/24 10:15 HPI - Anesthesia Eval Consult details Narrative: 29yo M for Upper Endoscopy and Colonoscopy PMF Active Problems Active Problems: All Active Problems Abnormal bowel habits (Acute) Past Medical History Medical History (Updated 07/21/24 @ 08:16 by Ericka Riley RN) Depression GERD (gastroesophageal reflux disease) Family History Family History (Updated 05/14/24 @ 09:23 by LESLIE Sawant) Maternal Grandfather Colon cancer Maternal Uncle Colon cancer Social History Social History Patient Tobacco Use Status: Never used Tobacco Use of substances other than those prescribed or required for medical reasons: No Substance Use Type Other:: gummies Are you DNR?: No Advance Directives: No Advance Directives Information Provided: Yes Meds Allergies Allergy/AdvReac Type Severity Reaction Status Date / Time pollen Allergy Unknown Unknown Uncoded 05/14/24 09:23 Home Medications ?Medication ?Instructions ?Recorded ?Confirmed ?Last Taken ?Type escitalopram oxalate 10 mg tablet 10 mg PO DAILY 05/14/24 Unknown History omeprazole 20 mg capsule,delayed 20 mg PO DAILY 05/14/24 Unknown History release trazodone 100 mg tablet 100 mg PO BEDTIME PRN 05/14/24 Unknown History Exam Height,Weight and Vital Signs: Height 5 ft 10 in Weight 101.605 kg Assessment and Plan Assessment Anesthesia Assessment: Chart Reviewed Documented by User: Zain Starks MD 07/22/24 11:42 PMFSH Past Medical History Medical History (Updated 07/21/24 @ 08:16 by Ericka Riley RN) Depression GERD (gastroesophageal reflux disease) Family History Family History (Updated 05/14/24 @ 09:23 by LESLIE Sawant) Maternal Grandfather Colon cancer Maternal Uncle Colon cancer Family history of problems with anesthesia: No Surgical History History of Problems with Anesthesia: No Social History Social History Patient Tobacco Use Status: Never used Tobacco Use of substances other than those prescribed or required for medical reasons: No Substance Use Type Other:: gummies Are you DNR?: No Advance Directives: No Advance Directives Information Provided: Yes Meds Allergies Allergy/AdvReac Type Severity Reaction Status Date / Time pollen Allergy Unknown Unknown Uncoded 05/14/24 09:23 Home Medications ?Medication ?Instructions ?Recorded ?Confirmed ?Last Taken ?Type escitalopram oxalate 10 mg tablet 10 mg PO DAILY 05/14/24 Unknown History omeprazole 20 mg capsule,delayed 20 mg PO DAILY 05/14/24 Unknown History release trazodone 100 mg tablet 100 mg PO BEDTIME PRN 05/14/24 Unknown History Exam Airway Mallampati Class: II TM Dist: >3cm Neck ROM: Full Loose/Missing/Broken Teeth: No Heart: ok Lungs: ok Assessment and Plan Assessment Anesthesia Assessment: Anesthesia Plan Discussed Final Anesthetic Review Family History of Problems with Anesthesia: No History of Problems with Anesthesia: No NPO: Yes ASA Class: II Final Preanesthetic Review: No Changes in Pt Med Stat, Meds/Allgs Chart Reviewed, Consent Obtained/Reviewed and Anes Risks/Benef Reviewed Patient Risk: Low Procedure Risk: Intermediate Anesthetic Plan Anesthetic Plan: Agree w/ Assess. and Plan and TIVA Disposition: Standard PACU
--- NOTE | 2024-07-22 11:27 | P.HPSUR_ITS ---
Pre-Procedural Eval Section A - 24 Hr Update-Section A only Date of Service: 07/22/24 Section B - Complete if H&P > 30 days Chief Complaint: Other specified symptoms and signs involving the Relevant Family History (Specify if Yes): Yes Relevant Social History: Other (specify) (thc) Present Medications: see Short Stay Collaborative assessment Medical History: Significant History (GERD insomnia PTSD) History of Previous Operations: Relevant previous surgery/procedure and date(s) (knee surgery) Allergies: Allergies Allergy/AdvReac Type Severity Reaction Status Date / Time pollen Allergy Unknown Unknown Uncoded 05/14/24 09:23 Review of Systems Sugical H&P ROS: Negative: Constitution, Cardiovascular, Respiratory, Neurological, Psychiatric, Hem-Onc, Allergic/Immunologic, Gastrointestinal, Genitourinary, Musculoskeletal, Integumentary, Endocrine and Eyes/Ea rs/Nose/Throat Exam Surgical H&P Exam: Normal: HEENT, Normal: Heart, Normal: Lungs, Normal: Extremities, Normal: Abdomen, Normal: Skin and Normal: Neurological Plan Diagnosis/Plan: Unchanged I have reviewed the history and physical and performed a pertinent physical examination on my patient. No changes have occurred unless specified. Time Spent With Patient Time: Total time managing care of this patient today ____ minutes.
[2024-07-22 11:33] VITALS: BP 108/71; PULSE 56; RESP 16; TEMP 36.1; O2SAT 56
[2024-07-22] MEDS: Lactated Ringers 1,000 ML 100 ML IVCONT (11:43)
--- NOTE | 2024-07-22 12:19 | HO.OPN-COLON ---
Colonoscopy Operative Note Operative Note Date of Service: 07/22/24 Narrative: Operative Information Procedure Description: EGD, Colonoscopy Indication: abn bowel habit Anesthesia: MAC FLEXIBLE TRANSORAL UPPER GASTROINTESTINAL ENDOSCOPY AND COLONOSCOPY PROCEDURE NOTE UPPER ENDOSCOPY Consent: Indications for the procedure and potential complications of bleeding, perforation, reaction to medications and missed diagnosis were discussed with the patient and informed consent was obtained. Instrument: Olympus GIF H 190 J mid size upper endoscope Monitoring: Vital signs and clinical assessment, continuous EKG monitoring, Pulse oximetry, Carbon Dioxide monitoring and blood pressure monitoring were done throughout the procedure. Procedure: The patient was placed in the left lateral decubitis position and pre-procedure medications were administered and a bite block was placed. The endoscope was inserted into the mouth and advanced under direct vision to the third part of duodenum. A careful inspection was made as the upper endoscope was withdrawn including a retroflexed examination of the proximal stomach; Findings and interventions are described below. Findings: Larynx:normal Esophagus: GE junction at 35 cm, diaphragm hiatus at 40 cm, consistent with 5 cm fixed hiatal hernia, with esophagitis at GEJ, bx taken --schatzki ring noted Stomach: mild erythema. Biopsies were obtained. Grade 2 flap valve on retroflexed examination of the cardia. Duodenum: Normal bulb and descending duodenum, bx taken Intervention: Biopsies as noted above, COLONOSCOPY Instrument: Olympus variable stiffness pediatric scope 190L Colonoscopy Monitoring: Vital signs and clinical assessment, continuous EKG monitoring, Pulse oximetry, Carbon Dioxide monitoring and blood pressure monitoring were done throughout the procedure. Colon withdrawal time was 9 minutes. Procedure: The patient was placed in the left lateral decubitis position and pre-procedure medications were administered. After a digital rectal examination of the ano-rectum, the video colonoscope was inserted into the rectum and advanced through the colon to the cecum/TI. The colonoscope was slowly withdrawn in a retrograde panoramic fashion and the colon mucosa was carefully examined including a retroflexed view of the rectum. Findings and interventions are described below. Procedure Difficulty:moderate Findings: Terminal Ileum-normal, bx taken bx taken from right, left and rectum Cecum:normal Ascending Colon: normal Transverse Colon -normal Descending Colon:normal Sigmoid Colon: normal Rectum: Retroflexion with small internal hemorrhoids, grade I Anorectum - normal Colon preparation: [place] Bowel Preparation Scale Right colon; 1-2 Transverse colon: 2 Left colon; 2 (0 = Unprepared colon segment with mucosa not seen due to solid stool that cannot be cleared. 1 = Portion of mucosa of the colon segment seen, but other areas of the colon segment not well seen due to staining, residual stool and/or opaque liquid. 2 = Minor amount of residual staining, small fragments of stool and/or opaque liquid, but mucosa of colon segment seen well. 3 = Entire mucosa of colon segment seen well with no residual staining, small fragments of stool or opaque liquid) Impression and Post Procedure Diagnosis: Endoscopy Findings: hiatal hernia esophagitis schatzki ring gastritis Colonoscopy Findings: internal hemorrhoids Plan: Await Pathology results Repeat Colonoscopy aged 45 or earlier if clinically indicated High fiber diet leaflet avoid straining at stool, epsom salts and sitz bath, anusol supps or cream consider referral for hiatal hernia repair GERD precautions Above findings were reviewed with the patient and relevant handouts were provided if indicated.
[2024-07-22 12:23] VITALS: BP 97/57; PULSE 58; RESP 18; TEMP 36.5; O2SAT 98
[2024-07-22 12:38] VITALS: BP 104/63; PULSE 50; RESP 16; O2SAT 98
[2024-07-22 12:52] VITALS: BP 108/70; PULSE 54; RESP 16; TEMP 36.4; O2SAT 98
== END 2024-07-22 13:46 | disposition home or self-care (01) ==
PROVIDERS: PCP Nurse Practitioner Gerontology; Visit Provider Internal Medicine Gastroenterology
PROC: (CPT 45380; principal; 2024-07-22 13:00)
DX: R19.8 Other specified symptoms and signs involving the digestive system and abdomen (principal); K64.0 First degree hemorrhoids; K52.9 Noninfective gastroenteritis and colitis, unspecified; K44.9 Diaphragmatic hernia without obstruction or gangrene; K29.80 Duodenitis without bleeding; K20.80 Other esophagitis without bleeding; K29.60 Other gastritis without bleeding; K22.2 Esophageal obstruction; K21.9 Gastro-esophageal reflux disease without esophagitis
CPT/HCPCS: 45380; 43239; 88305; 88313; 88342; J2003; J2704; J3010

== ENCOUNTER → 2024-07-22 11:00 | Outpatient (BNV) | payer OTHER, SELFPAY | PROVIDERS: PCP Nurse Practitioner Gerontology; Visit Provider Internal Medicine Gastroenterology | DX: R19.4 Change in bowel habit (principal); K64.0 First degree hemorrhoids; K52.9 Noninfective gastroenteritis and colitis, unspecified; K20.90 Esophagitis, unspecified without bleeding; K22.2 Esophageal obstruction; K29.80 Duodenitis without bleeding | CPT/HCPCS: 43239; 45380 ==

== ENCOUNTER 2024-08-11 11:01 | Outpatient (AMB) | payer OTHER, SELFPAY ==
--- NOTE | 2024-08-11 11:04 | A.OFFVIS_ITS ---
VS Expanded 08/11/24 11:13 BP 119/72 Blood Pressure Location Rt brachial Blood Pressure Position Sitting Pulse 75 Pulse Source Pulse Oximeter Temp 98.2 F Temperature Source Temporal Artery Scan Pulse Oximetry 96 Oxygen Delivery Method Room Air Height 5 ft 10 in Weight 228 lb 9.6 oz BMI 32.8 Body Fat % 29.6 Body Fat Mass 67.6 Fat Free Mass 160.8 Visceral Fat Rating 11.0 Body Water % 50.4 Body Water Mass 115.0 Muscle Mass/Score 152.8 Basal Metabolic Rate/Score 2,205 Intake Visit Reasons: OV Hiatal Hernia - Dr. Lind Ref. Allergies pollen Allergy (Unknown, Uncoded 08/11/24 11:58) Unknown Medication List - Last Reconciled 08/11/24 by Isaak Craven MD escitalopram oxalate 10 mg PO DAILY omeprazole 20 mg PO DAILY trazodone 100 mg PO BEDTIME PRN HPI Comments Details: Was referred by Dr. 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 Father No problems noted. Social History (Updated 08/11/24 @ 11:09 by Mesha Chacko CMA) Alcohol intake: never Patient Tobacco Use Status: Never used Tobacco Physical Exam Vital Signs: Last Vital Signs Temp 98.2 F 08/11/24 11:13 Pulse 75 08/11/24 11:13 BP 119/72 08/11/24 11:13 Pulse Ox 96 08/11/24 11:13 Oxygen Delivery Method Room Air 08/11/24 11:13 BMI result Body Mass Index 32.8 Assessment & Plan Assessment & Plan (1) Diaphragmatic hernia: Code(s): K44.9 - Diaphragmatic hernia without obstruction or gangrene Category: Medical Qualifiers: Obstruction and gangrene presence: with obstruction but without gangrene Qualified Code(s): K44.0 - Diaphragmatic hernia with obstruction, without gangrene Plan: 1. We discussed the potential etiology of the hernia that could be of traumatic etiology worsened by his weight. We discussed the details of the diaphragmatic hernia repair and the potential technical challenges such as being able to achieve enough mobilization of the esophagus back in the abdomen and being able to close the diaphragmatic muscle (crura) primarily with sutures. We also discussed the possibility of using a biologic mesh to close the hernia defect if the crura cannot be adequately re-approximated primarily with sutures. We also discussed the option of doing a gastropexy or a fundoplication to prevent postoperative reflux and prevent hernia recurrence. As we discussed, I favor the gastropexy as the fundoplication can cause several distrurbing symptoms such as gas-bloating, flatulence, inability to burp which can be bothersome to patients especially for him with a history of IBS. Also we discussed the complexity of a potential hernia recurrence in association with a hernia recurrence. He was in agreement not to have a fundoplication. We also discussed that after surgery, he will need to be on a liquid diet with protein shakes the first week. The second week will add protein bars and soft foods and after the third week we will introduce small amounts of regular food. The transition to normal eating habits will take about 6 weeks which is the time required for the repair to heal completely. He is agreeable to proceed. Prior to scheduling the surgery, I ordered a CT of the abdomen/pelvis. 2.? Please buy the body composition scale we discussed and send me weight measurements as soon as possible and then once a week. Once he gets the scale I will provide to him a meal plan so he can lose some weight before the surgery. Orders: Orders ECG 12 lead EKG Today Z01.818 - Encounter for other preprocedural examination CT abdomen pelvis w IV con Today K21.9 - Gastro-esophageal reflux disease without esophagitis, K44.9 - Diaphragmatic hernia without obstruction or gangrene
[2024-08-11 11:13] VITALS: BP 119/72; PULSE 75; TEMP 36.8; O2SAT 96; BMI 32.8
--- OUTSIDE RECORDS SUMMARY | 2024-08-11 12:05 | XMS_ITS | Continuity of Care Document ---
Author Name [facility] Organization [facility] Care Team Providers Care Ware Carrier Name Role Phone [facility] Unavailable Unavailable Problems Combined list of problems from Department of Defense and Veterans Affairs facilities. It does not include entries that were removed or entered in error. Problem Status Onset Date Problem Type Date of Resolution Comments Source Pain in right knee Active Condition [facility] Acute upper respiratory infection, unspecified Active Condition [facility] Allergic rhinitis, unspecified Active Condition [facility] Attention deficit hyperactivity disorder, combined type Active Condition [facility] Chronic [facility] pain [facility] Obstructive sleep apnea Active Condition [facility] Overweight Active Condition [facility] Panic disorder Active Condition [facility] IELD Right knee pain Active Condition Mar 12, 2024 Entered By: JANET HOPKINS Comment: May 2023 MRI RIGHT knee: Bucket-handle tear of the lateral meniscus.Mar 12, 2024 Entered By: JANET HOPKINS Comment: [facility] July 2023 surgery YINA Urine chlamydia trachomatis test positive Active Condition Feb 16, 2020 Entered By: JANET HOPKINS Comment: 01/2020 - tx'ed [place] [facility] Diagnosis: ICD-10-CM F43.12 Post-traumatic stress disorder, chronic Active Diagnosis [facility] Diagnosis: ICD-10-CM J06.9 Acute upper respiratory infection, unspecified Active Diagnosis [facility] Diagnosis: ICD-10-CM F90.2 Attention-deficit hyperactivity disorder, combined type Active Diagnosis [facility] Diagnosis: ICD-10-CM M25.561 Pain in right knee Active Diagnosis [facility] Diagnosis: ICD-10-CM G47.33 Obstructive sleep apnea (adult) (pediatric) Active Diagnosis [facility] Diagnosis: ICD-10-CM Z23 Encounter for immunization Active Diagnosis [facility] Diagnosis: ICD-10-CM M25.549 Pain in joints of unspecified hand Active Diagnosis [facility] Diagnosis: ICD-10-CM K21.9 Gastro-esophageal reflux disease without esophagitis Active Diagnosis [facility] Medications Combined list of outpatient medications from [...] DAILY FOR FUNGAL INFECTIO N TOPICA L ACTIVE 04/15/2025 [id number] RA MC TARIQ 2024 30 IELD ESCITALOPRA M OXALATE 10MG TAB TAKE ONE TABLET BY MOUTH ONCE DAILY FOR MOOD/DEP RESSION ORAL DISCONT INUED (EDIT) 04/27/2025 [id number] 5 Darrian HAWTHORNE 2024 30 IELD ESCITALOPRA M OXALATE 20MG TAB TAKE ONE-HALF TABLET BY MOUTH ONCE DAILY FOR MOOD/DEP RESSION ORAL ACTIVE 06/23/2025 [id number] 5 Darrian HAWTHORNE G 2024 15 [place] OMEPRAZOLE 20MG CAP,EC TAKE ONE CAPSULE BY MOUTH EVERY MORNING 30 MINUTES BEFORE BREAKFAS T FOR EXCESSIV E PRODUCTI ON OF STOMACH ACID ORAL 03/18/2024 [id number] 4 SANDEEP, APOLINARI O 2022 180 [facility] IE SILDENAFIL CITRATE 100MG TAB TAKE ONE TABLET BY MOUTH ONCE DAILY NEEDED TAKE 1 HOUR PRIOR TO SEXUAL ACTIVITY ORAL 03/18/2024 [id number] SANDEEP, APOLINARI O 2022 6 [facility] IELD TRAZODONE HCL 100MG TAB TAKE TWO TABLETS BY MOUTH AT BEDTIME FOR INSOMNIA ASSOCIAT ED WITH DEPRESSI ON ORAL ACTIVE 06/23/2025 [id number] Darrian HAWTHORNE 2024 60 [facility] IELD TRAZODONE HCL 100MG TAB TAKE ONE-HALF TO ONE TABLET BY MOUTH AT BEDTIME NEEDED FOR INSOMNIA ASSOCIAT ED WITH DEPRESSI ON ORAL DISCONT INUED (EDIT) 04/27/2025 [id number] 5 Darrian HAWTHORNE G 2024 30 [facility] Allergies, Adverse Reactions, Alerts Combined list of [...] Site Reaction Lot Number CVX Code Drug Screen Cutter And Trimmer Status Comments Source HPV9 3 2023 FARHAN ESTRADA LEFT DELTO ID [id number] 165 complet ed [facility]MIN[facility] AT [facility] IELD HPV9 2022 FARHAN ESTRADA RIGHT DELTO ID [id number] 165 complet ed [facility] AT [facility] HPV9 1 2022 WILY POOLE LEFT DELTO ID [id number] 165 complet ed [facility]MIN[facility]E [facility] AT [facility] Influenza, injectable, quadrivalent, preservative free 1 2016 [id number] 150 Seqirus (SEQ) comple t ed Influenza , injectabl e, quadrival ent, preservat ashley free DoD anthrax vaccine 2 2016 [id number] [employer] Mor[employer] (MIP) complet ed anthrax vaccine DoD anthrax vaccine 1 2015 [id number] 24 [employer] (MIP) complet ed anthrax vaccine DoD typhoid Vi capsular polysaccharid e vaccine 1 2015 [id number] 101 Sanofi Pasteur (PMC) complet ed typhoid Vi capsular polysacch aride vaccine DoD influenza, injectable, quadrivalent, contains preservative 1 2015 [id number] 1A 158 [employer] (SEQ) complet ed influenza , injectabl e, quadrival ent, contains preservat ashley DoD hepatitis B vaccine, adult dosage 3 2015 [id number] 43 Unknown (UNK) comple t ed hepatitis B vaccine, adult dosage DoD measles, mumps and rubella virus vaccine 2 2014 [id number] 03 Merck (MSD) complet ed measles, mumps and rubella virus vaccine DoD hepatitis B vaccine, pediatric or pediatric/ado lescent dosage 2 2014 [id number] 08 [employer] ([facility]) complet ed hepatitis B vaccine, pediatric or pediatric /adolesce nt dosage DoD varicella virus vaccine 2 2014 [id number] 21 Merck (MSD) complet ed varicella virus vaccine DoD Influenza, seasonal, injectable 1 2014 [id number] 1A 141 [employer] (CS) complet ed Influenza , seasonal, injectabl e DoD Influenza, seasonal, injectable 1 2014 [id number] 1A 141 [employer] ([facility]) complet ed Influenza , seasonal, injectabl e DoD measles, mumps and rubella virus vaccine 1 2014 [id number] 03 Merck (MSD) complet ed measles, mumps and rubella virus vaccine DoD hepatitis B vaccine, pediatric or pediatric/ado lescent dosage 1 2014 [id number] 08 [employer] ([facility]) complet ed hepatitis B vaccine, pediatric or pediatric /adolesce nt dosage DoD varicella virus vaccine 1 2014 [id number] 21 Merck (MSD) complet ed varicella virus vaccine DoD hepatitis A vaccine, adult dosage 1 2014 UNK 52 Unknown (UNK) Not Given hepatitis A vaccine, adult dosage DoD Adenovirus, type 4 and type 7, live, oral 1 2014 [id number] 143 [facility] [employer] ([facility]) complet ed Adenoviru s, type 4 and type 7, live, oral DoD poliovirus vaccine, inactivated 1 2014 [id number] 10 Sanofi Pasteur (PMC) complet ed polioviru s vaccine, inactivat ed DoD meningococcal polysaccharid e (groups A, C, Y and W-135) diphtheria toxoid conjugate vaccine (MCV4P) 1 2014 [id number] [facility] ([facility]) complet ed meningoco ccal polysacch aride (groups A, C, Y and W-135) diphtheri a toxoid conjugate vaccine (MCV4P) DoD tetanus toxoid, reduced diphtheria toxoid, and acellular pertu is vaccine, adsorbed 1 2014 [id number] 115 Sanofi Pasteur (PMC) complet ed tetanus toxoid, reduced diphtheri a toxoid, and acellular pertussis vaccine, adsorbed DoD TDAP 2014 115 complet ed [facility] Results Combined list of recent chemistry, hematology and other laboratory results from Department of Defense and Veterans Affairs, ranging from 15 months to all on record, depending upon the facility. Order Name Results Value Reference Range Date Interpretation Specimen Comments Source SEMEN ANALYSIS ,FERTILI TY (FHI) SEMEN ANALYSIS PANEL [facility] 07/21 Specimen Type: SEMINAL FLUID No comment entered. Ordering Provider: ASIM TARIQ Report Released Date/Time: Jul 19, 2024 10:44 AM Reporting Lab: [facility] [address] [facility] [address] Performing Lab: [facility] [address] [facility] [address] [facility] CBC AND DIFF (AUTO) LEUKOCYTES [#/VOLUME] IN BLOOD BY AUTOMATED COUNT 6.72 10*3/uL 4.50 - 11.00 06/24 Specimen Type: BLOOD No comment entered. Ordering Provider: ASIM TARIQ Report Released Date/Time: Jun 22, 2024 09:56 AM Reporting Lab: [facility] [address] [facility] [address] Performing Lab: [facility] [address] [address] [place] CBC AND DIFF (AUTO) ERYTHROCYT ES [#/VOLUME] IN BLOOD BY AUTOMATED COUNT 4.93 10*6/uL 4.23 - 5.66 06/24 Specimen Type: BLOOD No comment entered. Ordering Provider: ASIM TARIQ Report Released Date/Time: Jun 22, 2024 09:56 AM Reporting Lab: [facility] [place] [address] [address] Performing Lab: [facility] [address] [place] CBC AND DIFF (AUTO) HEMOGLOBIN [MASS/VOLU ME] IN BLOOD 14.9 g/dL 12.8 - 17 06/24 Specimen Type: BLOOD No comment entered. Ordering Provider: ASIM TARIQ Report Released Date/Time: Jun 22, 2024 09:56 AM Reporting Lab: [facility]RMI[facility]ITALTR[facility] [address] Performing Lab: [facility]ITALTRN [facility] [address] [place] CBC AND DIFF (AUTO) HEMATOCRIT [VOLUME FRACTION] OF BLOOD BY AUTOMATED COUNT 43.1 39.2 - 50.4 06/24 Specimen Type: BLOOD No comment entered. Ordering Provider: ASIM TARIQ Report Released Date/Time: Jun 22, 2024 09:56 AM Reporting Lab: [facility]OSPITALTRN [address]SE[address] [address] Performing Lab: [facility]PITALTRN [facility] [address] [place] CBC AND DIFF (AUTO) MCV [ENTITIC VOLUME] BY AUTOMATED COUNT 87.4 fL 82 - 99 06/24 Specimen Type: BLOOD No comment entered. Ordering Provider: ASIM TARIQ Report Released Date/Time: Jun 22, 2024 09:56 AM Reporting Lab: [facility]ITALTRN [facility] [address] Performing Lab: [facility] [address] [facility] [address] [place] CBC AND DIFF (AUTO) MCHC [MASS/VOLU ME] BY AUTOMATED COUNT 34.6 g/dL 30.8 - 35.1 06/24 Specimen Type: BLOOD No comment entered. Ordering Provider: ASIM TARIQ Report Released Date/Time: Jun 22, 2024 09:56 AM Reporting Lab: [facility]ITALRMI[facility]PITALTRN [facility]USE[address] [address] Performing Lab: [facility]OSPITALRELIZA [facility]OSPITALN [facility]ITALUSE[address] [address] [place] CBC AND DIFF (AUTO) PLATELETS [#/VOLUME] IN BLOOD BY AUTOMATED COUNT 286 10*3/uL 140 - 360 06/24 Specimen Type: BLOOD No comment entered. Ordering Provider: ASIM TARIQ Report Released Date/Time: Jun 22, 2024 09:56 AM Reporting Lab: [facility]ITALRMI[facility]PITALTRN [facility]USE[address] [address] Performing Lab: [facility]ITALRMI[facility]PITALTRN [facility]ITALUSE[address] [address] [place] CBC AND DIFF (AUTO) PLATELET MEAN VOLUME [ENTITIC VOLUME] IN BLOOD BY AUTOMATED COUNT 9.8 fL 9.2 - 12.4 06/24 Specimen Type: BLOOD No comment entered. Ordering Provider: ASIM TARIQ Report Released Date/Time: Jun 22, 2024 09:56 AM Reporting Lab: [facility]ITALRMIZE[facility]OSPITALTRN [facility]USE[address] [address] Performing Lab: [facility]OSPITALRELIZA [facility]OSPITALN [facility]ITALUSE[address] [address] [place] CBC AND DIFF (AUTO) ERYTHROCYT E DISTRIBUTI ON WIDTH [RATIO] BY AUTOMATED COUNT 11.7 12.0 - 16.0 06/24 L Specimen Type: BLOOD No comment entered. Ordering Provider: ASIM TARIQ Report Released Date/Time: Jun 22, 2024 09:56 AM Reporting Lab: [facility]ITALRMIZE[facility]OSPITALTRN [address]SE[address] [place] [address] Performing Lab: [place] [facility] [place] [facility] [address] [facility] [address] [place] CBC AND DIFF (AUTO) MONOCYTES [#/VOLUME] IN BLOOD BY AUTOMATED COUNT 0.44 10*3/uL 0.30 - 1.10 06/24 Specimen Type: BLOOD No comment entered. Ordering Provider: ASIM TARIQ Report Released Date/Time: Jun 22, 2024 09:56 AM Reporting Lab: [place] [facility] [place] [facility] [address] [facility] [address] Performing Lab: [place] [facility] [place] [address] [address] [place] CBC AND DIFF (AUTO) MCH [ENTITIC MASS] BY AUTOMATED COUNT 30.2 pg 26.2 - 32.6 06/24 Specimen Type: BLOOD No comment entered. Ordering Provider: ASIM TARIQ Report Released Date/Time: Jun 22, 2024 09:56 AM Reporting Lab: [place] [facility] [place] [facility] [address] [facility] [address] Performing Lab: [place] [facility] [address] [address] [place] CBC AND DIFF (AUTO) NEUTROPHIL S/100 LEUKOCYTES IN BLOOD BY AUTOMATED COUNT 50.6 43.7 - 75.8 06/24 Specimen Type: BLOOD No comment entered. Ordering Provider: ASIM TARIQ Report Released Date/Time: Jun 22, 2024 09:56 AM Reporting Lab: [place] [facility] [facility] [address] [facility] [address] Performing Lab: [place] [facility] [address] [address] [place] CBC AND DIFF (AUTO) LYMPHOCYTE S/100 LEUKOCYTES IN BLOOD BY AUTOMATED COUNT 42.1 14.0 - 42.3 06/24 Specimen Type: BLOOD No comment entered. Ordering Provider: ASIM TARIQ Report Released Date/Time: Jun 22, 2024 09:56 AM Reporting Lab: [place] [facility] [facility] [address] [facility] [address] Performing Lab: [place] [facility] [address] [facility] [address] [place] CBC AND DIFF (AUTO) MONOCYTES/ 100 LEUKOCYTES IN BLOOD BY AUTOMATED COUNT 6.5 5.1 - 13.7 06/24 Specimen Type: BLOOD No comment entered. Ordering Provider: ASIM TARIQ Report Released Date/Time: Jun 22, 2024 09:56 AM Reporting Lab: [place] [facility] [address] [facility] [address] Performing Lab: [place] [facility]ITALUSETS [address] [address] [place] CBC AND DIFF (AUTO) EOSINOPHIL S/100 LEUKOCYTES IN BLOOD BY AUTOMATED COUNT 0.4 0.4 - 6.8 06/24 Specimen Type: BLOOD No comment entered. Ordering Provider: ASIM TARIQ Report Released Date/Time: Jun 22, 2024 09:56 AM Reporting Lab: [place] [facility] [address] [facility] [address] Performing Lab: [place] [facility] [address] [facility] [address] [place] CBC AND DIFF (AUTO) BASOPHILS/ 100 LEUKOCYTES IN BLOOD BY AUTOMATED COUNT 0.3 0.1 - 2.0 06/24 Specimen Type: BLOOD No comment entered. Ordering Provider: ASIM TARIQ Report Released Date/Time: Jun 22, 2024 09:56 AM Reporting Lab: [place] [facility] [facility] [address] [facility] [address] Performing Lab: [place] [facility] [address] [address] [place] CBC AND DIFF (AUTO) NEUTROPHIL S [#/VOLUME] IN BLOOD BY AUTOMATED COUNT 3.39 10*3/uL 2.20 - 7.60 06/24 Specimen Type: BLOOD No comment entered. Ordering Provider: ASIM TARIQ Report Released Date/Time: Jun 22, 2024 09:56 AM Reporting Lab: [facility]ITALRMIZELL [facility] HOSPITALTRN [facility]ITALUSETS [address] [address] Performing Lab: [facility]OSPITALRELIZA [facility]OSPITALN [address] [address] [place] CBC AND DIFF (AUTO) LYMPHOCYTE S [#/VOLUME] IN BLOOD BY AUTOMATED COUNT 2.83 10*3/uL 1.00 - 3.20 06/24 Specimen Type: BLOOD No comment entered. Ordering Provider: ASIM TARIQ Report Released Date/Time: Jun 22, 2024 09:56 AM Reporting Lab: [facility]PITALRELIZA [facility]OSPITALN [address] [address] Performing Lab: [facility]ITALRELIZA [facility]ITALN [address] [address] [place] CBC AND DIFF (AUTO) EOSINOPHIL S [#/VOLUME] IN BLOOD BY AUTOMATED COUNT 0.03 10*3/uL 0.03 - 0.44 06/24 Specimen Type: BLOOD No comment entered. Ordering Provider: ASIM TARIQ Report Released Date/Time: Jun 22, 2024 09:56 AM Reporting Lab: [facility]ITALRELIZA [facility]OSPITALN [address] [address] Performing Lab: [facility]ITALRELIZA [facility]OS[facility]ITALN [address] [address] [place] CBC AND DIFF (AUTO) BASOPHILS [#/VOLUME] IN BLOOD BY AUTOMATED COUNT 0.02 10*3/uL 0.01 - 0.13 06/24 Specimen Type: BLOOD No comment entered. Ordering Provider: ASIM TARIQ Report Released Date/Time: Jun 22, 2024 09:56 AM Reporting Lab: [facility]ITALRMIZELL [facility]OSPITALTRN [facility]ITALUSETS [address] [address] Performing Lab: [facility]ITALRELIZA [facility]OSPITALN [address] [address] [place] CBC AND DIFF (AUTO) IMMATURE GRANULOCYT ES/100 LEUKOCYTES IN BLOOD BY AUTOMATED COUNT 0.1 0.0 - 0.7 06/24 Specimen Type: BLOOD No comment entered. Ordering Provider: ASIM TARIQ Report Released Date/Time: Jun 22, 2024 09:56 AM Reporting Lab: [facility]RL TRN [address] [address] Performing Lab: [facility]ITALRL TRN [facility]USE[address] [address] [place] CBC AND DIFF (AUTO) IMMATURE GRANULOCYT ES [#/VOLUME] IN BLOOD BY AUTOMATED COUNT 0.01 10*3/uL 0.00 - 0.06 06/24 Specimen Type: BLOOD No comment entered. Ordering Provider: ASIM TARIQ Report Released Date/Time: Jun 22, 2024 09:56 AM Reporting Lab: [facility]N [address] [address] Performing Lab: [facility]ITALRELIZA [facility]OS[facility]ITALN [address] [address] [place] CBC AND DIFF (AUTO) NUCLEATED ERYTHROCYT ES/100 LEUKOCYTES [RATIO] IN BLOOD BY AUTOMATED COUNT 0.0 0.0 - 0.0 06/24 Specimen Type: BLOOD No comment entered. Ordering Provider: ASIM TARIQ Report Released Date/Time: Jun 22, 2024 09:56 AM Reporting Lab: [facility] [address] [address] Performing Lab: [facility]ITALRELIZA [facility]ITALN [address] [address] [place] CBC AND DIFF (AUTO) NUCLEATED ERYTHROCYT ES [#/VOLUME] IN BLOOD BY AUTOMATED COUNT 0.00 10*3/uL 0.00 - 0.00 06/24 Specimen Type: BLOOD No comment entered. Ordering Provider: ASIM TARIQ Report Released Date/Time: Jun 22, 2024 09:56 AM Reporting Lab: [facility]ITALRMIZELL MEMOR[facility] HOSPITALTRN [address] [address] Performing Lab: [facility] [address] [address] [place] SEMEN ANALYSIS ,FERTILI TY (FHI) SEMEN ANALYSIS PANEL [facility] 05/04 Specimen Type: SEMINAL FLUID No comment entered. Ordering Provider: ASIM TARIQ Report Released Date/Time: Apr 18, 2024 09:55 AM Reporting Lab: [place] [facility] [facility] [address] [facility] [address] Performing Lab: [facility]RL TRN [facility]USE[address] [address] [place] CBC AND DIFF (AUTO) LEUKOCYTES [#/VOLUME] IN BLOOD BY AUTOMATED COUNT 10.70 10*3/uL 4.50 - 11.00 04/14 Specimen Type: BLOOD No comment entered. Ordering Provider: ASIM TARIQ Report Released Date/Time: Apr 14, 2024 01:26 PM Reporting Lab: [place] [facility] [facility] [address] Performing Lab: [facility]RL TRN [facility]ITALUSETS [address] [address] [place] CBC AND DIFF (AUTO) ERYTHROCYT ES [#/VOLUME] IN BLOOD BY AUTOMATED COUNT 4.73 10*6/uL 4.23 - 5.66 04/14 Specimen Type: BLOOD No comment entered. Ordering Provider: ASIM TARIQ Report Released Date/Time: Apr 14, 2024 01:26 PM Reporting Lab: [facility]RL TRN [facility]ITALUSETS [address] [address] Performing Lab: [place] [facility] [facility]ITAL[facility] [address] [address] [place] CBC AND DIFF (AUTO) HEMOGLOBIN [MASS/VOLU ME] IN BLOOD 14.5 g/dL 12.8 - 17 04/14 Specimen Type: BLOOD No comment entered. Ordering Provider: ASIM TARIQ Report Released Date/Time: Apr 14, 2024 01:26 PM Reporting Lab: [place] [facility] [facility] [address] [address] Performing Lab: [facility]RL TRN [facility]ITALUSETS [address] [address] [place] CBC AND DIFF (AUTO) HEMATOCRIT [VOLUME FRACTION] OF BLOOD BY AUTOMATED COUNT 41.5 39.2 - 50.4 04/14 Specimen Type: BLOOD No comment entered. Ordering Provider: ASIM TARIQ Report Released Date/Time: Apr 14, 2024 01:26 PM Reporting Lab: [facility]ITALRMIZELL [facility]OSPITALTRN [address] [address] Performing Lab: [facility]ITALRELIZA [facility]ITALN [address] [address] [place] CBC AND DIFF (AUTO) MCV [ENTITIC VOLUME] BY AUTOMATED COUNT 87.7 fL 82 - 99 04/14 Specimen Type: BLOOD No comment entered. Ordering Provider: ASIM TARIQ Report Released Date/Time: Apr 14, 2024 01:26 PM Reporting Lab: [facility] [address] [address] Performing Lab: [facility] [address] [address] [place] CBC AND DIFF (AUTO) MCHC [MASS/VOLU ME] BY AUTOMATED COUNT 34.9 g/dL 30.8 - 35.1 04/14 Specimen Type: BLOOD No comment entered. Ordering Provider: ASIM TARIQ Report Released Date/Time: Apr 14, 2024 01:26 PM Reporting Lab: [facility] [address] [address] Performing Lab: [facility]ITALRMIZE[facility]OSPITALTRN [facility] [address] [place] CBC AND DIFF (AUTO) PLATELETS [#/VOLUME] IN BLOOD BY AUTOMATED COUNT 257 10*3/uL 140 - 360 04/14 Specimen Type: BLOOD No comment entered. Ordering Provider: ASIM TARIQ Report Released Date/Time: Apr 14, 2024 01:26 PM Reporting Lab: [facility]ITALRMIZE[facility]OSPITALTRN [address] [address] Performing Lab: [facility]ITALRELIZA [facility]ITALN [facility] [address] [place] CBC AND DIFF (AUTO) ERYTHROCYT E DISTRIBUTI ON WIDTH [RATIO] BY AUTOMATED COUNT 11.7 12.0 - 16.0 04/14 L Specimen Type: BLOOD No comment entered. Ordering Provider: ASIM TARIQ Report Released Date/Time: Apr 14, 2024 01:26 PM Reporting Lab: [facility]ITALR WSTRN [facility] [address] [facility] [address] Performing Lab: [facility]R WSTRN [facility]ITALUSETS [address] [address] [place] CBC AND DIFF (AUTO) MONOCYTES [#/VOLUME] IN BLOOD BY AUTOMATED COUNT 0.69 10*3/uL 0.30 - 1.10 04/14 Specimen Type: BLOOD No comment entered. Ordering Provider: ASIM TARIQ Report Released Date/Time: Apr 14, 2024 01:26 PM Reporting Lab: [facility]ITALRMIZE[facility]OSPITALTRN [place] [address] [address] Performing Lab: [facility]ITALRMI[facility]PITALTRN [place] [address] [address] [place] CBC AND DIFF (AUTO) MCH [ENTITIC MASS] BY AUTOMATED COUNT 30.7 pg 26.2 - 32.6 04/14 Specimen Type: BLOOD No comment entered. Ordering Provider: ASIM TARIQ Report Released Date/Time: Apr 14, 2024 01:26 PM Reporting Lab: [facility]RMI[facility]PITALTRN [place] [address] [address] Performing Lab: [facility]ITALTRN [place] [address] [address] [place] CBC AND DIFF (AUTO) NEUTROPHIL S/100 LEUKOCYTES IN BLOOD BY AUTOMATED COUNT 61.4 43.7 - 75.8 04/14 Specimen Type: BLOOD No comment entered. Ordering Provider: ASIM TARIQ Report Released Date/Time: Apr 14, 2024 01:26 PM Reporting Lab: [facility] [address] Performing Lab: [facility] [address] [facility] [address] [place] CBC AND DIFF (AUTO) LYMPHOCYTE S/100 LEUKOCYTES IN BLOOD BY AUTOMATED COUNT 30.5 14.0 - 42.3 04/14 Specimen Type: BLOOD No comment entered. Ordering Provider: ASIM TARIQ Report Released Date/Time: Apr 14, 2024 01:26 PM Reporting Lab: [place] [facility] [place] [facility] [address] [facility] [address] Performing Lab: [facility] [address] PAGE [address] [address] [place] CBC AND DIFF (AUTO) MONOCYTES/ 100 LEUKOCYTES IN BLOOD BY AUTOMATED COUNT 6.4 5.1 - 13.7 04/14 Specimen Type: BLOOD No comment entered. Ordering Provider: ASIM TARIQ Report Released Date/Time: Apr 14, 2024 01:26 PM Reporting Lab: [place] [facility] [address] [address] Performing Lab: [place] [facility] [facility] [address] [address] [place] CBC AND DIFF (AUTO) EOSINOPHIL S/100 LEUKOCYTES IN BLOOD BY AUTOMATED COUNT 0.8 0.4 - 6.8 04/14 Specimen Type: BLOOD No comment entered. Ordering Provider: ASIM TARIQ Report Released Date/Time: Apr 14, 2024 01:26 PM Reporting Lab: [place] [facility] [address] [address] Performing Lab: [place] [facility] [facility] [address] [address] [place] CBC AND DIFF (AUTO) BASOPHILS/ 100 LEUKOCYTES IN BLOOD BY AUTOMATED COUNT 0.4 0.1 - 2.0 04/14 Specimen Type: BLOOD No comment entered. Ordering Provider: ASIM TARIQ Report Released Date/Time: Apr 14, 2024 01:26 PM Reporting Lab: [place] [facility] [facility] [facility] [address] [address] Performing Lab: [facility] [place] [facility] [address] [facility] [address] [place] CBC AND DIFF (AUTO) NEUTROPHIL S [#/VOLUME] IN BLOOD BY AUTOMATED COUNT 6.57 10*3/uL 2.20 - 7.60 04/14 Specimen Type: BLOOD No comment entered. Ordering Provider: ASIM TARIQ Report Released Date/Time: Apr 14, 2024 01:26 PM Reporting Lab: [facility] [address] [address] Performing Lab: [facility]N [address] [address] [place] CBC AND DIFF (AUTO) LYMPHOCYTE S [#/VOLUME] IN BLOOD BY AUTOMATED COUNT 3.26 10*3/uL 1.00 - 3.20 04/14 H Specimen Type: BLOOD No comment entered. Ordering Provider: ASIM TARIQ Report Released Date/Time: Apr 14, 2024 01:26 PM Reporting Lab: [facility]N [address] [address] Performing Lab: [facility] [address] [address] [place] CBC AND DIFF (AUTO) EOSINOPHIL S [#/VOLUME] IN BLOOD BY AUTOMATED COUNT 0.09 10*3/uL 0.03 - 0.44 04/14 Specimen Type: BLOOD No comment entered. Ordering Provider: ASIM TARIQ Report Released Date/Time: Apr 14, 2024 01:26 PM Reporting Lab: [facility]RMIZE[facility]ITALTRN [address] [address] Performing Lab: [facility] [address] [address] [place] CBC AND DIFF (AUTO) BASOPHILS [#/VOLUME] IN BLOOD BY AUTOMATED COUNT 0.04 10*3/uL 0.01 - 0.13 04/14 Specimen Type: BLOOD No comment entered. Ordering Provider: ASIM TARIQ Report Released Date/Time: Apr 14, 2024 01:26 PM Reporting Lab: [facility] [address] [address] Performing Lab: [facility]ITALRMIZE[facility]OSPITALTRN [facility] [address] [place] CBC AND DIFF (AUTO) IMMATURE GRANULOCYT ES/100 LEUKOCYTES IN BLOOD BY AUTOMATED COUNT 0.5 0.0 - 0.7 04/14 Specimen Type: BLOOD No comment entered. Ordering Provider: ASIM TARIQ Report Released Date/Time: Apr 14, 2024 01:26 PM Reporting Lab: [facility]ITALTRN [address] [address] Performing Lab: [facility] [address] [address] [place] CBC AND DIFF (AUTO) IMMATURE GRANULOCYT ES [#/VOLUME] IN BLOOD 0.05 10*3/uL 0.00 - 0.06 04/14 Specimen Type: BLOOD No comment entered. Ordering Provider: ASIM TARIQ Report Released Date/Time: Apr 14, 2024 01:26 PM Reporting Lab: [facility] [address] [address] Performing Lab: [facility]ITALRELIZA [facility]OSPITALN [facility] [address] [place] CBC AND DIFF (AUTO) NRBC % 0.0 0.0 - 0.0 04/14 Specimen Type: BLOOD No comment entered. Ordering Provider: ASIM TARIQ Report Released Date/Time: Apr 14, 2024 01:26 PM Reporting Lab: [facility]ITALRMI[facility]OSPITALTRN [facility] [address] Performing Lab: [facility]N [facility] [address] [place] CBC AND DIFF (AUTO) NRBC, ABS 0.00 10*3/uL 0.00 - 0.00 04/14 Specimen Type: BLOOD No comment entered. Ordering Provider: ASIM TARIQ Report Released Date/Time: Apr 14, 2024 01:26 PM Reporting Lab: [address] [address] Performing Lab: [address] [address] [facility] COVID-19 FLU/RSV DIAGNOST IC PANEL SARS-COV-2 (COVID-19) [...] patient management decisions.C epheid FLUVID: HCPs: https://www .fda.gov/me wisam/239067/ download. Patients: https://www .fda.gov/me wisam/133325/ download Ordering Provider: ASIM TARIQ Report Released Date/Time: Apr 14, 2024 01:05 PM Reporting Lab: [address] [address] Performing Lab: [address] [address] [facility] COVID-19 FLU/RSV DIAGNOST IC PANEL FLU A [...] patient management decisions.C epheid FLUVID: HCPs: https://www .fda.gov/me wisam/314025/ download. Patients: https://www .fda.gov/me wisam/940557/ download Ordering Provider: ASIM TARIQ Report Released Date/Time: Apr 14, 2024 01:05 PM Reporting Lab: [address] [address] Performing Lab: [facility] [address] [facility] [address] [place] COVID-19 FLU/RSV DIAGNOST IC PANEL FLU [...] patient management decisions.C epheid FLUVID: HCPs: https://www .[facility].gov/tx wisam/413070/ download. Patients: https://www .fda.gov/tx wisam/016027/ download Ordering Provider: ASIM TARIQ Report Released Date/Time: Apr 14, 2024 01:05 PM Reporting Lab: [address] [address] Performing Lab: [address] [address] [place] COVID-[place] FLU/RSV DIAGNOST IC PANEL RSV [...] patient management decisions.C epheid FLUVID: HCPs: https://www .fda.gov/tx wisam/706760/ download. Patients: https://www .fda.gov/tx wisam/107132/ download Ordering Provider: ASIM TARIQ Report Released Date/Time: Apr 14, 2024 01:05 PM Reporting Lab: [facility] [address] [facility] [address] Performing Lab: [address] [address] [place] URINALYS IS COLOR OF URINE Light-Ye llow 04/08 Specimen Type: URINE Comment: If Glucose = >500 and Ketones are positive, please alert the Physician. Ordering Provider: TOYA HOPKINS Report Released Date/Time: Mar 30, 2024 10:57 AM Reporting Lab: [facility] [place] [address] [address] Performing Lab: [place] [facility] [address] [facility] [address] [facility]ITALRL WSTRN [place] [facility] URINALYS IS APPEARANCE OF URINE Clear 04/08 Specimen Type: URINE Comment: If Glucose = >500 and Ketones are positive, please alert the Physician. Ordering Provider: TOYA HOPKINS Report Released Date/Time: Mar 30, 2024 10:57 AM Reporting Lab: [facility] [place] [address] [address] Performing Lab: [facility]RL [facility] [place] [address] [address] [facility]ITALRMIZELL [facility] HOSPITALTRN [facility] URINALYS IS GLUCOSE [MASS/VOLU ME] IN URINE Normalmg /dL 04/08 Specimen Type: URINE Comment: If Glucose = >500 and Ketones are positive, please alert the Physician. Ordering Provider: TOYA HOPKINS Report Released Date/Time: Mar 30, 2024 10:57 AM Reporting Lab: [facility] [place] [address] [address] Performing Lab: [place] [address] [address] [facility]ITALRL WSTRN [place] [facility] URINALYS IS KETONES [MASS/VOLU ME] IN URINE BY TEST STRIP NEGATIVE mg/dL 04/08 Specimen Type: URINE Comment: If Glucose = >500 and Ketones are positive, please alert the Physician. Ordering Provider: TOYA HOPKINS Report Released Date/Time: Mar 30, 2024 10:57 AM Reporting Lab: [facility] [place] [address] [address] Performing Lab: [facility] [place] [facility] [address] [facility] [address] [facility]ITALRMIZELL [facility]ITALTRN [facility] URINALYS IS ERYTHROCYT ES [PRESENCE] IN URINE SEDIMENT BY LIGHT MICROSCOPY NEGATIVE mg/dL 04/08 Specimen Type: URINE Comment: If Glucose = >500 and Ketones are positive, please alert the Physician. Ordering Provider: TOYA HOPKINS Report Released Date/Time: Mar 30, 2024 10:57 AM Reporting Lab: [facility]ITALRL [facility]N [place] [facility] [address] [facility] [address] Performing Lab: [facility]ITALRMIZELL [facility] HOSPITALTRN [facility] [address] [facility] [address] [facility]N [facility]ITALUSE [facility] URINALYS IS PROTEIN [MASS/VOLU ME] IN URINE BY TEST STRIP 10 mg/dL 04/08 Specimen Type: URINE Comment: If Glucose = >500 and Ketones are positive, please alert the Physician. Ordering Provider: TOYA HOPKINS Report Released Date/Time: Mar 30, 2024 10:57 AM Reporting Lab: [facility]ITALRMIZE[facility]OSPITALTRN [place] [facility] [address] [facility] [address] Performing Lab: [facility]ITALRMIZE[facility] HOSPITALTRN [facility] [address] [facility] [address] [facility]N [facility]ITALUSE [facility] URINALYS IS NITRITE [PRESENCE] IN URINE NEGATIVE mg/dL 04/08 Specimen Type: URINE Comment: If Glucose = >500 and Ketones are positive, please alert the Physician. Ordering Provider: TOYA HPOKINS Report Released Date/Time: Mar 30, 2024 10:57 AM Reporting Lab: [facility]ITALRMIZE[facility]OSPITALTRN [place] [facility] [address] [facility] [address] Performing Lab: [facility]ITALRMIZE[facility]OSPITALTRN [facility]ITAL[facility]ETS [facility] [address] [facility] [address] [facility]PITALRELIZA [facility]OSPITALN [facility]ITALUSE [facility] URINALYS IS BILIRUBIN. TOTAL [PRESENCE] IN URINE NEGATIVE mg/dL 04/08 Specimen Type: URINE Comment: If Glucose = >500 and Ketones are positive, please alert the Physician. Ordering Provider: TOYA HOPKINS Report Released Date/Time: Mar 30, 2024 10:57 AM Reporting Lab: [place] [facility] [facility] [address] [facility] [address] Performing Lab: [place] [facility] [address] [facility] [address] [facility]ITALRL WSTRN [place] [facility] URINALYS IS SPECIFIC GRAVITY OF URINE BY REFRACTOME TRY 1.019 1.016 - 1.022 04/08 Specimen Type: URINE Comment: If Glucose = >500 and Ketones are positive, please alert the Physician. Ordering Provider: TOYA HOPKINS Report Released Date/Time: Mar 30, 2024 10:57 AM Reporting Lab: [facility] [place] [facility] [address] [facility] [address] Performing Lab: [place] [address] [address] [facility]ITALRMIZELL [facility] HOSPITALTRN [place] [facility] URINALYS IS PH OF URINE BY TEST STRIP 6.5 5.0 - 9.0 04/08 Specimen Type: URINE Comment: If Glucose = >500 and Ketones are positive, please alert the Physician. Ordering Provider: TOYA HOPKINS Report Released Date/Time: Mar 30, 2024 10:57 AM Reporting Lab: [facility] [place] [facility] [address] [facility] [address] Performing Lab: [place] [address] [address] [facility]ITALRL TRN [place] [facility] URINALYS IS UROBILINOG EN [MASS/VOLU ME] IN URINE BY TEST STRIP Normalmg /dL <2.0 - 2.0 04/08 Specimen Type: URINE Comment: If Glucose = >500 and Ketones are positive, please alert the Physician. Ordering Provider: TOYA HOPKINS Report Released Date/Time: Mar 30, 2024 10:57 AM Reporting Lab: [facility]RL [facility] [place] [address] [address] Performing Lab: [place] [address] [address] [facility]PITALRELIZA [facility]OSPITALN [facility]ITALUSE [facility] URINALYS IS LEUKOCYTE ESTERASE [PRESENCE] IN URINE BY TEST STRIP NEGATIVE 04/08 Specimen Type: URINE Comment: If Glucose = >500 and Ketones are positive, please alert the Physician. Ordering Provider: TOYA HOPKINS Report Released Date/Time: Mar 30, 2024 10:57 AM Reporting Lab: [facility]ITALRELIZA [facility] HOSPITALN [facility]ITALUSE[address] [address] Performing Lab: [facility]ITALRL TRN [address] [address] [facility]ITALRELIZA [facility]OSPITALN [facility] TSH THYROTROPI N [UNITS/VOL UME] IN SERUM OR PLASMA 1.08 u[IU]/mL 0.35 - 5.00 04/08 Specimen Type: SERUM No comment entered. Ordering Provider: TOYA HOPKINS Report Released Date/Time: Apr 15, 2023 03:54 PM Reporting Lab: [facility]ITALRMIZELL MEMORIAL HOSPITALTRN [address] [address] Performing Lab: [facility]ITALRELIZA [facility]OSPITALN [address] [address] [facility] BASIC METABOLI C PANEL (fasting ) UREA NITROGEN [MASS/VOLU ME] IN SERUM OR PLASMA 16 mg/dL 7 - 25 04/08 Specimen Type: SERUM No comment entered. Ordering Provider: TOYA HOPKINS Report Released Date/Time: Apr 15, 2023 03:54 PM Reporting Lab: [facility]ITALRL TRN [facility] [address] Performing Lab: [facility]ITALRELIZA [facility]OSPITALN [address] [address] [facility]N [facility] BASIC METABOLI C PANEL (fasting ) GLUCOSE [MASS/VOLU ME] IN SERUM OR PLASMA 94 mg/dL 65 - 100 04/08 Specimen Type: SERUM No comment entered. Ordering Provider: TOYA HOPKINS Report Released Date/Time: Apr 15, 2023 03:54 PM Reporting Lab: [facility] [place] [facility] [address] [facility] [address] Performing Lab: [place] [facility] [address] [facility] [address] [place] [facility] BASIC METABOLI C PANEL (fasting ) SODIUM [MOLES/VOL UME] IN SERUM OR PLASMA 139 mmol/L 135 - 145 04/08 Specimen Type: SERUM No comment entered. Ordering Provider: TOYA HOPKINS Report Released Date/Time: Apr 15, 2023 03:54 PM Reporting Lab: [place] [facility] [address] [facility] [address] Performing Lab: [place] [address] [address] [facility]ITALRL WSTRN [place]SE [facility] BASIC METABOLI C PANEL (fasting ) POTASSIUM [MOLES/VOL UME] IN SERUM OR PLASMA 4.1 mmol/L 3.5 - 5.0 04/08 Specimen Type: SERUM No comment entered. Ordering Provider: TOYA HOPKINS Report Released Date/Time: Apr 15, 2023 03:54 PM Reporting Lab: [place] [facility] [facility] [address] [facility] [address] Performing Lab: [place] [facility] [address] [facility] [address] [facility]ITALRL WSTRN [place] [facility] BASIC METABOLI C PANEL (fasting ) CHLORIDE [MOLES/VOL UME] IN SERUM OR PLASMA 106 mmol/L 100 - 110 04/08 Specimen Type: SERUM No comment entered. Ordering Provider: TOYA HOPKINS Report Released Date/Time: Apr 15, 2023 03:54 PM Reporting Lab: [place] [facility] [facility] [address] [facility] [address] Performing Lab: [place] [facility] [facility] [address] [facility] [address] [place] [facility] BASIC METABOLI C PANEL (fasting ) CARBON DIOXIDE, TOTAL [MOLES/VOL UME] IN SERUM OR PLASMA 25 meq/L 20 - 30 04/08 Specimen Type: SERUM No comment entered. Ordering Provider: TOYA HOPKINS Report Released Date/Time: Apr 15, 2023 03:54 PM Reporting Lab: [place] [facility] [address] [facility] [address] Performing Lab: [place] [facility] [facility] [address] [facility]ITALRL WSTRN [facility]ITALUSE [facility] BASIC METABOLI C PANEL (fasting ) CREATININE [MASS/VOLU ME] IN SERUM OR PLASMA 1.17 mg/dL 0.50 - 1.40 04/08 Specimen Type: SERUM No comment entered. Ordering Provider: TOYA HOPKINS Report Released Date/Time: Apr 15, 2023 03:54 PM Reporting Lab: [facility]ITALRL TRN [facility] [address] Performing Lab: [facility]ITALRL TRN [facility] [address] [facility]ITALRL TRN [facility]ITALUSE [facility] BASIC METABOLI C PANEL (fasting ) GLOMERULAR FILTRATION RATE/1.73 SQ M.PREDICTE D [VOLUME RATE/AREA] IN SERUM, PLASMA OR BLOOD BY CREATININE -BASED FORMULA (CKD-EPI 2020) 87 mL/min 60 04/08 Specimen Type: SERUM No comment entered. Ordering Provider: TOYA HOPKINS Report Released Date/Time: Apr 15, 2023 03:54 PM Reporting Lab: [facility]ITALRL TRN [facility]ITALUSETS [address] [address] Performing Lab: [facility]ITALRL TRN [facility]ITALUSETS [address] [address] [facility]ITALRL [facility]PITALUSE [facility] LIPID PANEL FASTING CHOLESTERO L [MASS/VOLU ME] IN SERUM OR PLASMA 146 mg/dL 04/08 Specimen Type: SERUM No comment entered. Ordering Provider: TOYA HOPKINS Report Released Date/Time: Apr 15, 2023 03:54 PM Reporting Lab: [facility]ITALRMIZELL [facility]IAL HOSPITALTRN [facility]USE[address] [address] Performing Lab: [facility]ITALRL [facility]N [place] [facility] [address] [facility] [address] [place] [facility] LIPID PANEL FASTING TRIGLYCERI DE [MASS/VOLU ME] IN SERUM OR PLASMA 103 mg/dL 0 - 150 04/08 Specimen Type: SERUM No comment entered. Ordering Provider: TOYA HOPKINS Report Released Date/Time: Apr 15, 2023 03:54 PM Reporting Lab: [facility] [place] [facility] [address] [facility] [address] Performing Lab: [facility] [place] [facility] [address] [facility] [address] [place] [facility] LIPID PANEL FASTING CHOLESTERO L IN LDL [MASS/VOLU ME] IN SERUM OR PLASMA BY CALCMAY N 87 mg/dL 0 - 129 04/08 Specimen Type: SERUM No comment entered. Ordering Provider: TOYA HOPKINS Report Released Date/Time: Apr 15, 2023 03:54 PM Reporting Lab: [facility] [place] [facility] [address] [facility] [address] Performing Lab: [facility] [place] [facility] [address] [facility] [address] [place] [facility] LIPID PANEL FASTING CHOLESTERO L.TOTAL/CH OLESTEROL IN HDL [MASS RATIO] IN SERUM OR PLASMA 3.8 04/08 Specimen Type: SERUM No comment entered. Ordering Provider: TOYA HOPKINS Report Released Date/Time: Apr 15, 2023 03:54 PM Reporting Lab: [facility] [place] [facility] [address] [facility] [address] Performing Lab: [facility] [place] [facility] [address] [facility] [address] [place] [facility] LIPID PANEL FASTING CHOLESTERO L IN HDL [MASS/VOLU ME] IN SERUM OR PLASMA 38 mg/dL 40 - 60 04/08 L Specimen Type: SERUM No comment entered. Ordering Provider: TOYA HOPKINS Report Released Date/Time: Apr 15, 2023 03:54 PM Reporting Lab: [address] [address] Performing Lab: [address] [address] [facility] HEMOGLOB IN A1C PANEL HEMOGLOBIN A1C/HEMOGL [...] Apr 15, 2023 03:54 PM Reporting Lab: [address] [address] Performing Lab: [address] [address] [facility] Vital Signs Combined list of inpatient and outpatient Vital Signs from Department of Defense and Veterans Affairs, ranging from 12 months to all on record, depending upon the facility. Vital Sign Value Date Comments Source PULSE OXIMETRY 99 04/14/2024 [facility]:15[facility] 04/14/2024 13:15:08 [place] BMI [...] DC Date Status Disposition Source [place] [facility] OUTPATIENT [id number] Notes Entered by: Rey STALLWORTH 03 Nov 2014 1002 ------- ------- ------- ------- -- Hearing Test LISET STALLWORTH 11/03 Released w/o Limitations [place] [place] [place] [facility] [place] OUTPATIENT [id number] SHAUNA AWAN 11/04 Released w/o Limitations [place] Optomet [facility]) [place] OUTPATIENT [id number] Notes Entered by: MADELYN MEI 07 Nov 2014 0814 ------- ------- ------- ------- -- YUSUF RAO 11/07 Released w/o Limitations [place] ) [place] [place] [facility] OUTPATIENT [id number] Notes Entered by: Darrian HUMPHREY 16 Nov 2014 0704 ------- ------- ------- ------- -- Ankle MALLORY HUMPHREY 11/16 Released with Work/Duty Limitations [place] ) [place] [place] [facility] OUTPATIENT [id number] Notes Entered by: Darrian HUMPHREY 17 Nov 2014 0727 ------- ------- ------- ------- -- Ankle MALLORY HUMPHREY 11/17 Released w/o Limitations [place] [place] [facility] ) [place] [facility] [facility] OUTPATIENT [id number] Notes Entered by: Darrian HUMPHREY 18 Nov 2014 0631 ------- ------- ------- ------- -- Ankle MALLORY HUMPHREY 11/18 Released w/o Limitations [place] [place] [facility] ) [place] [facility] [facility] OUTPATIENT [id number] Notes Entered by: Darrian HUMPHREY 21 Nov 2014 0618 ------- ------- ------- ------- -- Ankle MALLORY HUMPHREY 11/21 Released w/o Limitations [place] [facility] [id number] Notes Entered by: KIRA PEPPER 28 Dec 2014 0905 ------- ------- ------- ------- -- IMM-FLU SHOT MARY BARBOSA 12/28 Released w/o Limitations [place] [facility] [place] [id number] URI cold sx KAREEN BERTRAND 01/10 Released w/o Limitations [place] [facility] [facility] [place] [id number] Notes Entered by: TRUPTI LEE 19 Jan 2015 0635 ------- ------- ------- ------- -- IMM-HEP B(P)MMR /CARLY LORENZO 01/19 Released w/o Limitations [place] [facility] OUTPATIENT [id number] Notes Entered by: NIKKY VELASCO 01 Mar 2015 0914 ------- ------- ------- ------- -- [facility] WARNER GOMEZ 03/01 Released w/o Limitations [facility] ) OUTPATIENT [id number] ree [phone] SHAYAN RODRIGUEZ 06/29 Released w/o Limitations [facility]) OUTPATIENT [id number] R knee pain FAIR, [place]ANA[place]N POOLE 08/14 Released w/o Limitations [facility](Phys ical [facility]) OUTPATIENT [id number] Notes Entered by: Rubin MORENO 15 Aug 2015 0746 ------- ------- ------- ------- -- knee injury, sick call LEAH MORENO 08/14 Released w/o Limitations [facility]) [facility] ) OUTPATIENT [id number] f/u pt is request ing rosa cowart has prior prescri tion [phone] SHAYAN RODRIGUEZ 08/20 Released w/o Limitations [facility]) [facility](Phys ical Therapy [facility]) OUTPATIENT [id number] Notes Entered by: Rubin MORENO 22 Aug 2015 1117 ------- ------- ------- ------- -- knee f/u LEAH MORENO 08/21 Released w/o Limitations [facility](Ph ysical Therapy [facility]) [facility]) OUTPATIENT [id number] Notes Entered by: ADIN NIETO 07 Sep 2015 0947 ------- ------- ------- ------- -- PREETI HAYDEN 09/06 Released w/o Limitations [facility] ) [facility]) OUTPATIENT [id number] Notes Entered by: CANDI DIEGO 07 Sep 2015 1009 ------- ------- ------- ------- -- MIKE JEANGRETA Isha 09/06 Immediate Referral [facility]) [facility] Case Managemen t) OUTPATIENT [id number] Notes Entered by: MORIAH GUTIERREZ 07 Sep 2015 1150 ------- ------- ------- ------- -- NICK ALFARO 09/06 Released w/o Limitations [facility](SR P Case Managem ent) [facility]) OUTPATIENT [id number] Notes Entered by: Ashlyn YEE 11 Dec 2015 0901 ------- ------- ------- ------- -- reCARLI Garcia 12/10 Released w/o Limitations [facility]) [facility] OUTPATIENT [id number] Notes Entered by: SAIDA POWER 29 Jan 2016 1246 ------- ------- ------- ------- -- right index finger pain SAIDA POWER 01/28 Released w/o Limitations [facility] Rotatio [facility]al [facility]) [facility](Orthop edics [facility]) OUTPATIENT [id number] Notes Entered by: YAAKOV GOVEA 02 Feb 2016 1039 ------- ------- ------- ------- -- RIGHT INDEX FINGER KYLAH HOPKINS 02/01 Released with Work/Duty Limitations [facility]an[facility]th [facility]ed[facility]) [facility]) OUTPATIENT [id number] Finger JOSE ABERNATHY 02/20 Released w/o Limitations [facility]) [facility]) OUTPATIENT [id number] Notes Entered by: Ashlyn OSCAR 05 Mar 2016 0941 ------- ------- ------- ------- -- AGUSTO Kumar 03/05 Immediate Referral [facility]) [facility] Case Managemen t) OUTPATIENT [id number] Notes Entered by: KELLY BEAR 05 Mar 2016 1132 ------- ------- ------- ------- -- 136 IN - INITIAL KELLY BEAR 03/05 Released w/o Limitations [facility](SR P Case Managem ent) [facility](Cast Room) OUTPATIENT [id number] right index finger fx THAORIVERA 03/05 Released w/o Limitations [facility](Ca st Room) [facility] Case Managemen t) OUTPATIENT [id number] Notes Entered by: KELLY BEAR 05 Mar 2016 1410 ------- ------- ------- ------- -- 136 IN - CLEARED TO KELLY JACOBS 03/05 Released w/o Limitations [facility] Case Managem ent) [facility](Occu pational Therapy) OUTPATIENT [id number] initial evaluat ion/see consult IMELDA CRUZ 03/14 Released with Work/Duty Limitations [facility](Oc cupatio nal Therapy ) [facility](Cast Room) OUTPATIENT [id number] Follow up for the right index DANIEL DUMAS 03/14 Released w/o Limitations [facility](Ca st Room) [facility]) OUTPATIENT [id number] Notes Entered by: CHRISTEL LEPE 03 Jan 2017 1327 ------- ------- ------- ------- -- YIFAN ANDREW NEWTHIA 01/03 Released w/o Limitations [facility] ) [facility]) OUTPATIENT [id number] Notes Entered by: CARMELLA CHING 03 Jan 2017 1308 ------- ------- ------- ------- -- KYLE SOMMERS 01/03 Released w/o Limitations [facility]) [facility]) OUTPATIENT [id number] Notes Entered by: ADIN NIETO 09 Jan 2017 1246 ------- ------- ------- ------- -- FOLLOW UP R + APPT ALEXA GOMEZ JACQUE 01/09 Released w/o Limitations [facility] ) [facility]) OUTPATIENT [id number] Notes Entered by: RIVERA PACHECO 10 Mar 2017 0632 ------- ------- ------- ------- -- Sick call 1-36 HAKAN CHAO 03/10 Released w/o Limitations [facility] S[facility]) [facility](Jaciel s [facility] Program) OUTPATIENT [id number] H1 POS STS...4 [phone] LUANA OSBORNE 03/11 Released w/o Limitations [facility](Bi ggs [facility] Program ) [facility] OUTPATIENT [id number] ree [phone] SHAYAN RODRIGUEZ 04/07 Released w/o Limitations [facility]) [facility](Phys ical Therapy [facility]) OUTPATIENT [id number] Notes Entered by: Rubin MORENO 15 Jul 2017 0736 ------- ------- ------- ------- -- sick call back LEAH MORENO 07/15 Released w/o Limitations [facility](Ph ysical Therapy [facility]) [facility](Phys ical Therapy [facility]) OUTPATIENT [id number] Notes Entered by: Rubin MORENO 21 Jul 2017 0647 ------- ------- ------- ------- -- walk in f/u sick call LEAH MORENO 07/21 Released with Work/Duty Limitations [facility](Ph ysical Therapy [facility]) [facility]) OUTPATIENT [id number] ETS physica l [phone] JANES TRIPLETT 11/11 Released w/o Limitations [facility](AM H S[facility]) [place] OFFICE O/P EST LOW 20-29 MIN [id number] [id number] Diagnos is: ICD-10- CM 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, combine d type ST INESSA [place] 02[place] [facility] Outpatient Encounter [id number] 03/06 [facility] [place] [place] [facility] Outpatient Encounter [id number] 03/06 [facility] [place] [place] [facility] [place] OFF[place] O/P EST LOW 20-29 MIN [id number] [id number] Diagnos is: ICD-10- CM K21.9 Gastro- esophag eal reflux disease without esophag itis Ashlyn HOPKINS 03/18 [facility] OFF[facility] O/P EST LOW 20-29 MIN [id number] [id number] Diagnos is: ICD-10- CM F43.12 Post-tr aumatic stress disorde r, chronic HAWTHORNE,ST EVEN G 03/25 [place] [facility] En[facility] [id number] 04/03 [facility] [place] [place] PT EDUCATION NOC INDIVID [id number] [id number] Diagnos is: ICD-10- CM M25.561 Pain in right knee MINOR MENDOZA IC K 04/03 [place] [facility] En[facility] [id number] 04/03 [facility] [place] [place] [place] OFF[place] O/P EST MOD 30 MIN [id number] [id number] Diagnos is: ICD-10- CM M25.561 Pain in right knee SANDEEP,Ashlyn POLINARIO 04/15 [place] Out[place] Encounter [id number] 04/22 [facility]P EST LOW 20 MIN [id number] [id number] Diagnos is: ICD-10- CM F43.12 Post-tr aumatic stress disorde r, chronic HAWTHORNE,ST EVEN G 05/06 [place] [facility] En[facility] [id number] 05/08 [facility] [place] [place] [facility] Encounter [id number] 05/09 [facility] [place] [place] [place] Outpatient Encounter [id number] [id number] 05/13 [place] [facility] Encounter [id number] 05/13 [facility] [place] [place] [facility] SELF-MGMT EDUC & TRAIN 1 PT [id number] [id number] Diagnos is: ICD-10- CM G47.33 Obstruc tive sleep apnea (adult) ([facility]) FANG MARINO BJ 05/15 [facility] Encounter [id number] 05/20 [facility] [place] [place] [facility] Outpatient Encounter [id number] [id number] 05/20 [facility] Outpatient Encounter [id number] [id number] 06/02 [facility] Encounter [id number] 06/04 [facility] En[facility] [id number] 06/08 [facility] Encounter [id number] 06/08 [facility] Encounter [id number] 06/08 [facility] [place] [place] [facility] OFFICE O/P EST MOD 30 MIN [id number] [id number] Diagnos is: ICD-10- CM M25.549 Pain in joints of unspeci fied hand Ashlyn HOPKINS 06/09 [place] [facility] En[facility] [id number] 06/09 [facility] Outpatient Encounter [id number] 06/10 [facility] [place] [place] SLEEP STUDY UNATT&RESP EFFT [id number] [id number] Diagnos is: ICD-10- CM G47.33 Obstruc tive sleep apnea (adult) ([facility]) FANG MARINO BJ 06/10 [place] [facility] [facility] [place] OFFICE O/P EST MOD 30 MIN [id number] [id number] Diagnos is: ICD-10- CM M25.561 Pain in right knee NATALIE,L CAPRI H 06/11 [place] [facility] SLEEP STUDY UNATT&RESP EFFT [id number] Diagnos is: ICD-10- CM G47.33 Obstruc tive sleep apnea (adult) ([facility]) JACQUE ALCOCER 06/18 [facility] [place] [facility] O/P EST MOD 30 MIN [id number] [id number] Diagnos is: ICD-10- CM G47.33 Obstruc tive sleep apnea (adult) ([facility]) Ashlyn HOPKINS 06/25 [place] SELF CARE MNGMENT TRAINING [id number] [id number] Diagnos is: ICD-10- CM M25.561 Pain in right knee LORNE GERBERFABIOLA STAFFORD 07/07 [place] [facility] [facility] Outpatient Encounter [id number] 07/20 [facility] [place] [place] [facility] [place] OFF/OP EST MAY X REQ PHY/QHP [id number] [id number] Diagnos is: ICD-10- CM Z23 Encount er for immuniz ation NATALIE,L CAPRI H 07/27 [place] OFFICE O/P EST MOD 30 MIN [id number] [id number] Diagnos is: ICD-10- CM G47.33 Obstruc tive sleep apnea (adult) ([facility]) SANDEEPAshlyn IRENE 07/30 [place] [facility] En[facility] [id number] 08/05 [facility] En[facility] [id number] 08/05 [facility] [place] SELF CARE MNGMENT TRAINING [id number] [id number] Diagnos is: ICD-10- CM M25.561 Pain in right knee LORNE GERBER STAFFORD 08/13 [place] [facility] POS AIRWAY PRESSURE FILTER [id number] Diagnos is: ICD-10- CM G47.33 Obstruc tive sleep apnea (adult) ([facility]) E P 08/20 [facility] En[facility] [id number] 08/25 [facility] En[facility] [id number] 08/25 [facility] REPL ORAL CUSHION COMBO MASK [id number] [id number] Diagnos is: ICD-10- CM G47.33 Obstruc tive sleep apnea (adult) ([facility]) MAHAMED E P 09/10 [facility] [place] POS AIRWAY PRESSURE CPAP [id number] [id number] Diagnos is: ICD-10- CM G47.33 Obstruc tive sleep apnea (adult) ([facility]) MATT [place]O A 09/23 [place] COLLJ & INTERPJ DATA EA 30 D [id number] [id number] Diagnos is: ICD-10- CM G47.33 Obstruc tive sleep apnea (adult) ([facility]) MATT [place] A 11/11 [place] SELF CARE MNGMENT TRAINING [id number] [id number] Diagnos is: ICD-10- CM M25.561 Pain in right knee GERBER PRADHAN 12/01 [place] THERAPEUTI C EXERCISES [id number] [id number] Diagnos is: ICD-10- CM M25.561 Pain in right knee Wendy KELLEY 12/17 [place] THERAPEUTI C EXERCISES 04020-6.63 [id number] Diagnos is: ICD-10- CM M25.561 Pain in right knee Wendy KELLEY 12/24 [place] THERAPEUTI C EXERCISES [id number] [id number] Diagnos is: ICD-10- CM M25.561 Pain in right knee Wendy KELLEY 01/07 [place] THERAPEUTI C EXERCISES 65452-5.63 [id number] Diagnos is: ICD-10- CM M25.561 Pain in right knee Wendy KELLEY 01/14 [place] [facility] Out[facility] Encounter [id number] 01/23 [facility] En[facility] [id number]/25 [facility] Encounter [id number] 03/08 [facility] Out[facility] Encounter [id number] 03/11 [facility] Outpatient Encounter [id number] 04/05 [facility] PH1 ASSMT&MGMT NQHP 21-30 [id number] [id number] Diagnos is: ICD-10- CM F43.12 Post-tr aumatic stress disorde r, chronic LINDERME,K LEV M 04/05 [facility] PSYTX W PT 30 MINUTES [id number] Diagnos is: ICD-10- CM 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, combine d type Hiram LEMUS 04/06 [facility] [place] [facility] OFFICE O/P EST MOD 30 MIN [id number] [id number] Diagnos is: ICD-10- CM J06.9 Acute upper respira tory infecti on, unspeci fied TARIQ,FELIPE DEBORADA TRUNG 04/14 [facility] CASE MANAGEMENT [id number] [id number] Diagnos is: ICD-10- CM F43.12 Post-tr aumatic stress disorde r, chronic HIMA,W LARON 04/22 [facility] OFFICE O/P EST LOW 20 MIN [id number] [id number] Diagnos is: ICD-10- CM F43.12 Post-tr aumatic stress disorde r, chronic HAWTHORNE,ST EVEN G 04/26 [facility] Outpatient Encounter [id number] 04/29 [facility] En[facility] [id number] 05/14 [facility] En[facility] [id number] 05/18 [facility] [place] O/P EST LOW 20 MIN [id number] [id number] Diagnos is: ICD-10- CM F43.12 Post-tr aumatic stress disorde r, chronic HAWTHORNE,ST EVEN G 05/27 [place] [facility] Out[facility] Encounter [id number] 06/02 [facility] [place] [facility] Outpatient Encounter [id number] 06/07 [facility] [place] Outpatient Encounter [id number] 06/18 [facility] [place] O/P EST LOW 20 MIN [id number] [id number] Diagnos is: ICD-10- CM F43.12 Post-tr aumatic stress disorde r, chronic HAWTHORNE,ST EVEN G 06/22 [place] [facility] Out[facility] Encounter [id number] 07/16 [facility] Encounter [id number] 07/21 [facility] Encounter [id number] 07/22 [facility] Encounter [id number] 07/23 [place] [facility] [place] [facility] Outpatient Encounter [id number] 07[facility] Procedures Combined list of: 1) Procedures from Department of Veterans Affairs facilities going back up to thelast 18 months, not all VA non-surgical procedures are included; 2) All procedures from the Department of Defense facilities. Procedure Procedure Type Code Date Perfomer Comments Sourc e FINGER SPLINT, STATIC [facility] APPLICATION OF FINGER SPLINT; STATIC [facility] IMMUNIZATION ADMINISTRATION (INCLUDES PERCUTANEOUS, INTRADERMAL, SUBCUTANEOUS, OR INTRAMUSCULAR INJECTIONS); EACH ADDITIONAL VACCINE (SINGLE OR COMBINATION VACCINE/TOXOID) [facility] INFLUENZA VIRUS VACCINE, TRIVALENT (IIV3), SPLIT VIRUS, 0.5 ML DOSAGE, FOR INTRAMUSCULAR USE [facility] INJECTION, PENICILLIN G BENZATHINE, 100,000 UNITS [facility] FITTING OF SPECTACLES, EXCEPT FOR APHAKIA; MONOFOCAL [facility] PURE TONE AUDIOMETRY (THRESHOLD), AUTOMATED; AIR ONLY DoD THERAPEUTIC PROCEDURE, 1 OR MORE AREAS, EACH 15 MINUTES; THERAPEUTIC EXERCISES TO DEVELOP STRENGTH AND ENDURANCE, RANGE OF MOTION AND FLEXIBILITY DoD THERAPEUTIC PROCEDURE, 1 OR MORE AREAS, EACH 15 MINUTES; THERAPEUTIC EXERCISES TO DEVELOP STRENGTH AND ENDURANCE, RANGE OF MOTION AND FLEXIBILITY [facility] PRESCRIPTION OF OPTICAL AND PHYSICAL CHARACTERISTICS OF [...] EFFLEURAGE, PETRISSAGE AND/OR TAPOTEMENT (STROKING, COMPRESSION, PERCUSSION) [facility] CASE MANAGEMENT, EACH 15 MINUTES [facility] POLIOVIRUS VACCINE, INACTIVATED (IPV), FOR SUBCUTANEOUS OR INTRAMUSCULAR USE [facility] FITTING OF SPECTACLES, EXCEPT FOR APHAKIA; MONOFOCAL [facility] CASE MANAGEMENT, EACH 15 MINUTES [facility] PURE TONE AUDIOMETRY (THRESHOLD), AUTOMATED; AIR ONLY [facility] THERAPEUTIC PROCEDURE, 1 OR MORE AREAS, EACH 15 MINUTES; THERAPEUTIC EXERCISES TO DEVELOP STRENGTH AND ENDURANCE, RANGE OF MOTION AND FLEXIBILITY [facility] PRESCRIPTION OF OPTICAL AND PHYSICAL CHARACTERISTICS OF AND FITTING OF CONTACT LENS, WITH MEDICAL SUPERVISION OF ADAPTATION; CORNEAL LENS, BOTH EYES, EXCEPT FOR APHAKIA [facility] THERAPEUTIC PROCEDURE, 1 OR MORE AREAS, EACH 15 MINUTES; THERAPEUTIC EXERCISES TO DEVELOP STRENGTH AND ENDURANCE, RANGE OF MOTION AND FLEXIBILITY [facility] DETERMINATION OF REFRACTIVE STATE [facility] Physical Therapy: ___ Se ion Segments, 15 Minutes Each Physical Therapy: ___ Session Segments, 15 Minutes Each 42112 LEAH MORENO Osteopathic Manip Treatment (OMT) 1-2 Body Regions Involved Osteopathic Manip Treatment (OMT) 1-2 Body Regions Involved 30774 LEAH WEINSTEIN Physical Medicine Physical Therapy Re-Evaluation Physical Medicine Physical Therapy Re-Evaluation 82767 LEAH WEINSTEIN Physical Therapy: ___ Se ion Segments, 15 Minutes Each Physical Therapy: ___ Session Segments, 15 Minutes Each 22187 LEAH WEINSTEIN Ophthalmological Prior Patient Start Intermediate Level Care Ophthalmological Prior Patient Start Intermediate Level Care 10105 018 SHAYAN RODRIGUEZ Determination Of Refractive State Determination Of Refractive State 44265 018 SHAYAN RODRIGUEZ Prescription & Fitting Bilateral Corneal Lenses (Not Aphakia Prescription & Fitting Bilateral Corneal Lenses (Not Aphakia 82821 018 SHAYAN RODRIGUEZ Threshold Audiogram (Pure Tone) Threshold Audiogram (Pure Tone) 16590 017 LUANA OSBORNE [facility] Health And Behav A e mt Each 15 Min Initial A e ment Health And Behav Assessmt Each 15 Min Initial Assessment 00380 017 LUANA OSBORNE [facility] Threshold Audiogram (Pure Tone) Automated Threshold Audiogram (Pure Tone) Automated 0208T 017 JACQUE DYER Threshold Audiogram (Pure Tone) Automated Threshold Audiogram (Pure Tone) Automated 0208T JACQUE DYER Physical Therapy Ma age Physical Therapy Massage 12872 IMELDA CRUZ Mobilization Soft Ti ue Mobilization Soft Tissue 70910 IMELDA CRUZ Occupational Therapy Evaluation Occupational Therapy Evaluation 39912 IMELDA CRUZ Exercises A isted Exercises For ROM Exercises Assisted [place]ercises [place] ROM 27285 IMELDA CRUZ Case Management, each 15 minutes KELLY BEAR Coordinated care fee, maintenance rate KELLY BEAR Vaccines Viral Polio, Inactivated (Salk) Vaccines Viral Polio, Inactivated (Salk) 28526 AGUSTO RENAE Typhoid Vaccine Vi Capsular Polysaccharide, For Intramus Use Typhoid Vaccine Vi Capsular Polysaccharide, For Intramus Use [address]Supervised Services Provision Of Special Supplies -Supervised Services Provision Of Special Supplies 32992 KYLAH SONG supplies issued for dressing changes [facility] Finger splint, static KYLAH SONG Orthopedic Splinting Finger Static Orthopedic Splinting Finger Static 22072 KYLAH SONG Wound Care Debridement Non-Selective KYLAH SONG Spectacles Services Fitting Monofocals (Not For Aphakia) Spectacles Services Fitting Monofocals (Not For Aphakia) 15485 EMORY YEE Threshold Audiogram (Pure Tone) Automated Threshold Audiogram (Pure Tone) Automated 0208T PREETI MON Coordinated care fee, maintenance rate NICK ALAN Case Management, each 15 minutes NICK ALAN Exercises A isted Exercises For ROM Exercises Assisted Exercises For ROM 07010 016 LEAH MORENO Physical Medicine Physical Therapy Re-Evaluation Physical Medicine Physical Therapy Re-Evaluation 80466 LEAH MORENO Prescription & Fitting Bilateral Corneal Lenses (Not Aphakia Prescription & Fitting Bilateral Corneal Lenses (Not Aphakia 97035 SHAYAN RODRIGUEZ Ophthalmological Prior Patient Start Comprehensive Care Ophthalmological Prior Patient Start Comprehensive Care 54326 SHAYAN RODRIGUEZ Exercises A isted Exercises For ROM Exercises Assisted [place]ercises [place] ROM 59538 016 LEAH MORENO Physical Medicine Physical Therapy Evaluation Physical Medicine Physical Therapy Evaluation 00974 LEAH MORENO Spectacles Services Fitting Monofocals (Not For Aphakia) Spectacles Services Fitting Monofocals (Not For Aphakia) 88725 016 SHAYAN RODRIGUEZ Determination Of Refractive State Determination Of Refractive State 65317 SHAYAN RODRIGUEZ Ophthalmological New Patient Start Comprehensive Care Ophthalmological New Patient Start Comprehensive Care 85233 SHAYAN RODRIGUEZ Vaccines Viral Varicella (Active) Vaccines Viral Varicella (Active) 58989 CARLY KWON Vaccines Viral Measles, Mumps and Rubella, Live Vaccines Viral Measles, Mumps and Rubella, Live 94313 CARLY KWON Immunization Administration Each Additional Vaccine Immunization Administration Each Additional Vaccine 02722 CARLY KWON Immunization Administration One Vaccine Immunization Administration One Vaccine 80431 CARLY KWON Influenza Split Virus Vaccine Age 3+ Years Intramuscular MARY BARBOSA Immunization Administration One Vaccine Immunization Administration One Vaccine [address] Supervised Injection Intramuscular Antibiotic Supervised Injection Intramuscular Antibiotic 56106 YUSUF VELAZQUEZ Injection, penicillin g benzathine, 100,000 units YUSUF VELAZQUEZ Visit for an IM injection of 1.2 million/units per 2 mL of Bicillin L-A (Penicillin G Benxathine injectable suspension). Was given in the Left upper quadrant, left buttock. Patient was observed for 15 min with no adverse reactions. DoD Vaccines Adenovirus Type 7 Live, For Oral Use Vaccines Adenovirus Type 7 Live, For Oral Use 00485 YUSUF VELAZQUEZ A single vaccine dose administered orally. DoD Vaccines Adenovirus Type 4 Live, For Oral Use Vaccines Adenovirus Type 4 Live, For Oral Use 35619 YUSUF VELAZQUEZ A single vaccine dose administered orally. DoD Immunization Admin Intranasal / Oral Each Additional Vaccine Immunization Admin Intranasal / Oral Each Additional Vaccine 48007 YUSUF VELAZQUEZ DoD Hep B Vaccine (Active); Adolescent (2 Dose Schedule) Hep B Vaccine (Active); Adolescent (2 Dose Schedule) 63074 YUSUF VELAZQUEZ Visit for an IM injection of 0.5mL of Hepatitis B (Engerix-B) pediatric dose. Was given in the Right Deltoid. Patient was observed for 15 min with no adverse reactions. DoD Vaccines Viral Varicella (Active) Vaccines Viral Varicella (Active) 90258 YUSUF VELAZQUEZ Visit for a SQ injection of 0.5mL of Varicella. Was given in the Right Tricep. Patient was observed for 15 min with no adverse reactions. DoD Vaccines Viral Measles, Mumps and Rubella, Live Vaccines Viral Measles, Mumps and Rubella, Live 51052 YUSUF VELAZQUEZ Visit for a SQ injection of 0.5mL of MMR (Measles, Mumps, and Rubella). Was given in the Right Tricep. Patient was observed for 15 min with no adverse reactions DoD Vaccines Viral Polio, Inactivated (Salk) Vaccines Viral Polio, Inactivated (Salk) 04222 YUSUF VELAZQUEZ Visit for an IM injection [...] for 15 min with no adverse reactions. [facility] Tdap Vaccine Tdap Vaccine 72848 015 YUSUF VELAZQUEZ Visit for an IM injection of 0.5mL of Boostrix (Tetanus and Diphtheria Toxoids and Acellular Pertussis). Was given in the Right Deltoid. Patient was observed for 15 min with no adverse reactions. [facility] Immunization Administration One Vaccine Immunization Administration One Vaccine 53064 YUSUF VELAZQUEZ [facility] Immunization Administration Each Additional Vaccine Immunization Administration Each Additional Vaccine 51182 YUSUF VELAZQUEZ [facility] Spectacles Services Fitting Monofocals (Not For Aphakia) [employer] Fitting Monofocals (Not For Aphakia) 48331 SHAUNA AWAN 42/24 M40 50/24 5A 48/22 [facility] Ear Protector Attenuation Measurements Ear Protector Attenuation Measurements 28833 LISET GARIBAY [facility] Threshold Audiogram (Pure Tone) Automated Threshold Audiogram (Pure Tone) Automated 0208T LISET GARIBAY [facility] -Supervised Services Provision Of Special Supplies -Supervised Services Provision Of Special Supplies 18520 LISET GARIBAY [facility] Social History Combined list of available smoking, tobacco, and other social history from Department of Defense and Veterans Affairs facilities. Social History Type Response Date Comment Sourc e Tobacco smoking status NHIS VA-TOBACCO NEVER USED OTHER TYPE 04/14/2024 [facility] History of tobacco use VA-TOBACCO NEVER USED CIGARETTES 04/14/2024 [facility] History of tobacco use VA-TOBACCO NEVER USED 03/18/2023 [facility] D History of tobacco use VA-TOBACCO NEVER USED 04/09/2022 [facility] D History of tobacco use VA-TOBACCO FORMER USER 04/05/2021 [place] [facility] [place] [facility] History of tobacco use VA-TOBACCO NEVER USED 06/30/2019 [facility] D This section is an empty social history section. [facility] Plan of Care List of future care activities from Department of Veterans Affairs facilities. Additional future care activities may be listed in the Assessment and Plan section. Date/Time Care Activity Care Activity Detail Facili ty 08/19/2024 AMBULATORY - MEDICINE AM[place]ULATORY [place] [facility] [place] [facility]
--- OUTSIDE RECORDS SUMMARY | 2024-08-11 12:05 | XMS_ITS | Clinical Summary ---
Author Organization [employer] [facility] ity Address [address] [place] [address] Care Team Providers Care Machine Whitener Name Role Phone Unavailable Primary Care Provider [...]
--- OUTSIDE RECORDS SUMMARY | 2024-08-11 12:05 | XMS_ITS | Data Portability ---
Author Organization [facility] [address] Address [address] [place] [address] Assessment Encounter Date Assessment Date Assessment LastModified [...] Blood in Urine. Thank you for using [employer], please feel free to contact us if you have any questions or concerns. rylee Not available 07/18/2023 09:58:02 Plan of Treatment Reminders Order Date Submit Date Provider Last Modified By Organization Details Last Modified Time Details Appointments None recorded. Lab None recorded. Referral None recorded. Procedures None recorded. Surgeries None recorded. Imaging None recorded. Medication Orders Imodium A-D 2 mg tablet [address] [id number], [address] [place], [address], 09:57:44 ondansetron 4 mg disintegrat ing tablet 2023 024 [facility]/Pharmacy #[id number], [address] [place], [address], 09:57:44 Patient TargetsNo targets recorded. Patient Instructions Encounter Date Encounter Id Patient Instructions Last Modified By Organization Details Last Modified Time 07/18/2023 [id number] diarrhea: care instructions ronchaga Not available 07/18/2023 09:57:42 managing nausea from cancer treatment: care instructions ronchaga Not available 07/18/2023 09:57:42 gastroenteritis: care instructions ronchaga Not available 07/18/2023 09:57:42 Reason for Referral None Reported. Problems Name Problem SNOMED Code Status Onset Date Resolution Date Notes Provider Name and Address Organization Details Recorded Time Gastroenteritis 46276568 Active 2023 KIRA FIELDS NP [address] , [place], [place], [address], [place] - [facility] 09:55:10 Nausea, vomiting and diarrhea 4711739 Active 2023 KIRA FIELDS NP [address] , [place], [address], [place] - [facility] 4 09:55:19 Diarrhea 27230925 Active 2023 KIRA FIELDS NP [address], [place], [address], [place] - [facility] 09:55:41 [...] Updated DateTime 4 177.8 cm 30.8 kg/m2 46556.3 6 g 98 % 98 % 16 /min 97.8 [degF] 118 mm[Hg] 82 mm[Hg] Vida Rivera PA - [facility] 09:40:23 Social History Question Answer Notes LastModified by [email or web address] Details LastModified Time Tobacco Smoking Status Never Smoker Vida Rivera sierra [place] - [facility] 07/18/2023 09:41:33 Which Illicit Or Recreational Drugs Have You [...] Tobacco Screening? 07/18/2023 Information not available 07/18/2023 Have You Recently Traveled Abroad? No Information not available 07/18/2023 Sex: Unknown Functional Status Question Answer Note LastModified by [email or web address] Details LastModified Time Do you use any illicit or recreational drugs? Yes Information not available 07/18/2023 Do you or have you ever used any other forms of tobacco or nicotine? No Information not available 07/18/2023 What is your level of alcohol consumption? None Information not available 07/18/2023 Are you currently employed? Yes Information not available 07/18/2023 Mental Status None recorded. Family History Relationship Description Onset Age of this Age Resolved Age Notes LastModified by Organization Details LastModified Time Mother Diabetes mellitus Not available 2023 09:41:04 Father Hypertensive disorder Not available 2023 09:41:17 Medical History No medical history recorded. Past Encounters Encounter ID Performer Location Encounter Start Date Encounter Closed Date Diagnosis/Indication Diagnosis SNOMED-CT Code Diagnosis ICD10 Code Diagnosis Note [id number] [address] [place] [address] 12/21/2021 12:08:55 12/21/2021 13:39:30 [id number] [facility] [place] [address] 03/29/2020 10:58:17 03/29/2020 15:58:49 [id number] [address] [place] [address] 06/26/2021 16:55:45 06/26/2021 17:53:15 [id number] [address] [place] [address] 10/22/2019 14:19:12 10/22/2019 15:40:31 [id number] KIRA FIELDS, PERSONAL PROPERTY ASSESSOR [address] [place] [address] 07/18/2023 09:22:00 07/18/2023 10:02:28 Nausea, vomiting and diarrhea 1202199 R11.2 Gastroenteritis 07148397 K52.9 Diarrhea 64986518 R19.7 Health Concerns Section Related Observation LastModified by Organization Detai ls LastModified Time None Recorded Concern Status LastModified by Organization Details LastModified Time None Recorded Advance Directives Directive None Recorded Payers Insurance Date Sequence Insurance Name Policy Number Policy Leon Covered Member ID Leon Member ID Guarantor Name 07/19/2023 [facility] Emile Cornelius [id number] Emile Cornelius Notes Date Note Type Note [...] FIELDS NP [address] [place], [address], [place] - [facility] 07/18/2023 11:11:04
== END 2024-08-11 12:10 | disposition home or self-care (01) ==
LOC: HO.HBS 11:02
PROVIDERS: PCP Nurse Practitioner Gerontology; Visit Provider Surgery
DX: K44.0 Diaphragmatic hernia with obstruction, without gangrene (principal)
CPT/HCPCS: 99204

== ENCOUNTER → 2024-08-11 11:01 | Outpatient (BNVA) | payer OTHER, SELFPAY | PROVIDERS: PCP Nurse Practitioner Gerontology; Visit Provider Surgery | DX: Z01.818 Encounter for other preprocedural examination (principal); K21.9 Gastro-esophageal reflux disease without esophagitis; K44.9 Diaphragmatic hernia without obstruction or gangrene | CPT/HCPCS: 99202 ==

== ENCOUNTER 2024-08-16 12:27 | Outpatient (AMB) | payer OTHER, SELFPAY ==
--- NOTE | 2024-08-16 12:29 | A.OFFVIS_ITS ---
Vital Signs 08/16/24 12:30 Height 5 ft 10 in Weight 228 lb BMI 32.7 BP 118/71 Blood Pressure Location Lt brachial Position Sitting Pulse 83 Pulse Oximetry (%) 99 Oxygen Delivery Method Room Air Intake Visit Reasons: f/u double Intake Note: Patient follow up for EGD/Colonoscopy results. Patient denies any GI issues for today visit. Senior Policy Associate Required: No Accompanied by: Self / Same As Patient Allergies pollen Allergy (Unknown, Uncoded 08/11/24 11:58) Unknown HPI HPI f/u double: Details: 29 yr old m being seen for assessment RECAP: He has issues with crampy pain on and off 4 months around umbilical area not relieved with passing gas or stool, no worsening factors goes daily to bath, but stools more softer than normal, shape also changed, seen blood when wipes no n/v he takes omeprazole for gerd and it works he has bloating sometimes EGD/colo: 07/23 Endoscopy Findings: hiatal hernia esophagitis schatzki ring gastritis Colonoscopy Findings: internal hemorrhoids PATH: ileitis chronic esophagitis at [facility] and duodenitis INTERIM: weight is stable appetite is fair mild rlq abdo pain gerd controlled with PPI no n/v not taking nsaids EXAM: GENERAL: The patient is well developed and nontoxic. VITAL SIGNS:see workflow HEENT: Nonicteric sclerae, PERRLA, EOMI. Oropharynx clear. Moist mucous membranes. Conjunctivae appear well perfused. No thyroid mass. CHEST: Chest wall is nontender. HEART: Regular rate and rhythm without murmurs. LUNGS: Clear to auscultation bilaterally. ABDOMEN: Soft, positive bowel sounds, tender RLQ, no organomegaly.no flank tenderness SKIN: No rash, no excessive bruising, petechiae, or purpura. NEUROLOGIC: Cranial nerves II-XII intact without motor/sensory deficit. Psych: normal affect A/P: 1/ hiatal hernia, by EGD, 5 cm--saw Dr Brooke 2/ focal ileitis and RLQ pain, PLAN: 1/ await CT e 2/ cont with PPI as helping him 3/ f/u with Dr Brooke after CT PENDING SALE TO [facility] Medical History (Updated 08/11/24 @ 12:03 by Isaak Craven MD) BMI 32.0-32.9,adult Obesity Diaphragmatic hernia Depression GERD (gastroesophageal reflux disease) Surgical History Hx of knee surgery Family History Maternal Grandfather Colon cancer Maternal Uncle Colon cancer Mother No problems noted. Father No problems noted. Social History Alcohol intake: never Patient Tobacco Use Status: Never used Tobacco Physical Exam Vital Signs: Last Vital Signs Pulse 83 08/16/24 12:30 BP 118/71 08/16/24 12:30 Pulse Ox 99 08/16/24 12:30 Oxygen Delivery Method Room Air 08/16/24 12:30 BMI result Body Mass Index 32.7 Assessment & Plan Assessment & Plan (1) Diaphragmatic hernia: Code(s): K44.9 - Diaphragmatic hernia without obstruction or gangrene Category: Medical Qualifiers: Obstruction and gangrene presence: with obstruction but without gangrene Qualified Code(s): K44.0 - Diaphragmatic hernia with obstruction, without gangr alycia Plan: as above Coding Level of Care Code Est Pt Level 3 (22489) Diagnoses Diaphragmatic hernia with obstruction, without gangrene K44.0 Obstruction and gangrene presence: with obstruction but without gangrene
[2024-08-16 12:30] VITALS: BP 118/71; PULSE 83; O2SAT 99; BMI 32.7
--- OUTSIDE RECORDS SUMMARY | 2024-08-16 12:49 | XMS_ITS | Clinical Summary ---
Author Organization [employer] [facility] ity Address [address] [place] [address] Care Team Providers Care Die Cutter Name Role Phone Unavailable Primary Care Provider [...]
--- OUTSIDE RECORDS SUMMARY | 2024-08-16 12:49 | XMS_ITS | Data Portability ---
Author Organization [facility] [address] Address [address] [place] [address] Assessment Encounter Date Assessment Date Assessment LastModified [...] Blood in Urine. Thank you for using [employer], please feel free to contact us if you have any questions or concerns. rylee Not available 07/18/2023 09:58:02 Plan of Treatment Reminders Order Date Submit Date Provider Last Modified By Organization Details Last Modified Time Details Appointments None recorded. Lab None recorded. Referral None recorded. Procedures None recorded. Surgeries None recorded. Imaging None recorded. Medication Orders Imodium A-D 2 mg tablet 2023 024 [facility]/Pharmacy #[id number], [address] [place], [address], 09:57:44 ondansetron 4 mg disintegrat ing tablet 2023 024 [facility]/Pharmacy #[id number], [address] [place], [address], 09:57:44 Patient TargetsNo targets recorded. Patient Instructions Encounter Date Encounter Id Patient Instructions Last Modified By Organization Details Last Modified Time 07/18/2023 [id number] diarrhea: care instructions ronchaga Not available 07/18/2023 09:57:42 managing nausea from cancer treatment: care instructions ronchaga Not available 07/18/2023 09:57:42 gastroenteritis: care instructions ronchaga Not available 07/18/2023 09:57:42 Reason for Referral None Reported. Problems Name Problem SNOMED Code Status Onset Date Resolution Date Notes Provider Name and Address Organization Details Recorded Time Gastroenteritis 67045682 Active 2023 KIRA FIELDS NP [address] , [place], [place], [address], [place] - [facility] 09:55:10 Nausea, vomiting and diarrhea 1288614 Active 2023 KIRA FIELDS NP [address] , [place], [address], [place] - [facility] 4 09:55:19 Diarrhea 28410328 Active 2023 KIRA FIELDS NP [address], [place], [address], [place] - [facility] 09:55:41 [...] Updated DateTime 4 177.8 cm 30.8 kg/m2 32530.3 6 g 98 % 98 % 16 /min 97.8 [degF] 118 mm[Hg] 82 mm[Hg] Vida Rivera PA - [facility] 09:40:23 Social History Question Answer Notes LastModified by [employer] Details LastModified Time Tobacco Smoking Status Never [...] Functional Status Question Answer Note LastModified by [employer] Details LastModified Time Do you use any [...] SNOMED-CT Code Diagnosis ICD10 Code Diagnosis Note [id number] [address] [facility] [place] [address] 12/21/2021 12:08:55 12/21/2021 13:39:30 [id number] [address] [place] [address] 03/29/2020 10:58:17 03/29/2020 15:58:49 [id number] [address] [place] [address] 06/26/2021 16:55:45 06/26/2021 17:53:15 [id number] [address] [place] [address] 10/22/2019 14:19:12 10/22/2019 15:40:31 [id number] KIRA FIELDS, FACILITY ASSISTANT [address] [place] [address] 07/18/2023 09:22:00 07/18/2023 10:02:28 Nausea, vomiting and diarrhea 8839015 R11.2 Gastroenteritis 84095283 K52.9 Diarrhea 51218623 R19.7 Health Concerns Section Related Observation LastModified by Organization Detai ls LastModified Time None Recorded Concern Status LastModified by Organization Details LastModified Time None Recorded Advance Directives Directive None Recorded Payers Insurance Date Sequence Insurance Name Policy Number Policy Leon Covered Member ID Leon Member ID Guarantor Name 07/19/2023 [facility]) Emile Cornelius [id number] Emile Cornelius Notes Date Note Type Note [...] FIELDS NP [address] [place], [address], [place] - [facility] 07/18/2023 11:11:04
== END 2024-08-16 13:12 | disposition home or self-care (01) ==
PROVIDERS: PCP Nurse Practitioner Gerontology; Visit Provider Internal Medicine Gastroenterology
DX: K44.0 Diaphragmatic hernia with obstruction, without gangrene (principal)
CPT/HCPCS: 99213

== ENCOUNTER → 2024-08-16 12:27 | Outpatient (BNVA) | payer OTHER, SELFPAY | PROVIDERS: PCP Nurse Practitioner Gerontology; Visit Provider Internal Medicine Gastroenterology | DX: K44.0 Diaphragmatic hernia with obstruction, without gangrene (principal) | CPT/HCPCS: 99212 ==

== ENCOUNTER 2024-09-23 08:16 | Outpatient (REF) | payer OTHER, SELFPAY ==
--- NOTE | ~2024-09-23 | CT_ITS ---
CLINICAL HISTORY: R10.33 - Periumbilical pain --- Additional Notes or Special Instructions: ielitis on colonoscopy CT abdomen and pelvis with contrast Comparison: None provided Findings: No consolidation or effusion. There is a sliding-type hiatal hernia. Appearance of the liver suggests fatty infiltration without focal lesion. Unremarkable gallbladder and solid organs. No urolithiasis. No bowel obstruction, pneumoperitoneum, or pneumatosis. Are no abnormal appearing loops of small bowel. Pelvic contents unremarkable. Normal appendix. The bones are intact. IMPRESSION: Hepatic steatosis. This document has been electronically signed by: Lenard Peoples MD on 09/24/2024 08:56:51
[2024-09-23] MEDS: iohexoL 350 MG/ML 100 ML INFUS..BTL 85 ML IV (10:03)
[2024-09-23] MEDS: Sorbitol/Mannit/Xanth Imaging 500 ML LIQUID 1500 ML PO (10:05)
== END 2024-09-23 08:17 | disposition home or self-care (01) ==
LOC: HO.CT 08:16
PROVIDERS: PCP Nurse Practitioner Gerontology; Visit Provider Internal Medicine Gastroenterology
DX: R10.33 Periumbilical pain (principal)
CPT/HCPCS: 74177; Q9967

== ENCOUNTER → 2024-09-23 08:20 | Outpatient (BNV) | payer OTHER, SELFPAY | PROVIDERS: PCP Nurse Practitioner Gerontology; Visit Provider Specialist | DX: K76.0 Fatty (change of) liver, not elsewhere classified (principal) | CPT/HCPCS: 74177 ==

== ENCOUNTER 2024-12-27 10:03 | Outpatient (AMB) | payer OTHER, SELFPAY ==
--- NOTE | 2024-12-27 10:07 | MHC.OFFVIS ---
Vital Signs 12/27/24 10:09 Height 5 ft 10 in Weight 229 lb 4.492 oz BMI 32.9 BP 130/81 Blood Pressure Location Lt brachial Position Sitting Pulse 72 Intake Visit Reasons: 4m Allergies pollen Allergy (Unknown, Uncoded 12/27/24 10:09) Unknown HPI HPI 4m: Details: 29 yr old m being seen for assessment RECAP: He has issues with crampy pain on and off 4 months around umbilical area not relieved with passing gas or stool, no worsening factors goes daily to bath, but stools more softer than normal, shape also changed, seen blood when wipes no n/v he takes omeprazole for gerd and it works he has bloating sometimes EGD/colo: 07/23 Endoscopy Findings: hiatal hernia esophagitis schatzki ring gastritis Colonoscopy Findings: internal hemorrhoids PATH: ileitis chronic esophagitis at [facility]J and duodenitis INTERIM: He had CT --no ileitis Ct does show moderate hiatal hernia and steatosis he is taking PPI no alcohol intake EXAM: GENERAL: The patient is well developed and nontoxic. VITAL SIGNS:see workflow HEENT: Nonicteric sclerae, PERRLA, EOMI. Oropharynx clear. Moist mucous membranes. Conjunctivae appear well perfused. No thyroid mass. CHEST: Chest wall is nontender. HEART: Regular rate and rhythm without murmurs. LUNGS: Clear to auscultation bilaterally. ABDOMEN: Soft, positive bowel sounds, tender RLQ, no organomegaly.no flank tenderness SKIN: No rash, no excessive bruising, petechiae, or purpura. NEUROLOGIC: Cranial nerves II-XII intact without motor/sensory deficit. Psych: normal affect A/P: 1/ hiatal hernia, by EGD, 5 cm--saw Dr Brooke 2/ focal ileitis and RLQ pain, CTe is neg for ileitis 3/ fatty liver PLAN: 1/ f/.u Dr Brooke 2/ discussed fatty liuver, and weight loss 3/ avoid alcohol 4/ can consider capsule endo if ongoing sx [facility] Medical History BMI 32.0-32.9,adult Obesity Diaphragmatic hernia Depression GERD (gastroesophageal reflux disease) Surgical History Hx of colonoscopy History of esophagogastroduodenoscopy (EGD) Hx of knee surgery Family History Maternal Grandfather Colon cancer Maternal Uncle Colon cancer Mother No problems noted. Father No problems noted. Social History Alcohol intake: never Patient Tobacco Use Status: Never used Tobacco Physical Exam Vital Signs: Last Vital Signs Pulse 72 12/27/24 10:09 BP 130/81 12/27/24 10:09 BMI result Body Mass Index 32.9 Assessment & Plan Assessment & Plan (1) Diaphragmatic hernia: Code(s): K44.9 - Diaphragmatic hernia without obstruction or gangrene Category: Medical Qualifiers: Obstruction and gangrene presence: with obstruction but without gangrene Qualified Code(s): K44.0 - Diaphragmatic hernia with obstruction, without gangrene Plan: see above Coding Level of Care Code Est Pt Level 3 (36024) Diagnoses Diaphragmatic hernia with obstruction, without gangrene K44.0 Obstruction and gangrene presence: with obstruction but without gangrene
[2024-12-27 10:09] VITALS: BP 130/81; PULSE 72; BMI 32.9
--- OUTSIDE RECORDS SUMMARY | 2024-12-27 11:11 | XMS_ITS | Clinical Summary ---
Author Organization [employer] [facility] ity Address [address] [place] [address] Care Team Providers Care Sap Technical Developer Name Role Phone Unavailable Primary Care Provider [...] of 3 - 19+ 3-dose series) 01/29/2015 HPV Vaccines (1 - 3-dose SCD M series) 01/29/2023 HIV Screening 04/25/2023 Hepatitis C Screening 04/25/2023 Social Influencers of Health Screening 04/25/2023 Depression Screening 03/31/2024 COVID-19 Vaccine ( - 2023-2 5 season) 2024 Influenza Vaccine (#1) 2024 RSV Immunization Adult Patie nts (1 - 1-dose 75+ series) 01/29/2071 HIB Vaccines Aged Out No longer eligi [...] 5 Years) and At-Risk Patients (6 to 49 Years) Aged Out No longer eligible b ased on patient's age to complete this topic RSV Immunization Patients Un nikolay 20 months Aged Out No longer eligible b ased on patient's age to complete this topic Varicella Vaccines Aged Out No longer eligible based on patient's age to complete this topic
== END 2024-12-27 10:50 | disposition home or self-care (01) ==
LOC: HO.HGI 10:03
PROVIDERS: PCP Nurse Practitioner Gerontology; Referring Provider Internal Medicine Gastroenterology; Visit Provider Internal Medicine Gastroenterology
DX: K44.0 Diaphragmatic hernia with obstruction, without gangrene (principal)
CPT/HCPCS: 99213

== ENCOUNTER → 2024-12-27 10:03 | Outpatient (BNVA) | payer OTHER, SELFPAY | PROVIDERS: PCP Nurse Practitioner Gerontology; Visit Provider Internal Medicine Gastroenterology | DX: K44.0 Diaphragmatic hernia with obstruction, without gangrene (principal); K21.9 Gastro-esophageal reflux disease without esophagitis; R14.0 Abdominal distension (gaseous) | CPT/HCPCS: 99212 ==

== ENCOUNTER 2025-01-05 08:26 | Outpatient (AMB) | payer OTHER, SELFPAY ==
--- NOTE | 2025-01-05 12:36 | MHC.OFFVISWM ---
VS Expanded 01/05/25 12:38 Height 5 ft 10 in Weight 234 lb BMI 33.6 Intake Visit Reasons: TV Pre Op Diaphragmatic Hernia Repair 01/11/25 Allergies pollen Allergy (Unknown, Uncoded 01/05/25 12:36) Unknown Medication List - Last Reconciled 01/05/25 by Isaak Craven MD omeprazole 20 mg PO DAILY ondansetron 4 mg PO Q12H pantoprazole 40 mg PO DAILY polyethylene glycol 3350 17 grams PO DAILY sucralfate 10 mL PO BID HPI HPI TV Pre Op Diaphragmatic Hernia Repair 01/11/25: Details: Start time: 12.26pm, End time: 12.56pm ?I spent 25 minutes speaking with the patient on the phone plus an additional 5 minutes reviewing and updating records for a total of 30 minutes HPI Comments Details: Here for the preoperative appointment for diaphragmatic hernia repair COUNT INCLUDES THE [facility] Medical History BMI 32.0-32.9,adult Obesity Diaphragmatic hernia Depression GERD (gastroesophageal reflux disease) Surgical History Hx of colonoscopy History of esophagogastroduodenoscopy (EGD) Hx of knee surgery Family History Maternal Grandfather Colon cancer Maternal Uncle Colon cancer Mother No problems noted. Father No problems noted. Social History Alcohol intake: never Patient Tobacco Use Status: Never used Tobacco Telehealth Telehealth Telehealth Platform: Telephone Location of provider rendering services: practice address Location of patient: address on file Patient Identification confirmed using: Name, : Yes Telehealth method: voice only Patient verbally consented to treatment: Yes Patient verbally consented to billing insurance company: Yes Patient informed of any privacy concerns related to visit: Yes Minutes spent on Phone/Video with Pt.: 30 Assessment & Plan Assessment & Plan (1) Diaphragmatic hernia: Code(s): K44.9 - Diaphragmatic hernia without obstruction or gangrene Category: Medical Qualifiers: Obstruction and gangrene presence: with obstruction but without gangrene Qualified Code(s): K44.0 - Diaphragmatic hernia with obstruction, without gangrene Plan: 1. We discussed that her recent CT of the abdomen shows a large diaphragmatic hernia which means that about one third of your stomach lives in the chest pushing at your heart and your lungs and is causing the severe heartburn you have despite using two medications. These hernias do not go away but increase in size over time causing more symptoms and requiring a more complex operation at an older age. These hernias are also worsened by your extra weight.We discussed the potential etiology of the hernia that could be of traumatic etiology worsened by his weight. We discussed the details of the diaphragmatic hernia repair and the potential technical challenges such as being able to achieve enough mobilization of the esophagus back in the abdomen and being able to close the diaphragmatic muscle (crura) primarily with sutures. We also discussed the possibility of using a biologic mesh to close the hernia defect if the crura cannot be adequately re-approximated primarily with sutures. We also discussed the option of doing a gastropexy or a fundoplication to prevent postoperative reflux and prevent hernia recurrence. As we discussed, I favor the gastropexy as the fundoplication can cause several distrurbing symptoms such as gas-bloating, flatulence, inability to burp which can be bothersome to patients. Also we discussed the complexity of a potential hernia recurrence in association with a hernia recurrence. He was in agreement not to have a fundoplication. We also discussed that after surgery, he will need to be on a liquid diet with protein shakes the first week. The second week will add protein bars and soft foods and after the third week we will introduce small amounts of regular food. The transition to normal eating habits will take about 6 weeks which is the time required for the repair to heal completely. 2. Preop prescriptions were provided and explained the purpose of each one. Need to be purchased preop. Start Pantoprazole now as you get it from the pharmacy, 1 pill per day. Sucralfate and Zofran are for after surgery as needed. 3. Bowel prep: please do 7 packets ?of Miralax mixing each one with a an 8oz glass of water, crystal light, gatorade zero, or propel ?on 01/09/2025 and the same amount on 01/10/2025. The Miralax you begin with one packet at a time in 8oz water or crystal light, gatorade zero, or propel ?as early in the day as you can and you do them back to back until you finish them. Continue the protein shakes during ?the bowel prep. 4. Needs to purchase 1oz medicine cups . 5. Needs to purchase Children's liquid Tylenol for postop pain control. 6. He needs to stop the testosterone supplement as of tomorrow and don't restart it until one month after surgeyr. Avoid aspirin, motrin, Advil, Aleve, Meloxicam, Excedrin, Ibuprofen, Naproxyn. Tylenol is OK. 7. Will do basic preop blood work-up any day between 01/06/25 and Friday01/07/25. fasting for 12 hours and is scheduled to see the Anesthesiologist prior to the day of surgery. Please also do the EKG. No appointments are needed. 8. Importance of adherence to postop follow-up and recommendations was underscored and he understands that. 9. Stop food and bars as of tomorrow 01/06/25 and continue with 4 Premier protein shakes (8oz EACH and NOT the whole bottle) at 7am-9am, 10am-12pm, 1pm-3pm, 4pm-6pm and one more Premier protein shake (mixing 4oz Premier shake with 4oz of almond milk at 7pm-9pm 10. No soups, broths or V8 11. The patient's?medical?history has been reviewed and they are considered low risk for post op DVT and therefore DVT prophylaxis is not considered necessary. Travel after surgery was reviewed. The patient has not disclosed any travel plans during the first 30 days after surgery and they have been advised that within the first 30 days after surgery any bus, plane, train or car travel over 2 hours in duration is contraindicated due to the possibility of developing blood clots from immobility. Any travel, needs to include periods of ambulation of 10 minutes in duration every 2 hours.? Patient was instructed to discuss any plans for travel during this period with their bariatric surgeon.? 12. Use your CPAP daily and bring it to the hospital with your mask 13. Please take at the day of surgery the following medications: None 14. Absolutely no smoking or vaping, or marijuana until the surgery and for at least the first 4 weeks. Only nicotine patches are allowed. 15. Send me weight measurements on Friday01/11/25, the day of surgery before you go to the hospital. 16. Avoid any steroids by mouth for any reason. Let me know if someone prescribes them to you Orders: Orders Insulin Today K44.0 - Diaphragmatic hernia with obstruction, without gangrene C Reactive Protein Today K44.0 - Diaphragmatic hernia with obstruction, without gangrene Ferritin Today K44.0 - Diaphragmatic hernia with obstruction, without gangrene Partial Thromboplastin Time Today K44.0 - Diaphragmatic hernia with obstruction, without gangrene Type and Screen Today K44.0 - Diaphragmatic hernia with obstruction, without gangrene Prothrombin Time INR Today K44.0 - Diaphragmatic hernia with obstruction, without gangrene Zinc Today K44.0 - Diaphragmatic hernia with obstruction, without gangrene Vitamin B1 Today K44.0 - Diaphragmatic hernia with obstruction, without gangrene Vitamin A Today K44.0 - Diaphragmatic hernia with obstruction, without gangrene Complete Blood Count Auto Diff Today K44.0 - Diaphragmatic hernia with obstruction, without gangrene Lipid Panel Today K44.0 - Diaphragmatic hernia with obstruction, without gangrene Hemoglobin A1c Today K44.0 - Diaphragmatic hernia with obstruction, without gangrene Comprehensive Met. Panel Today K44.0 - Diaphragmatic hernia with obstruction, without gangrene IRON PROFILE Today K44.0 - Diaphragmatic hernia with obstruction, without gangrene TSH reflex Free T4 Today K44.0 - Diaphragmatic hernia with obstruction, without gangrene Vitamin D 25-OH Total Today K44.0 - Diaphragmatic hernia with obstruction, without gangrene Vitamin B12 Today K44.0 - Diaphragmatic hernia with obstruction, without gangrene Medications: New pantoprazole 40 mg PO DAILY 90 tabs 0RF K21.9 - Gastro-esophageal reflux disease without esophagitis sucralfate 10 mL PO BID 600 mL 2RF K21.9 - Gastro-esophageal reflux disease without esophagitis ondansetron Only take one every 12 hours as needed if you have nausea 4 mg PO Q12H 20 tabs 0RF nausea and vomiting R11.0 - Nausea polyethylene glycol 3350 Mix each measuring cup with 8oz of water, Crystal light, or Gatorade zero, or Propel and do 7 measuring cups on 01/09/25 and another 7 measuring cups on 01/10/25 17 grams PO DAILY 238 grams 0RF Z01.818 - Encounter for other preprocedural examination
[2025-01-05 12:38] VITALS: BMI 33.6
== END 2025-01-05 12:57 | disposition home or self-care (01) ==
LOC: HO.HBS 08:26
PROVIDERS: Referring Provider Surgery; Visit Provider Surgery
DX: K44.0 Diaphragmatic hernia with obstruction, without gangrene (principal)
CPT/HCPCS: 98014

== ENCOUNTER → 2025-01-06 09:12 | Outpatient (BNV) | payer OTHER, SELFPAY | PROVIDERS: Admitting Provider Surgery; PCP Nurse Practitioner Gerontology; Visit Provider Internal Medicine Cardiovascular Disease | DX: Z01.818 Encounter for other preprocedural examination (principal) | CPT/HCPCS: 93010 ==

== ENCOUNTER 2025-01-11 11:49 | Inpatient (IN) | payer OTHER, SELFPAY ==
[2025-01-05 11:28] VITALS: BMI 32.7
--- NOTE | 2025-01-06 09:12 | ECG_ITS ---
Test Reason : preop Blood Pressure : */* mmHG Vent. Rate : 61 BPM Atrial Rate : 61 BPM P-R Int : 150 ms QRS Dur : 84 ms QT Int : 362 ms P-R-T Axes : 51 28 -2 degrees QTcB Int : 364 ms Normal sinus rhythm Normal ECG No previous ECGs available Referred By: Isaak Craven Electronically Signed By: NICK JERONIMO MD
[2025-01-06 09:29] LABS: MANUAL DIFF FLAG NO
[2025-01-06 09:41] LABS: Hematocrit 45.2 % (42.0-52.0); Hemoglobin 16.0 g/dl (14.0-18.0); Imm Gran Abs Auto 0.02 X10*3/uL (0.00-0.03); Imm Gran Pct Auto 0.3 % (0.0-0.4); Lymphocytes Absolute Auto 2.8 X10*3/uL (1.2-4.9); Mean Corpuscular HGB Conc 35.4 g/dl (31.0-36.0); Mean Corpuscular Hemoglobin 30.5 pg (27.0-33.0); Mean Corpuscular Volume 86.1 fL (80.0-98.0); NRBC Abs Auto 0.000 X10*3/uL (0.0-0.012); NRBC Pct Auto 0.0 /100WBC (0.0-0.2); Platelet Count 235 X10*3/uL (160-400); Red Blood Count 5.25 X10*6/uL (4.60-5.80); White Blood Count 7.7 X10*3/uL (4.8-10.8)
[2025-01-06 09:48] LABS: Hemoglobin A1C 130.5558 umol/L; Total Hemoglobin (HGBA1C) 3998.9368 umol/L
[2025-01-06 10:05] LABS: INTERNATIONAL NORM RATIO 1.0 (0.9-1.1); Partial Thromboplastin Time 30.7 SEC (26.7-34.1); Prothrombin Time 11.4 SEC (10.9-12.4)
[2025-01-06 10:16] LABS: Anion Gap 9 (12-20)
[2025-01-06 10:19] LABS: Alanine Aminotransferase 30 U/L (0-40); Albumin Level 4.4 g/dL (3.5-5.0); Alkaline Phosphatase 71 U/L (39-117); Aspartate Amino Transferase 26 U/L (5-37); Blood Urea Nitrogen 17 mg/dL (9-16); Calcium 9.2 mg/dL (8.4-10.2); Carbon Dioxide 24 mmol/L (22-29); Chloride 113 mmol/L (96-108); Cholesterol 134 mg/dL (<200); Creatinine Clr Calc Pharmacy 123.8; Estimated Glomerular Filt Rate > 60; HDL Cholesterol 30 mg/dL (>40); Iron 78 mcg/dL (45-160); Percent Iron Saturation 32 % (15-50); Potassium 4.0 mmol/L (3.3-5.1); Sodium 142 mmol/L (135-145); Total Iron Binding Capacity 245 mcg/dL (228-428); Total Protein 6.6 g/dL (6.5-8.0); Triglycerides 71 mg/dL (<150); Unsaturated Iron Binding 167 ug/dL
[2025-01-06 10:39] LABS: Vitamin B12 573 pg/mL (200-900)
[2025-01-06 10:44] LABS: Ferritin 162 ng/mL (20-250)
[2025-01-06 12:18] VITALS: BMI 33.9
[2025-01-11] VITALS (13 sets, daily range): BP systolic 95–122; BP diastolic 53–78; PULSE 64–78; RESP 12–18; TEMP 35.9–36.4; O2SAT 95–99; BMI 33.8; BMI 34.5
[2025-01-11] MEDS: Lactated Ringers 1,000 ML 999 ML IV (12:15)
[2025-01-11] MEDS: Aprepitant 32 MG/4.4 ML VIAL IVPUSH (12:24)
--- NOTE | 2025-01-11 12:24 | HO.ANESPROP2 ---
Documented by User: Larisa Poon NP 01/06/25 13:07 HPI - Anesthesia Eval Consult details Narrative: 29yo M for Repair Hernia Diaphragmatic Lap Reducible PMFSH Active Problems Active Problems: All Active Problems Preprocedural examination (Acute) Abnormal bowel habits (Acute) BMI 32.0-32.9,adult (Acute) Obesity (Acute) GERD (gastroesophageal reflux disease) (Acute) Diaphragmatic hernia (Acute) Past Medical History Medical History (Updated 01/06/25 @ 12:06 by Yeni Mcdonough RN) Arthritis Back pain Fatty liver Anxiety Sleep apnea BMI 32.0-32.9,adult Obesity Diaphragmatic hernia Depression GERD (gastroesophageal reflux disease) Family History Family History Maternal Grandfather Colon cancer Maternal Uncle Colon cancer Mother No problems noted. Father No problems noted. Family history of problems with anesthesia: No Surgical History Surgical History Hx of colonoscopy History of esophagogastroduodenoscopy (EGD) Hx of knee surgery History of Problems with Anesthesia: No Social History Social History Alcohol intake: never Patient Tobacco Use Status: Never used Tobacco Use of substances other than those prescribed or required for medical reasons: Yes Substance Use Frequency: Daily Are you DNR?: No Advance Directives: No Advance Directives Information Provided: No Advance Directives on File: No Poor oral hygiene: No Meds Allergies Allergy/AdvReac Type Severity Reaction Status Date / Time pollen Allergy Unknown Unknown Uncoded 01/05/25 12:36 Home Medications ?Medication ?Instructions ?Recorded ?Confirmed ?Last Taken ?Type omeprazole 20 mg capsule,delayed 20 mg PO DAILY 05/14/24 01/06/25 Unknown History release clomiphene citrate 50 mg tablet 50 mg PO Q OTHER DAY 01/06/25 01/06/25 01/07/25 History (Clomid) Exam Height,Weight and Vital Signs: Height 5 ft 10 in Weight 107.048 kg Pertinent Lab Results Pertinent Lab Results: Laboratory Tests 01/06/25 09:20 WBC 7.7 RBC 5.25 Hgb 16.0 Hct 45.2 MCV 86.1 MCH 30.5 MCHC 35.4 RDW 11.8 Plt Count 235 MPV 9.6 Immature Gran % (Auto) 0.3 Neut % (Auto) 56.9 Lymph % (Auto) 36.3 [place] % (Auto) 5.3 Eos % (Auto) 0.8 Baso % (Auto) 0.4 Lymph # (Auto) 2.8 [place] # (Auto) 0.4 Eos # (Auto) 0.1 Baso # (Auto) 0.0 Abs Immat Gran (auto) 0.02 Absolute Neuts (auto) 4.4 Absolute Nucleated RBC 0.000 Nucleated RBC % (auto) 0.0 PT 11.4 INR 1.0 APTT 30.7 Sodium 142 Potassium 4.0 Chloride 113 H Carbon Dioxide 24 Anion Gap 9 L BUN 17 H Creatinine 1.07 Estim Creat Clear Calc 123.8 Estimated GFR > 60 Random Glucose 89 Estimat Average Glucose 100 Hemoglobin A1c % 5.1 Insulin Level 15 Calcium 9.2 Iron 78 TIBC 245 % Saturation 32 Unsat Iron Binding 167 Ferritin 162 Total Bilirubin 0.4 AST 26 ALT 30 Alkaline Phosphatase 71 C-Reactive Protein 0.21 Total Protein 6.6 Albumin 4.4 Triglycerides 71 Cholesterol 134 LDL Cholesterol, Calc 90 HDL Cholesterol 30 L Vitamin B12 573 25-OH Vitamin D Total 24.2 L TSH 1.05 Blood Type O Positive Antibody Screen NEGATIVE Narrative Narrative: EKG 12/2024 Vent. Rate : 61 BPM Atrial Rate : 61 BPM P-R Int : 150 ms QRS Dur : 84 ms QT Int : 362 ms P-R-T Axes : 51 28 -2 degrees QTcB Int : 364 ms Normal sinus rhythm Normal ECG No previous ECGs available Assessment and Plan Assessment Anesthesia Assessment: Chart Reviewed Final Anesthetic Review Family History of Problems with Anesthesia: No History of Problems with Anesthesia: No Documented by User: Catherine Dotson DO 01/11/25 12:33 HPI - Anesthesia Eval Consult details Narrative: 29yo M for Repair Hernia Diaphragmatic Lap Reducible Marijuana use [facility] Past Medical History Medical History (Updated 01/06/25 @ 12:06 by Yeni Mcdonough RN) Arthritis Back pain Fatty liver Anxiety Sleep apnea BMI 32.0-32.9,adult Obesity Diaphragmatic hernia Depression GERD (gastroesophageal reflux disease) Family History Family History Maternal Grandfather Colon cancer Maternal Uncle Colon cancer Mother No problems noted. Father No problems noted. Family history of problems with anesthesia: No Surgical History Surgical History Hx of colonoscopy History of esophagogastroduodenoscopy (EGD) Hx of knee surgery History of Problems with Anesthesia: No Social History Social History Alcohol intake: never Patient Tobacco Use Status: Never used Tobacco Use of substances other than those prescribed or required for medical reasons: Yes Substance Use Frequency: Daily Are you DNR?: No Advance Directives: No Advance Directives Information Provided: No Advance Directives on File: No Poor oral hygiene: No Meds Allergies Allergy/AdvReac Type Severity Reaction Status Date / Time pollen Allergy Unknown Unknown Uncoded 01/05/25 12:36 Home Medications ?Medication ?Instructions ?Recorded ?Confirmed ?Last Taken ?Type omeprazole 20 mg capsule,delayed 20 mg PO DAILY 05/14/24 01/06/25 Unknown History release clomiphene citrate 50 mg tablet 50 mg PO Q OTHER DAY 01/06/25 01/06/25 01/07/25 History (Clomid) Exam Exam Date and Time: 01/11/25 1230 Height,Weight and Vital Signs: Height 5 ft 10 in Weight 107.048 kg Vital Signs Temperature 97.5 F 01/11/25 11:58 Pulse Rate 64 01/11/25 11:58 Respiratory Rate 16 01/11/25 11:58 Blood Pressure 122/78 01/11/25 11:58 Pulse Oximetry 96 01/11/25 11:58 Oxygen Delivery Method Room Air 01/11/25 11:58 Temperature 97.5 F 01/11/25 11:58 Pulse Rate 64 01/11/25 11:58 Respiratory Rate 16 01/11/25 11:58 Blood Pressure 122/78 01/11/25 11:58 Pulse Oximetry 96 01/11/25 11:58 Oxygen Delivery Method Room Air 01/11/25 11:58 Airway Mallampati Class: II TM Dist: >3cm Neck ROM: Full Loose/Missing/Broken Teeth: Yes (cracked right molar bottom jaw) Heart: S1S2 Lungs: CTAB Assessment and Plan Assessment Anesthesia Assessment: Anesthesia Plan Discussed and Chart Reviewed Final Anesthetic Review Family History of Problems with Anesthesia: No History of Problems with Anesthesia: No NPO: Yes ASA Class: II Final Preanesthetic Review: No Changes in Pt Med Stat, Meds/Allgs Chart Reviewed, Consent Obtained/Reviewed and Anes Risks/Benef Reviewed Patient Risk: Low Procedure Risk: Intermediate Anesthetic Plan Anesthetic Plan: GA and Agree w/ Assess. and Plan Disposition: Standard PACU
--- NOTE | 2025-01-11 12:28 | MHC.SHP ---
Pre-Procedural Eval Section A - 24 Hr Update-Section A only Date of Service: 01/11/25 The patient is an INPATIENT: Yes The patient has been examined within 24 hours of the surgical procedure. The History & Physical has been completed within 30 days and I have reviewed it.: Yes Section B - Complete if H&P > 30 days Chief Complaint: diaphramatic hernia repair Relevant Family History (Specify if Yes): No Relevant Social History: None Present Medications: None Medical History: No relevant PMH History of Previous Operations: No relevant previous surgery Allergies: Allergies Allergy/AdvReac Type Severity Reaction Status Date / Time pollen Allergy Unknown Unknown Uncoded 01/05/25 12:36 Review of Systems Sugical H&P ROS: Negative: Constitution, Cardiovascular, Respiratory, Neurological, Psychiatric, Hem-Onc, Allergic/Immunologic, Gastrointestinal, Genitourinary, Musculoskeletal, Integumentary, Endocrine and Eyes/Ears/Nose/Throat Exam Surgical H&P Exam: Normal: HEENT, Normal: Heart, Normal: Lungs, Normal: Extremities, Normal: Abdomen, Normal: Skin and Normal: Neurological Plan Diagnosis/Plan: Unchanged I have reviewed the history and physical and performed a pertinent physical examination on my patient. No changes have occurred unless specified. Time Spent With Patient Time: Total time managing care of this patient today ____ minutes.
--- NOTE | 2025-01-11 12:29 | P.BOP_ITS ---
Brief Operative Note Date of Service: 01/11/25 Pre-op diagnosis: Incarcerated paraesophageal hernia type III Post-op diagnosis: same Procedure: Date of Service: 01/11/2025 Pre-op diagnosis: Diaphragmatic hernia Post-op diagnosis: same (Incarcerated Giant paraesophageal hernia & abdominal adhesions) Procedure: Procedure: COMORBIDITIES: GERD, diaphragmatic hernia, sleep apnea on CPAP, depression, anxiety, insomnia ?INDICATIONS: The patient is a 29 year old male who was referred to me from Dr. Lind for a diaphragmatic hernia and GERD confirmed by EGD and CT. The patient is scheduled today for diaphragmatic hernia repair. Risks of recurrent hernia, dysphagia, persistent GERD, VTE, leak, infection and bleeding were discussed with the patient and he is in agreement with the plan. PROCEDURE: Esophago-gastroscopy, laparoscopic lysis of adhesions, laparoscopic repair of incarcerated diaphragmatic hernia and laparoscopic gastropexy. DESCRIPTION OF PROCEDURE: After informed consent was obtained from the patient, the patient was given preoperative antibiotics, and was transferred to the operating room. After successful induction of general anesthesia, pneumatic compression devices were placed on both lower extremities. An upper endoscopy was performed next. The oropharynx and upper esophagus appeared to be within normal limits. The stomach was entered and the scope was advanced all the way to the pylorus.? After all fluid and air were suctioned and the stomach was fully decompressed, the scope was withdrawn and secured in the mid esophagus. The patient was then prepped and draped in the usual sterile manner. Abdominal access was established at the right upper quadrant with the Jessie technique. A 12 mm blunt trocar was inserted and the abdomen was insufflated with CO2 to a pressure of 15 mmHg. Following that additional ports were placed, specifically two 5 mm Versi-step ports to the left upper and one 5 mm Versi-step to the right upper quadrant. 1% lidocaine plain was used to infiltrate all port sites as well as all fascia defects. Following that, the patient was placed in a steep reverse Trendelenburg position. An additional 5 mm port was placed to the right flank for the Mediflex retractor that was used to retract the left lobe of the liver. There was a giant paraesophageal hernia with about one third of the stomach herniated into the chest next to the esophagus. I then opened the gastrocolic ligament between the transverse colon and the greater curvature of the stomach with the ultrasonic device to enter the lesser sac and facilitate the ligation of the short gastric vessels. I started at at the upper third along the greater curvature and using the Thunderbeat, all attachments were divided. There was an obvious significant-sized paraesophageal hiatal hernia. The stomach was incarcerated into the mediastinum with multiple thick adhesions. Mobilization of the stomach was very difficult and required tedious and careful dissection of the proximal short gastric vessels. I continued dissecting along the hiatus toward the left justin into the mediastinum mobilizing the hernia sac from the mediastinum. The esophagus was carefully dissected off the aorta. The pleura spaces were not violated in either side. The pars flaccida was opened. It was actually herniated into the hernia defect. The vena cava was not dilated and it was carefully protected. I then continued by dissecting even further into the posterior retro-esophageal space all the way to the angle of His. I continued to mobilize the esophagus into the mediastinum circumferentially. The esophagus was densely adherent to the aorta and the majority of these adhesions were mobilized. Both vagal nerves were seen and preserved. With extensive circumferential dissection into the mediastinum, I was able to bring the GE junction at least 3cm below the crura. The gastro-espohageal fat pad was large and was originally incarcerated into the hernia. It was dissected and was removed in two separate pieces. I closed the hernia defect with four interrupted #0 Surgidac sutures using the Endo Stitch device, three of which were placed posterior and one of which anterior to the esophagus. The bites were carefully placed to include both the ventral and dorsal aspect of the two crura, advancing slightly more at the left justin as it was located more diagonally than the right. ? A gastropexy was then performed in order to prevent postoperative GERD and partial gastric volvulus. Three interrupted 3.0 Polysorb sutures were placed between the greater curvature of the dissected stomach and the previously divided greater omentum and gastro-colic ligament using the Endo-Stitch device. ?An upper endoscopy was performed. There was no narrowing at the GE junction or any esophageal injury. The scope was easily advanced all the way to the pylorus which was clearly visualized. There was no narrowing anywhere. I confirmed that the GE junction was 3cm intra-abdominally. At that point the gastroscope was withdrawn from the patient?s mouth while we were decompressing the bowel and the stomach from any remaining air. I looked into the lesser sac to see how the stomach was situating and it was situating well. There was no bleeding from the, spleen, or short gastric vessels. The Mediflex retractor was removed, and the undersurface of the liver was inspected and there was no bleeding. The patient was placed in supine position. Then 30cc of Ropivacaine plain with 10 mg of Dexamethasone were used to infiltrate the fascial closure as well as all skin incisions. At this point, the abdomen was deflated, all ports were removed under direct vision, and no bleeding was noted from any of the port sites. The skin incisions were irrigated with saline and were closed with 4-0 absorbable monofilament sutures. Steri- Strips and OpSites were used to cover all incisions. The patient was extubated and was transferred in stable condition to the recovery room for further care. I was present and performed all gomez parts of the procedure. Ms. Combs was the medical office receptionist assistant. There were no residents to assist with this case. Henrry Craven MD, PhD, FACS Surgeon: Isaak Craven MD Anesthesia: GETA, local and other (TAP block) Was an Ep Tech used for this Procedure?: No Ep Tech: Lexus Combs Estimated blood loss (mL): 10 IV fluids (mL): 2,300 Urine output (mL): 0 (No Blanco to record output) Pathology: other (Gastro-esophageal fat pad x2) Condition: stable Disposition: PACU
--- NOTE | 2025-01-11 12:32 | PM.PNGS ---
Subjective Subjective Date of Service: 01/13/25 Interval history: Feels well. Mild incisional pain. He is tolerating phase 1 bariatric diet Physical Exam Vital Signs: Vital Signs: Last Vital Signs Temp 97.5 F 01/11/25 11:58 Pulse 64 01/11/25 11:58 Resp 16 01/11/25 11:58 BP 122/78 01/11/25 11:58 Pulse Ox 96 01/11/25 11:58 O2 Del Method Room Air 01/11/25 11:58 BMI result Body Mass Index 33.8 GI: Inspection: Yes normal to inspection, Yes incision (clean, dry and intact) and Yes obesity Palpation (GI): Soft to palpation Extrem: Right lower extremity: normal to inspection (no calf tenderness) Left lower extremity: normal to inspection (no calf tenderness) Objective Data Active Medications Lactated Ringer's (Lr) 1,000 mls @ 100 mls/hr IVCONT .Q10H [facility] Stop: 01/11/25 15:44 Lactated Ringer's (Lr) 1,000 mls @ 999 mls/hr IV .Q1H1M OPAL Stop: 01/11/25 13:45 Last Admin: 01/11/25 12:15 Dose: 999 mls/hr Documented By: LINUS Labs 01/13/25 05:13 01/12/25 06:01 Labs: Laboratory Results - last 24 hr 01/06/25 09:20 Vitamin A 67 Procedures Date of Service Date of Service: 01/13/25 Progress Note: A&P Assessment and plan (1) Paraesophageal hernia with gastroesophageal reflux: Status: Acute Assessment and Plan: s/p laparoscopic lysis of adhesions, diaphragmatic hernia repair and gastropexy Doing well Will check am labs and if OK the patient will be discharged home (2) Obesity: Status: Acute (3) BMI 32.0-32.9,adult: Status: Acute (4) GERD (gastroesophageal reflux disease): Status: Acute (5) Depression: Status: Acute (6) Anxiety: Status: Acute (7) Sleep apnea with use of continuous positive airway pressure (CPAP): Status: Acute (8) Insomnia: Status: Acute (9) S/P repair of paraesophageal hernia: Status: Acute Time Spent With Patient Time: Total time managing care of this patient today ____ minutes. Quality Stroke Does the patient have a stroke diagnosis?: No VTE Prior VTE?: No VTE Risk Level:: Surgical - moderate VTE Device Contraindication: N/A - Device Ordered VTE Drug Contraindication: Treatment Not Indicated
--- NOTE | 2025-01-11 12:56 | PHA.MEDREC ---
Pharmacy Consult ? Medication Reconciliation Pharmacy has reviewed the medication reconciliation completed by nursing.
--- NOTE | 2025-01-11 15:16 | P.DS_ITS ---
DS: Providers Provider Date of Service: 01/13/25 Date of admission: 01/11/25 11:49 Date of discharge: 01/13/25 Primary care physician: Gertrude Ramos NP DS: Diagnosis Discharge Diagnosis (1) Paraesophageal hernia with gastroesophageal reflux: Status: Acute (2) Obesity: Status: Acute (3) BMI 32.0-32.9,adult: Status: Acute (4) GERD (gastroesophageal reflux disease): Status: Acute (5) Depression: Status: Acute (6) Anxiety: Status: Acute (7) Sleep apnea with use of continuous positive airway pressure (CPAP): Status: Acute (8) Insomnia: Status: Acute DS: Summary Hospital Course Hospital Course: ADMITTING DIAGNOSIS: diaphragmatic hernia, obesity, insomnia, DAVIN on CPAP, anxiety, depression, GERD DISCHARGE DIAGNOSIS: same, s/p gastropexy with diaphragmatic hernia repair PAST SURGICAL HISTORY:? Hx of colonoscopy History of esophagogastroduodenoscopy (EGD) Hx of knee surgery PROCEDURE: upper endoscopy, laparoscopic diaphragmatic hernia repair and gastropexy DISCHARGE SUMMARY: History of Present Illness: The patient is a?29 year-old man with a BMI of 33.8 kg/m2 and associated co- morbidities as described above. The patient had extensive work-up for GERD and was found to have a diaphragmatic hernia. He was electively scheduled for laparoscopic, possible open diaphragmatic hernia repair and gastropexy. Risks and complications of the surgery were discussed with the patient in advance, particularly the possibility of , pulmonary embolism, anastomotic leak, bleeding, bowel injury, GERD, cardiac, renal or pulmonary complications. The patient understood all the risks and was in agreement with the surgical plan. Hospital Course: The patient underwent an uneventful laparoscopic gastropexy and repair of diaphragmatic hernia on the day of admission. Postoperatively, the patient was transferred to the surgical floor. The patient received IV acetaminophen and IV Dilaudid for pain control. Patient was started on bariatric phase 1 diet POD #0. On postoperative day one, the patient was feeling well without nausea, vomiting, fevers, or tachycardia. The patient had some mild incisional pain and the abdomen was soft.? ? On the morning of postoperative day one, the patient was continued on 1 ounce of water or ice every half hour. During POD1, pt reported having some pain that was not well controlled with medication regimen. PO oxycodone was added. By POD2, pt's pain controlled had improved and he was doing well tolerating liquids without nausea. Since the patient is doing well on POD2, we decided that the patient was ready to be discharged. The patient was given instructions to follow-up in office next week and to call the office for any fever over 101, persistent abdominal pain, nausea, vomiting, GERD, symptoms of DVT such as calf tenderness, or leg swelling, or pulmonary embolism such as chest pain or shortness of breath.? The patient was also instructed to drink 40-60 ounces of liquids per day using the 1-ounce cups. The patient had been given prescriptions for Tylenol for pain, Zofran prn for nausea, and pantoprazole and carafate previously. The patient was encouraged to ambulate and use the incentive spirometer. The patient was allowed to shower, but no baths, and encouraged to stay active at home. All of these instructions were given to the patient personally. All questions were answered and the patient understood all instructions, the instructions were also given to the patient in print. Time Attestation Discharge Coordination Time (in mins): 30 Quality: Safe Use of Opioids Does Pt have an Active Cancer Diagnosis on the Problem List?: No Quality: Stroke Does the patient have a stroke diagnosis?: No Physical Exam Vital Signs: Vital Signs: Last Vital Signs Temp 97.4 F 01/11/25 15:06 Pulse 78 01/11/25 15:06 Resp 16 01/11/25 15:06 BP 107/63 01/11/25 15:06 Pulse Ox 99 01/11/25 15:06 O2 Del Method Simple Mask 01/11/25 15:06 O2 Flow Rate 6 01/11/25 15:06 BMI result Body Mass Index 33.8 DS: Data Data Completed and Pending Pending studies at discharge: Pending at discharge 01/11/25 14:17 Surgical [PTH] Routine Labs on day of discharge: Laboratory Results - last 24 hr 01/06/25 09:20 Vitamin A 67 Discharge Plan Discharge Anticipated Discharge Date/Time: 01/12/25 10:00 Patient Disposition: Home, Self-Care Discharge Diagnosis: s/p laparoscopic diaphragmatic hernia repair with gastropex y Referrals: Gertrude Ramos NP [Primary Care Provider, Medical] - 1 Week Discharge Medications: Continued sucralfate 100 mg/mL suspension 10 ml PO BID Qty: 600 2RF pantoprazole 40 mg tablet,delayed release (DR/EC) 40 mg PO DAILY Qty: 90 0RF ondansetron 4 mg tablet,disintegrating 4 mg PO Q12H Qty: 20 0RF Rx Instructions: Only take one every 12 hours as needed if you have nausea Held clomiphene citrate [Clomid] 50 mg tablet 50 mg PO Q OTHER DAY Hold Instructions: Resume on 02/11/25. Discontinued omeprazole 20 mg capsule,delayed release(DR/EC) 20 mg PO DAILY Discharge Orders: Discharge Order (Routine); Ordered 01/13/25 Ordered By: Isaak Craven Activity on Discharge: No heavy lifting Stand Alone Forms: Patient Portal Discharge page, Work/School Release Print Language: Cambodian Care Plan Goals: resolution of diaphragmatic hernia/GERD Health Concerns: diaphragmatic hernia Plan of Treatment: INSTRUCTIONS: Drink today at a pace of 2ml per minute using the syringe only Update Dr. Craven tonight with how many ounces of fluids you had and your pain score 0-10 Drink only water, Gatorade zero, or Crystal light or Propel Use the incentive spirometer hourly to 1500ml or above Walk often May shower Review the instructions that Dr. Craven sent you No tub baths, sex or returning to work until discussed at first post op appointment. No alcohol, tobacco or illegal drug use. Continue to use incentive spirometer hourly while awake. Walk in home for 5- 10 minutes every 2 hours during the first week. Wear abdominal binder with activity. Follow all meal plan instructions from your bariatric surgeon. Review bariatric handbook and call with any questions. Discharge Instructions 1. Please call your doctor or come back to the emergency room should any new symptoms arise. 2. Activity: abstain from alcohol,? limited stair climbing, no bending, no driving, no exercise, no illicit substances, no lifting, no sex, no tub bath, no work. 4. Diet: follow your bariatric surgeon's recommendations for advancing diet. 5. Dressing Change/Wound Care: Your incisions are covered with waterproof dressings. You can shower with these and pat dry. Do not rub over dressings or incisions. If the area is tender, you may apply an ice pack for short intervals (no more than 20 minutes on, followed by at least 20 minutes off). Do not apply heat. Do not use creams, lotions, or topical antibiotics unless instructed to do so by your surgeon. 6. Call your doctor if: - Your temperature exceeds 101.5 F - You experience excessive pain or swelling - You have an unexpected reaction to medication - You have excessive bleeding - You experience continued vomiting/nausea - Your incision begins to separate - Your incision shows signs of infection such as increased redness, swelling, excessive pain, heat, or drainage (light blood or clear fluid is normal) General instructions: No lifting greater than 10 lbs for the next 6 weeks. [address] driving within 24 hours of taking narcotic pain medications. If you do not move your bowels in the next 2 days, please take milk of magnesia over the counter. Please follow the post op diet and do not advance your diet until instructed by your surgeon or until you are seen in the office in about 1 week. Please walk around your home every hour or two to prevent blood clots from forming in your legs. You do not need to wake from sleeping to walk. Please sleep in a bed or couch to prevent kinking at the hips and knees. Please take your incentive spirometer (your lung senior asic engineer) home with you and use it for the next few days to prevent pneumonias. You may shower; no hot tubs, baths or swimming pools. Please make sure you are consuming 40-60 ounces of total fluids per day. Avoid all carbonation. Please call the office with any questions or concerns such as increasing abdominal pain, fever, chills, shortness of breath, chest pain, leg pain or swelling, or redness or drainage from your incisions. Do not hesitate to contact the office with any questions at . The patient's medical history has been reviewed and they are considered low risk for post op DVT and therefore DVT prophylaxis is not considered necessary. Travel after surgery was reviewed. The patient has not disclosed any travel plans during the first 30 days after surgery and they have been advised that within the first 30 days after surgery any bus, plane, train or car travel over 2 hours in duration is contraindicated due to the possibility of developing blood clots from immobility. Any travel, needs to include periods of ambulation of 10 minutes in duration every 2 hours.? The patient was instructed to discuss any plans for travel during this period with their bariatric surgeon. Assessment: s/p laparoscopic diaphragmatic hernia repair with gastropexy Discharge Date/Time: 01/13/25 12:13
[2025-01-11] MEDS: Lactated Ringers 1,000 ML 100 ML IVCONT ×2 (16:11→16:19)
[2025-01-11] MEDS: 0.9 % Sodium Chloride Flush 3 ML SYRINGE IVFLUSH (16:17)
--- NOTE | 2025-01-11 17:00 | PC.NURSE ---
Phlebotomy at bedside before pt arrived on unit from PACU, Phlebotomy made aware pt is not on the floor yet. Phlebotomy called at 16:50 to collect ordered labs, MITA Combs made aware.
[2025-01-11 17:12] LABS: Hematocrit 44.0 % (42.0-52.0); Hemoglobin 15.1 g/dl (14.0-18.0)
[2025-01-11 17:21] LABS: Anion Gap 10 (12-20); Blood Urea Nitrogen 22 mg/dL (9-16); Calcium 8.9 mg/dL (8.4-10.2); Carbon Dioxide 24 mmol/L (22-29); Chloride 109 mmol/L (96-108); Creatinine Clr Calc Pharmacy 126.0; Estimated Glomerular Filt Rate > 60; Potassium 4.2 mmol/L (3.3-5.1); Sodium 139 mmol/L (135-145)
[2025-01-12] MEDS: Lactated Ringers 1,000 ML 100 ML IVCONT ×3 (02:02→21:27)
[2025-01-12 02:03] VITALS: RESP 16
[2025-01-12 02:33] VITALS: RESP 12
[2025-01-12 03:36] VITALS: BP 110/66; PULSE 73; RESP 16; TEMP 35.6; O2SAT 96
[2025-01-12 06:08] LABS: MANUAL DIFF FLAG NO
[2025-01-12 06:19] LABS: Hematocrit 42.8 % (42.0-52.0); Hemoglobin 15.1 g/dl (14.0-18.0); Imm Gran Abs Auto 0.05 X10*3/uL (0.00-0.03); Imm Gran Pct Auto 0.4 % (0.0-0.4); Lymphocytes Absolute Auto 1.1 X10*3/uL (1.2-4.9); Mean Corpuscular HGB Conc 35.3 g/dl (31.0-36.0); Mean Corpuscular Hemoglobin 30.3 pg (27.0-33.0); Mean Corpuscular Volume 85.9 fL (80.0-98.0); NRBC Abs Auto 0.000 X10*3/uL (0.0-0.012); NRBC Pct Auto 0.0 /100WBC (0.0-0.2); Platelet Count 263 X10*3/uL (160-400); Red Blood Count 4.98 X10*6/uL (4.60-5.80); White Blood Count 12.8 X10*3/uL (4.8-10.8)
[2025-01-12 06:23] LABS: Anion Gap 14 (12-20); Blood Urea Nitrogen 18 mg/dL (9-16); Calcium 8.7 mg/dL (8.4-10.2); Carbon Dioxide 21 mmol/L (22-29); Chloride 109 mmol/L (96-108); Creatinine Clr Calc Pharmacy 160.0; Estimated Glomerular Filt Rate > 60; Potassium 4.2 mmol/L (3.3-5.1); Sodium 140 mmol/L (135-145)
[2025-01-12 07:33] VITALS: BP 117/67; PULSE 63; RESP 14; TEMP 36.5; O2SAT 98
--- NOTE | 2025-01-12 09:17 | HO.POSTANES ---
Post Anesthesia Evaluation Post Anesthesia Evaluation Date of Service: 01/12/25 Vital Signs: Vital Signs Temp Pulse Resp BP Pulse Ox O2 Del Method O2 Flow Rate 01/12/25 07:33 97.7 F 63 14 117/67 98 Room Air 01/12/25 03:36 96.1 F L 73 16 110/66 96 Nasal Cannula 1 01/12/25 02:33 12 01/12/25 02:03 16 Anesthesia: General Mental Status: Awake Pain Control: Satisfactory Nausea/Vomiting: None Hydration: Adequate Anesthesia-Related Issues: No Anes. Related Issues
--- NOTE | 2025-01-12 10:46 | MHC.CM.PN ---
S/P Diaphramatic Hernia repair He lives with his S.O. + son He is independent with all functional mobility No DME A new HCP has been documented DP home self care. Patient will arrange for transportation home.
--- NOTE | 2025-01-12 12:49 | PC.NURSE ---
Addendum entered by Diana Lauren RN 01/12/25 18:30: Lexus FAN at bedside to assess pt. Per PA, Dr. Craven will order oxycodone as adjunct to attempt to manage pts pain. Pt given at 17:44, after 30 mins ambulated in hallway with walker. After ambulation pt states he does not feel like he can manage his pain adequately at this time at home. PA updated. Tentative DC tomorrow contingent upon pain control. Original Note: Dr. Craven made aware via [employer] text [id number] pt received PRN IV dilaudid, 30 minutes after administration pt ambulated in hallway. Pt ambulated about 15 to 20 feet before feeling dizzy. At this time pt sat down in chair and wheeled back to room. Pt was able to sit up in chair for about 30 mins before requesting to get back to bed. Per attempt to ambulate again. At approximately 12:00 pt was able to ambulate a second time, OOB up in hallway, pt reporting moderate pain, less dizzy compared to earlier in shift. Pt requesting medication for moderate pain and that Dilaudid makes him feel dizzy, MD Craven made aware via [employer] text at 12:08 of pts request. Per Dr. Craven via [employer] text He is getting the IV Tylenol no other option . Pt made aware. Pt endorsing 8/10 pain at 12:37, PRN IVP Dilaudid given, pending effectiveness.
[2025-01-12 15:37] VITALS: BP 125/70; PULSE 66; RESP 16; TEMP 36.3; O2SAT 97
[2025-01-12] MEDS: oxyCODONE HCl Immed Release 5 MG TABLET PO (16:44)
[2025-01-12 19:37] VITALS: BP 124/69; PULSE 74; RESP 18; TEMP 36.2; O2SAT 96
[2025-01-12] MEDS: 0.9 % Sodium Chloride Flush 3 ML SYRINGE IVFLUSH (22:52)
[2025-01-13] MEDS: oxyCODONE HCl Immed Release 5 MG TABLET PO ×2 (02:55→10:35)
[2025-01-13 03:27] VITALS: BP 136/75; PULSE 64; RESP 18; O2SAT 95
[2025-01-13 05:33] LABS: MANUAL DIFF FLAG NO
[2025-01-13 05:37] LABS: Hematocrit 41.5 % (42.0-52.0); Hemoglobin 14.1 g/dl (14.0-18.0); Imm Gran Abs Auto 0.02 X10*3/uL (0.00-0.03); Imm Gran Pct Auto 0.2 % (0.0-0.4); Lymphocytes Absolute Auto 3.1 X10*3/uL (1.2-4.9); Mean Corpuscular HGB Conc 34.0 g/dl (31.0-36.0); Mean Corpuscular Hemoglobin 29.5 pg (27.0-33.0); Mean Corpuscular Volume 86.8 fL (80.0-98.0); NRBC Abs Auto 0.000 X10*3/uL (0.0-0.012); NRBC Pct Auto 0.0 /100WBC (0.0-0.2); Platelet Count 207 X10*3/uL (160-400); Red Blood Count 4.78 X10*6/uL (4.60-5.80); White Blood Count 8.6 X10*3/uL (4.8-10.8)
[2025-01-13 07:32] VITALS: BP 113/67; PULSE 76; RESP 16; TEMP 36.3; O2SAT 94
--- NOTE | 2025-01-13 07:34 | P.PNGS_ITS ---
Subjective Subjective Date of Service: 01/13/25 Interval history: Feels better. Incisional pain has improved. Tolerating liquids well Ambulated Physical Exam 2 Vital Signs: Vital Signs: Last Vital Signs Temp 97.4 F 01/13/25 07:32 Pulse 76 01/13/25 07:32 Resp 16 01/13/25 07:32 BP 113/67 01/13/25 07:32 Pulse Ox 94 01/13/25 07:32 O2 Del Method Room Air 01/13/25 07:32 O2 Flow Rate 1 01/12/25 03:36 BMI result Body Mass Index 34.5 GI: Inspection: Yes normal to inspection, Yes incision (clean, dry and intact) and Yes obesity Palpation (GI): Soft to palpation Extrem: Right lower extremity: normal to inspection (no calf tenderness) L eft lower extremity: normal to inspection (no calf tenderness) Objective Data Active Medications Famotidine (Famotidine/Pf 20 Mg/2 Ml Vial) 20 mg IVPUSH BID [facility] Last Admin: 01/12/25 20:53 Dose: 20 mg Documented By: JUDY Famotidine (Famotidine/Pf 20 Mg/2 Ml Vial) 20 mg IVPUSH BID [facility] Last Admin: 01/12/25 20:53 Dose: 20 mg Documented By: JUDY Hydromorphone HCl (Hydromorphone Hcl 0.5 Mg/0.5 Ml Syringe) 0.25 mg IVPUSH Q4H PRN; Protocol PRN Reason: Pain, Severe (Pain Scale 7-10) Last Admin: 01/12/25 21:23 Dose: 0.25 mg Documented By: JUDY Lactated Ringer's (Lr) 1,000 mls @ 100 mls/hr IVCONT .Q10H [facility] Last Admin: 01/12/25 21:27 Dose: 100 mls/hr Documented By: JUDY Acetaminophen (Ofirmev) 1,000 mg in 100 mls @ 16.7 mls/hr IV .Q6H [facility] Last Admin: 01/13/25 02:52 Dose: 16.7 mls/hr Documented By: JUDY Metoclopramide HCl (Metoclopramide Hcl 10 Mg/2 Ml Vial) 10 mg IVPUSH Q6H PRN PRN Reason: Nausea Ondansetron HCl (Ondansetron Hcl 4 Mg/2 Ml Vial) 4 mg IVPUSH Q8H PRN PRN Reason: Nausea Oxycodone HCl (Oxycodone Hcl Immed Release 5 Mg Tablet) 5 mg PO Q4H PRN PRN Reason: Pain, Moderate(Pain Scale 4-6) Last Admin: 01/13/25 02:55 Dose: 5 mg Documented By: JUDY Sodium Chloride (0.9 % Sodium Chloride Flush 3 Ml Syringe) [address] [facility] Last Admin: 01/12/25 22:52 Dose: 3 ml Documented By: JUDY Labs 01/13/25 05:13 01/12/25 06:01 Labs: Laboratory Results - last 24 hr 01/06/25 01/13/25 09:20 05:13 MCV 86.8 MCH 29.5 MCHC 34.0 RDW 11.8 Plt Count 207 MPV 9.5 Immature Gran % (Auto) 0.2 Neut % (Auto) 56.9 Lymph % (Auto) 35.4 Frontier % (Auto) 7.1 Eos % (Auto) 0.2 Baso % (Auto) 0.2 Lymph # (Auto) 3.1 Frontier # (Auto) 0.6 Eos # (Auto) 0.0 Baso # (Auto) 0.0 Abs Immat Gran (auto) 0.02 Absolute Neuts (auto) 4.9 Absolute Nucleated RBC 0.000 Nucleated RBC % (auto) 0.0 Vitamin B1 10 Procedures Date of Service Date of Service: 01/13/25 Progress Note: A&P Assessment and plan (1) S/P repair of paraesophageal hernia: Status: Acute Assessment and Plan: Discharge today. Instructions were discussed with the patient in detail Time Spent With Patient Time: Total time managing care of this patient today ____ minutes. Quality Stroke Does the patient have a stroke diagnosis?: No VTE Prior VTE?: No VTE Risk Level:: Surgical - moderate VTE Device Contraindication: N/A - Device Ordered VTE Drug Contraindication: Treatment Not Indicated
[2025-01-13] MEDS: Lactated Ringers 1,000 ML 100 ML IVCONT (09:34)
--- NOTE | 2025-01-13 10:47 | MHC.CM.PN ---
Patient is discharged to home today. He will receive family support and transportation. No home services ordered or required.
[2025-01-13 11:31] VITALS: BP 110/75; PULSE 64; RESP 16; TEMP 36.2; O2SAT 93
== END 2025-01-13 12:13 | disposition home or self-care (01) | DRG 328 ==
LOC: HO.SSSA 15:15 → HO.S3 15:22
PROVIDERS: Physician Assistant Surgical; Admitting Provider Surgery; PCP Nurse Practitioner Gerontology; Visit Provider Surgery
PROC: 0BQT4ZZ Repair Diaphragm, Percutaneous Endoscopic Approach (ICD-10-PCS; principal; 2025-01-11 13:10)
DX: K44.0 Diaphragmatic hernia with obstruction, without gangrene (principal); K21.9 Gastro-esophageal reflux disease without esophagitis; Z79.899 Other long term (current) drug therapy
CPT/HCPCS: 36415; 80048; 80053; 80061; 82306; 82607; 82728; 83036; 83525; 83540; 84425; 84443; 84590; 84630; 85014; 85018; 85025; 85610; 85730; 86140; 86850; 86900; 86901; 88304; 93005; A4649; C9145; J0131; J0690; J1100; J1171; J1308; J2003; J2250; J2405; J2704; J2795; J3010; J7120

== ENCOUNTER → 2025-01-11 11:49 | Outpatient (BNV) | payer OTHER, SELFPAY | PROVIDERS: Admitting Provider Surgery; PCP Nurse Practitioner Gerontology; Visit Provider Surgery | DX: K44.9 Diaphragmatic hernia without obstruction or gangrene (principal); K21.9 Gastro-esophageal reflux disease without esophagitis; E66.9 Obesity, unspecified; Z68.32 Body mass index [BMI] 32.0-32.9, adult; F32.A Depression, unspecified; F41.9 Anxiety disorder, unspecified; G47.30 Sleep apnea, unspecified; G47.00 Insomnia, unspecified; Z98.890 Other specified postprocedural states; Z87.19 Personal history of other diseases of the digestive system | CPT/HCPCS: 43281; 99024 ==

== ENCOUNTER 2025-01-19 13:31 | Outpatient (AMB) | payer OTHER, SELFPAY ==
--- NOTE | 2025-01-19 13:36 | MHC.OFFVISWM ---
VS Expanded 01/19/25 13:52 BP 126/80 Blood Pressure Location Rt brachial Blood Pressure Position Sitting Pulse 75 Pulse Source Pulse Oximeter Temp 96.6 F L Temperature Source Temporal Artery Scan Pulse Oximetry 96 Oxygen Delivery Method Room Air Height 5 ft 10 in Weight 219 lb 6.4 oz BMI 31.5 Body Fat % 30.4 Body Fat Mass 66.6 Fat Free Mass 152.8 Visceral Fat Rating 11.0 Body Water % 48.7 Body Water Mass 107.0 Muscle Mass/Score 145.2 Basal Metabolic Rate/Score 2,094 Intake Visit Reasons: OV s/p Diaphragmatic Hernia Repair 01/11/25 Allergies pollen Allergy (Unknown, Uncoded 01/05/25 12:36) Unknown Medication List - Last Reconciled 01/19/25 by MITA Suarez clomiphene citrate (Clomid) 50 mg PO Q OTHER DAY Held on 01/13/25. Instructions: Resume on 02/11/25. ondansetron 4 mg PO Q12H pantoprazole 40 mg PO DAILY sucralfate 10 mL PO BID HPI Comments Details: Pt is 2w s/p lap diaphragmatic hernia repair with gastropexy 01/11/2025. Pt reports pain is controlled. Tolerating meal plan- scrambled eggs or cottage cheese for dinner, with 1 protein bar and 1 protein shake. Pt reports a fever over the weekend- 102F. [facility] Medical History (Updated 01/13/25 @ 00:02 by Yousuf Hauser) Insomnia Sleep apnea with use of continuous positive airway pressure (CPAP) Arthritis Back pain Fatty liver Anxiety Sleep apnea BMI 32.0-32.9,adult Obesity Diaphragmatic hernia Depression GERD (gastroesophageal reflux disease) Surgical History (Updated 01/11/25 @ 16:39 by Isaak Craven MD) Hx of colonoscopy History of esophagogastroduodenoscopy (EGD) Hx of knee surgery Family History Maternal Grandfather Colon cancer Maternal Uncle Colon cancer Mother No problems noted. Father No problems noted. Social History Household Members: Spouse Housing: House Are you a primary manager managed care to a significant other at home: No Do you presently have visiting nurse or other home services: No Alcohol intake: never Patient Tobacco Use Status: Never used Tobacco service: Yes Physical Exam Const General: cooperative, comfortable and no acute distress Orientation/consciousness: patient oriented x3 GI Other: soft, nontender, nondistended, steri-strips c/d/i Neuro General: patient oriented x3 Assessment & Plan Assessment & Plan (1) S/P repair of paraesophageal hernia: Code(s): Z98.890 - Other specified postprocedural states; Z87.19 - Personal history of other diseases of the digestive system Category: Medical (2) Obesity: Code(s): E66.9 - Obesity, unspecified Category: Medical Plan May shower tomorrow but no bath or submersion of abdomen in water. May start exercise.? No abdominal exercises x 6 weeks. Abdominal binder for the next 2 weeks with activity or exercise. Continue meal plan per Dr Garsia Reviewed pantoprazole and carafate dosing. Reminded of the pace of drinking 2 mL/min or 1oz per 15 min. 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 May resume Clomid 1mo postop.
[2025-01-19 13:52] VITALS: BP 126/80; PULSE 75; TEMP 35.9; O2SAT 96; BMI 31.5
--- OUTSIDE RECORDS SUMMARY | 2025-01-19 19:15 | XMS_ITS | Clinical Summary ---
Author Organization [facility] it[facility] Address [address] [place] [address] Care Team Providers Care Edging Machine Operator Name Role Phone Unavailable Primary Care Provider [...]
== END 2025-01-19 14:13 | disposition home or self-care (01) ==
LOC: HO.HBS 13:32
PROVIDERS: PCP Nurse Practitioner Gerontology; Referring Provider Physician Assistant Surgical; Visit Provider Physician Assistant Surgical
DX: E66.9 Obesity, unspecified (principal); Z68.31 Body mass index [BMI] 31.0-31.9, adult; Z98.890 Other specified postprocedural states; Z87.19 Personal history of other diseases of the digestive system
CPT/HCPCS: 99024

== ENCOUNTER → 2025-01-19 13:31 | Outpatient (BNVA) | payer OTHER, SELFPAY | PROVIDERS: PCP Nurse Practitioner Gerontology; Visit Provider Physician Assistant Surgical | DX: Z98.890 Other specified postprocedural states (principal); Z87.19 Personal history of other diseases of the digestive system; E66.9 Obesity, unspecified | CPT/HCPCS: 99212 ==

== ENCOUNTER 2025-03-08 13:30 | Outpatient (AMB) | payer OTHER, SELFPAY ==
--- NOTE | 2025-03-08 13:26 | A.OFFVIS_ITS ---
VS Expanded 03/08/25 13:31 Height 5 ft 10 in Weight 227 lb BMI 32.6 Intake Visit Reasons: TV s/p Diaphragmatic Hernia Repair 01/11/25 Allergies pollen Allergy (Unknown, Uncoded 01/05/25 12:36) Unknown Medication List - Last Reconciled 03/08/25 by MITA Suarez clomiphene citrate (Clomid) 50 mg PO Q OTHER DAY Held on 01/13/25. Instructions: Resume on 02/11/25. pantoprazole 40 mg PO DAILY sucralfate 10 mL PO BID HPI Comments Details: This?is a?30?yo M who is lap hiatal hernia repair on?01/11/2025. Presents for 7 week post op visit. Weight gain of about 7.6 lb since last OV at 1w postop. No complaints of nausea, emesis, abdominal pain or reflux, or constipation. He stopped taking PPI and carafate. Rare difficulty swallowing. 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 Father No problems noted. Social History Household Members: Spouse Housing: House Are you a primary patient care representative to a significant other at home: No Do you presently have visiting nurse or other home services: No Alcohol intake: never Patient Tobacco Use Status: Never used Tobacco service: Yes Telehealth Telehealth Telehealth Platform: Telephone Location of provider rendering services: practice address Location of patient: address on file Patient Identification confirmed using: Name, : Yes Telehealth method: voice only Patient verbally consented to treatment: Yes Patient verbally consented to billing insurance company: Yes Patient informed of any privacy concerns related to visit: Yes Minutes spent on Phone/Video with Pt.: 9 Assessment & Plan Assessment & Plan (1) S/P repair of paraesophageal hernia: Code(s): Z98.890 - Other specified postprocedural states; Z87.19 - Personal history of other diseases of the digestive system Category: Surgical (2) Obesity: Code(s): E66.9 - Obesity, unspecified Category: Medical Plan We discussed the risks of not having a structured meal plan after this surgery and not getting adequate protein intake. We discussed that some foods depending on texture or pace of eating/drinking could cause the feeling of getting stuck so to monitor what he eats. Also discussed being careful with portion sizes as to not stretch/stress the repair. He should restart PPI and sucralfate until 3mo postop. RTC Apr 20 at 9am TV.
[2025-03-08 13:31] VITALS: BMI 32.6
== END 2025-03-08 13:40 | disposition home or self-care (01) ==
LOC: HO.HBS 13:30
PROVIDERS: PCP Nurse Practitioner Gerontology; Visit Provider Physician Assistant Surgical
DX: E66.9 Obesity, unspecified (principal); Z68.32 Body mass index [BMI] 32.0-32.9, adult; Z98.890 Other specified postprocedural states; Z87.19 Personal history of other diseases of the digestive system
CPT/HCPCS: 99024